=== PATIENT | male | born 1955 | race Caucasian/White ===

== ENCOUNTER 2016-09-04 11:53 | Observation (INO) | payer MEDICARE, OTHER ==
[2016-09-04] MEDS ORDERED: SODIUM CHLORIDE 0.9% 1,000 ML IV STA ×2 (12:01→12:04)
[2016-09-04] MEDS ORDERED: METOCLOPRAMIDE 5 MG/ML 2 ML VIAL IVP STA (12:01)
[2016-09-04] MEDS ORDERED: HYDROCORTISONE SUCCINATE 100 MG/2 ML VIAL IV STA (12:02)
[2016-09-04] MEDS ORDERED: RX INFO: IV CONTRAST WAS GIVEN 1 EACH MISC MISCELLANE PRN (12:08)
--- NOTE | 2016-09-04 12:12 | ED ---
General Adult HPI - General Chief complaint: Dizziness Stated complaint: nausea/vomiting Time Seen by Provider: 09/04/16 11:54 Source: patient, family, RN notes reviewed Mode of arrival: EMS Limitations: physical limitation - History of Present Illness Initial comments: Patient is a pleasant 61-year-old male presenting to the emergency Department with complaints of nausea and vomiting. Onset was just within the past half hour. Sudden onset. No recent illness. Patient has had similar symptoms approximately 3 times previously. Daily states this is related to his pituitary disease. Patient has a known pituitary tumor and has undergone surgery and Gamma knife. Patient still has the tumor however is unable to have further treatment for this. Patient was told when this happens to take his stress dose of steroids. They're unclear patient has a diagnosed history of adrenal insufficiency. Patient has not been taking his regular steroids recently because he did not like how they made him feel. Patient has been off his regular steroid dose for months. Patient does have some dizziness associated with this. Patient vomits and become sweaty and sometimes does pass out. - Related Data Home Medications Medication Instructions Recorded Confirmed Aspirin 325 mg PO DAILY 09/04/16 09/04/16 Cabergoline 0.5 mg PO WEEKLY 09/04/16 09/04/16 Cholecalciferol [Vitamin D3] 1,000 unit PO DAILY 09/04/16 09/04/16 Levothyroxine Sodium [Synthroid] 112 mcg PO DAILY 09/04/16 09/04/16 Multivitamin [Men's Multi-Vitamin] 1 tab PO DAILY 09/04/16 09/04/16 Niacin 500 mg PO DAILY 09/04/16 09/04/16 Omeprazole [PriLOSEC] 20 mg PO AC-BRKFST 09/04/16 09/04/16 Potassium Chloride 8 meq PO DAILY 09/04/16 09/04/16 Sildenafil Citrate [Sildenafil] 10 mg PO DAILY PRN 09/04/16 09/04/16 Testosterone Cypionate 200 mg IM Q14D 09/04/16 09/04/16 [Depo-Testosterone] Allergies Allergy/AdvReac Type Severity Reaction Status Date / Time codeine Allergy Unknown Verified 09/04/16 13:38 morphine AdvReac Unknown Verified 09/04/16 13:38 Review of Systems ROS Statement: Those systems with pertinent positive or pertinent negative responses have been documented in the HPI. ROS Other: All systems not noted in ROS Statement are negative. Constitutional: Denies: fever Eyes: Denies: eye pain ENT: Denies: ear pain Respiratory: Denies: cough Cardiovascular: Denies: chest pain Endocrine: Denies: fatigue Gastrointestinal: Reports: nausea, vomiting. Denies: abdominal pain Genitourinary: Denies: dysuria Musculoskeletal: Denies: back pain Skin: Denies: rash Neurological: Reports: vertigo. Denies: headache Past Medical History Additional Past Medical History / Comment(s): PITUITARY TUMOR. History of Any Multi-Drug Resistant Organisms: None Reported Additional Past Surgical History / Comment(s): BRAIN SURGERY TO REMOVE TUMOR 1999, 2001,"MESH SURGERY ON STOMACH- HERNIA" Past Psychological History: No Psychological Hx Reported Smoking Status: Never smoker Past Alcohol Use History: None Reported Past Drug Use History: None Reported General Exam Limitations: physical limitation General appearance: alert Head exam: Present: atraumatic Eye exam: Present: normal appearance, PERRL ENT exam: Present: normal oropharynx Neck exam: Present: normal inspection Respiratory exam: Present: normal lung sounds bilaterally Cardiovascular Exam: Present: regular rate, normal rhythm GI/Abdominal exam: Present: soft. Absent: tenderness Extremities exam: Present: normal inspection. Absent: pedal edema, calf tenderness Back exam: Present: normal inspection Neurological exam: Present: alert, oriented X3, CN II-XII intact. Absent: motor sensory deficit Expanded Patient oriented to: Present: person, place, time Speech: Present: fluid speech Cranial nerves: EOM's Intact: Normal Motor strength exam: RUE: 5, LUE: 5, RLE: 5, LLE: 5 Eye Response: (4) open spontaneously Motor Response: (6) obeys commands Verbal Response: (5) oriented Psychiatric exam: Present: normal affect, normal mood Skin exam: Absent: rash Course Vital Signs 09/04/16 09/04/16 09/04/16 11:55 14:27 15:13 Temperature 97 F L Pulse Rate 58 L 60 79 Respiratory 18 18 18 Rate Blood Pressure 129/77 142/78 124/59 O2 Sat by Pulse 95 95 96 Oximetry EKG Findings - EKG Comments: EKG Findings:: Sinus rhythm at 68. First-degree AV block with a ID of 220. PVC present. QRS 94. QT 416. QTC 442. Normal axis. Normal QRS. No acute ST change. Medical Decision Making - Medical Decision Making Patient reexamined and significantly improved. Patient and family updated on results and plan. Case was discussed in detail with Dr. Logan, who will admit for this. Patient. Patient will be observed secondary to likely history of adrenal insufficiency for monitoring and of blood pressure and further illness. - Lab Data Result diagrams: 09/04/16 11:20 09/04/16 11:20 Lab Results 09/04/16 09/04/16 09/04/16 Range/Units 11:20 11:20 11:20 WBC 6.4 (3.8-10.6) k/uL RBC 5.12 (4.30-5.90) m/uL Hgb 16.6 (13.0-17.5) gm/dL Hct 47.9 (39.0-53.0) % MCV 93.5 (80.0-100.0) fL MCH 32.4 (25.0-35.0) pg MCHC 34.7 (31.0-37.0) g/dL RDW 12.0 (11.5-15.5) % Plt Count 172 (150-450) k/uL Neutrophils % 61 % Lymphocytes % 27 % Monocytes % 6 % Eosinophils % 3 % Basophils % 1 % Neutrophils # 3.9 (1.3-7.7) k/uL Lymphocytes # 1.7 (1.0-4.8) k/uL Monocytes # 0.4 (0-1.0) k/uL Eosinophils # 0.2 (0-0.7) k/uL Basophils # 0.1 (0-0.2) k/uL Sodium 142 (137-145) mmol/L Potassium 4.3 (3.5-5.1) mmol/L Chloride 107 (98-107) mmol/L Carbon Dioxide 23 (22-30) mmol/L Anion Gap 12 mmol/L BUN 17 (9-20) mg/dL Creatinine 1.00 (0.66-1.25) mg/dL Est GFR (MDRD) Af Amer >60 (>60 ml/min/1.73 sqM) Est GFR (MDRD) Non-Af >60 (>60 ml/min/1.73 sqM) Glucose 140 H (74-99) mg/dL Calcium 9.0 (8.4-10.2) mg/dL Magnesium 2.0 (1.6-2.3) mg/dL Total Bilirubin 0.6 (0.2-1.3) mg/dL AST 26 (17-59) U/L ALT 37 (21-72) U/L Alkaline Phosphatase 75 (38-126) U/L Total Creatine Kinase 154 (55-170) U/L CK-MB (CK-2) 2.3 (0.0-2.4) ng/mL CK-MB (CK-2) Rel Index 1.5 Troponin I <0.012 (0.000-0.034) ng/mL Total Protein 6.8 (6.3-8.2) g/dL Albumin 4.3 (3.5-5.0) g/dL TSH 1.370 (0.465-4.680) mIU/L Free T4 1.11 (0.78-2.19) ng/dL Free T3 pg/mL 3.6 (2.8-5.3) pg/ml Prolactin <1.4 L (3.7-17.9) ng/mL Cortisol 20 ug/dL - Radiology Data Radiology results: image reviewed (Chest x-ray shows no acute process. Computed tomography scan of the brain does show fullness in the sellar region.) Disposition Clinical Impression: Nausea and vomiting, Adrenal insufficiency Disposition: ADMITTED IP TO THIS HOSP
[2016-09-04] MEDS ORDERED: FAMOTIDINE 20 MG/2 ML VIAL IV STA (12:15)
[2016-09-04 12:29] LABS: Basophils # (A) 0.1 k/uL (0-0.2); Basophils % (A) 1 %; CH 34.1; CHCM 36.5; Eosinophils # (A) 0.2 k/uL (0-0.7); Eosinophils % (A) 3 %; HCT 47.9 % (39.0-53.0); HDW 2.75; HGB 16.6 gm/dL (13.0-17.5); Luc # (Auto) 0.16; Luc % (Auto) 3; Lymphocytes # (A) 1.7 k/uL (1.0-4.8); Lymphocytes % (A) 27 %; MCH 32.4 pg (25.0-35.0); MCHC 34.7 g/dL (31.0-37.0); MCV 93.5 fL (80.0-100.0); Mean Platelet Volume 6.5; Monocytes # (A) 0.4 k/uL (0-1.0); Monocytes % (A) 6 %; Neutrophils # (A) 3.9 k/uL (1.3-7.7); Neutrophils % (A) 61 %; RBC 5.12 m/uL (4.30-5.90); WBC 6.4 k/uL (3.8-10.6)
[2016-09-04 12:38] LABS: ALT 37 U/L (21-72); AST 26 U/L (17-59); Alkaline Phosphatase 75 U/L (38-126); Anion Gap 12 mmol/L; Blood Urea Nitrogen 17 mg/dL (9-20); Carbon Dioxide 23 mmol/L (22-30); Chloride 107 mmol/L (98-107); Glucose 140 mg/dL (74-99); Non-African American GFR(MDRD) >60 (>60 ml/min/1.73 sqM); Potassium 4.3 mmol/L (3.5-5.1); Sodium 142 mmol/L (137-145); Total Bilirubin 0.6 mg/dL (0.2-1.3); Total Protein 6.8 g/dL (6.3-8.2)
[2016-09-04 12:52] LABS: Creatine Kinase 154 U/L (55-170)
[2016-09-04 12:57] LABS: Prolactin <1.4 ng/mL (3.7-17.9)
[2016-09-04 13:06] LABS: Creatine Kinase MB 2.3 ng/mL (0.0-2.4); Troponin I <0.012 ng/mL (0.000-0.034)
--- NOTE | 2016-09-04 13:43 | CT ---
EXAMINATION TYPE: CT brain wo/w con DATE OF EXAM: 09/04/2016 1:33 PM COMPARISON: NONE HISTORY: near syncope with h/o Pituitary tumor CT DLP: 2345 mGycm Automated Exposure Control for Dose Reduction was Utilized. TECHNIQUE: CT scan of the head is performed with IV contrast.,CT scan of the head is performed withou t and with IV Contrast, patient injected with 100 mL of Omnipaque 300. FINDINGS: Noncontrast images show no acute intracranial hemorrhage or midline shift. The ventricles and sulci are within normal limits in size. Cardenas-white matter differentiation is maintained. Postcon trast images show no suspicious enhancing intraparenchymal mass. There is however expansion of the se lla suggestion of calcific and soft tissue density, sellar mass or recurrent pituitary neoplasm needs to BE considered. Erosive changes into the bilateral sphenoid sinuses is felt present with mass exte nsion. Indistinct margins from adjacent carotid siphons are noted. Optic chiasm is not effaced. The g lobes are intact and the remainder of the paranasal sinuses are clear. IMPRESSION: Abnormal expansile sellar mass in which recurrent neoplasm or pituitary macroadenoma need s to BE considered. Correlation with old outside CT or MRI may be beneficial. MRI and neurosurgical f ollow-up may be beneficial.
--- NOTE | 2016-09-04 13:47 | XR ---
EXAMINATION TYPE: XR chest 2V DATE OF EXAM: 09/04/2016 1:38 PM COMPARISON: NONE HISTORY: Vomiting and nausea FINDINGS: The lungs are clear and there is no pneumothorax, pleural effusion, or focal pneumonia. There is pl eural-based thickening bilaterally and mild cardiomegaly. Hyperinflation suggests COPD. Mild hypertro phic change of the spine. IMPRESSION: 1. No acute process. 2. Correlate for COPD and chronic interstitial lung disease.
[2016-09-04] MEDS ORDERED: NALOXONE 0.4 MG/ML 1 ML VIAL IV PRN (15:29)
[2016-09-04] MEDS ORDERED: ONDANSETRON 4 MG/2 ML VIAL IVP PRN (15:29)
[2016-09-04] MEDS ORDERED: SODIUM CHLORIDE 0.9% 1,000 ML IV SCH (15:30)
[2016-09-04 15:44] LABS: Appearance,Urine Clear (Clear); Bilirubin,Urine Negative (Negative); Glucose,Urine (UA) Negative (Negative); Ketones,Urine Negative (Negative); Leukocyte Esterase,Urine Negative (Negative); Nitrite,Urine Negative (Negative); Protein,Urine Negative (Negative); UA Billing (MACRO vs. MICRO) CHEM; Urobilinogen,Urine <2.0 mg/dL (<2.0)
[2016-09-04] MEDS ORDERED: MECLIZINE 25 MG TAB PO PRN (16:42)
[2016-09-04] MEDS: HYDROCORTISONE SUCCINATE 100 MG/2 ML VIAL IV SCH (17:48)
[2016-09-05] MEDS: HYDROCORTISONE SUCCINATE 100 MG/2 ML VIAL IV SCH ×3 (00:03→12:02)
[2016-09-05 08:29] VITALS: RESP 18
[2016-09-05] MEDS ORDERED: PANTOPRAZOLE 40 MG/10 ML VIAL IV SCH (09:00)
[2016-09-05 12:31] VITALS: BP 135/71; PULSE 88; TEMP 97.5
--- NOTE | 2016-09-05 16:16 | HP ---
H&P AND DISCHARGE SUMMARY DATE OF ADMISSION: Patient is a 61-year-old pleasant gentleman who came into the emergency department with complaints of nausea, vomiting. Patient had similar episodes in the past. Whenever he is under stress, patient has these symptoms of nausea, vomiting, lightheadedness, as patient has a pituitary macroadenoma with panhypopituitarism, because of which patient is on hormone supplementation, including testosterone thyroid supplementation and cortisol supplementation. Patient came in with similar symptoms. Patient denied any fever or chills. Patient denied any dysuria. Patient denied any abdominal pain. Patient denied flu-like symptoms. Patient was given IV fluids, watched one night, and patient's symptoms have resolved at this point of time. Patient apparently was not under stress yesterday when he had these symptoms. Patient had a CT of the head which did show macroadenoma. Patient will be asked to follow up with the neurosurgeon he normally follows up with for this macroadenoma. Patient has an appointment to see the doctor. Patient underwent pituitary tumor therapy and gamma knife surgery in the past. REVIEW OF SYSTEMS: CONSTITUTIONAL: No fever, no malaise, no fatigue. HEENT: No recent visual problems or hearing problems. Denied any sore throat. CARDIOVASCULAR: No chest pain, orthopnea, PND, no palpitations, no syncope. PULMONARY: No shortness of breath, no cough, no hemoptysis. GASTROINTESTINAL: As described in HPI. NEUROLOGICAL: No headaches, no weakness, no numbness. HEMATOLOGICAL: Denies any bleeding or petechiae. GENITOURINARY: Denies any burning micturition, frequency, or urgency. MUSCULOSKELETAL/RHEUMATOLOGICAL: Denies any joint pain, swelling, or any muscle pain. ENDOCRINE: Denies any polyuria or polydipsia. The rest of the 14 point review of systems is negative. Home medications include: 1. Aspirin. 2. Cabergoline. 3. Cholecalciferol. 4. Levothyroxine. 5. Niacin. 6. Omeprazole. 7. Potassium chloride. 8. Sildenafil. 9. Testosterone. ALLERGIES: CODEINE and MORPHINE. Past medical history is significant for pituitary tumor and brain surgery for removal of pituitary tumor. Panhypopituitarism. SOCIAL HISTORY: Denied any smoking, alcohol abuse or any drug abuse. FAMILY HISTORY: Denied any family history of hypertension or diabetes mellitus or coronary artery disease in the family. PHYSICAL EXAMINATION: VITAL SIGNS: Temperature 97.0, pulse of 60, respiratory rate of 18, blood pressure 124/59. Saturating at 96% on room air. GENERAL: The patient is alert and oriented x3, not in any acute distress. Well developed, well nourished. HEENT: Pupils are round and equally reacting to light. EOMI. No scleral icterus. No conjunctival pallor. Normocephalic, atraumatic. No pharyngeal erythema. No thyromegaly. CARDIOVASCULAR: S1 and S2 present. No murmurs, rubs, or gallops. PULMONARY: Chest is clear to auscultation, no wheezing or crackles. ABDOMEN: Soft, nontender, nondistended, normoactive bowel sounds. No palpable organomegaly. MUSCULOSKELETAL: No joint swelling or deformity. EXTREMITIES: No cyanosis, clubbing, or pedal edema. NEUROLOGICAL: Gross neurological examination did not reveal any focal deficits. SKIN: No rashes. LABORATORY DATA: CBC, CMP are essentially within normal limits. ACTH is less than 5. Prolactin level is low at 1.4, as patient is on cabergoline. Creatinine is essentially within normal limits. ASSESSMENT AND PLAN: 1. Nausea, vomiting, lightheadedness secondary to panhypopituitarism. No further intervention at this point of time. Patient will follow up with his regular county treasurer and Neurosurgery as an outpatient. Patient received IV fluids ( ) watched him overnight. Patient will be discharged today. 2. Panhypopituitarism. Further evaluation and treatment and followup as per his regular county treasurer and Neurosurgery. Patient can be continued on levothyroxine, testosterone, stress doses of steroids, cabergoline. 3. Obesity. Counseling was provided regarding that. Patient will be discharged today.
[2016-09-06] MEDS ORDERED: PANTOPRAZOLE 40 MG TABLET PO SCH (09:00)
== END 2016-09-05 14:10 | disposition home or self-care (01) ==
LOC: EC 11:53 → 3OBS 15:29
PROVIDERS: ADMIT Internal Medicine; ATTEND Internal Medicine
DX: E23.0 Hypopituitarism (principal); R11.2 Nausea with vomiting, unspecified; R42 Dizziness and giddiness; E66.9 Obesity, unspecified; D35.2 Benign neoplasm of pituitary gland; Z79.82 Long term (current) use of aspirin; Z79.899 Other long term (current) drug therapy; Z88.5 Allergy status to narcotic agent
CPT/HCPCS: 99285 ×2; 96374 ×2; 96375 ×5; 96361 ×4; 96376 ×2; 36415; 93005; 84439; 84481; 80053; 82533; 82550; 82553; 83735; 84443; 84484; 85025; 81003; 84146; 82024; 71020; 70470; G0378 ×2; J2765; J1720 ×2; J2405; Q9967; C9113

== ENCOUNTER → 2016-11-23 | Outpatient (CLI) | payer OTHER ==
--- NOTE | 2016-11-29 11:52 | P.ARTDOP ---
Arterial Doppler LOWER EXTREMITY ARTERIAL DOPPLER: DATE OF SERVICE: 11/23/2016 Reason for study: Left leg ulcer. Doppler waveforms: Multiphasic bilaterally throughout. Pulse volume recording: Normal configuration. Pressure gradients: None. Ankle-brachial indices: Greater than 1 bilaterally. Toe pressures: 1:15 on the right, 126 on the left Impression: Normal study.
== END | disposition home or self-care (01) ==
LOC: RADUSWWP 14:24
PROVIDERS: ATTEND Family Medicine
DX: L97.529 Non-pressure chronic ulcer of other part of left foot with unspecified severity (principal)
CPT/HCPCS: 93923

== ENCOUNTER → 2017-06-13 | Outpatient (CLI) | payer OTHER | END | disposition home or self-care (01) | LOC: LABWHC1 07:27 | PROVIDERS: ATTEND Internal Medicine Endocrinology, Diabetes & Metabolism | DX: D35.2 Benign neoplasm of pituitary gland (principal) | CPT/HCPCS: 36415; 82024; 82533 ==

== ENCOUNTER → 2018-08-08 | Outpatient (CLI) | payer OTHER ==
--- NOTE | 2018-08-11 22:18 | MR ---
EXAMINATION TYPE: MR knee LT wo con DATE OF EXAM: 08/08/2018 COMPARISON: None HISTORY: 63-year-old male Pain in left knee TECHNIQUE: Multiplanar, multisequence imaging of the left knee is performed without IV contrast. FINDINGS: ACL and PCL remain intact. MCL is intact but is medially bowed secondary to an underlying torn and extruded medial meniscus. Tea r extends throughout the meniscal body with a large partial radial tear at the posterior root. There is severe loss of cartilage and joint space within the mid weightbearing and mid peripheral asp ect of the joint with reactive marrow edema and degenerative spurring. The LCL complex appears intact. Degenerative signal is noted within the lateral meniscus. No discrete meniscal tear is seen. There is degenerative spurring of the lateral compartment with overall maintained lateral compartment articul ar cartilage. Moderate diffuse cartilage loss along the patellar facets with degenerative spurring in the patellofe moral compartment. There is a scebv-tm-gkkexfqk knee joint effusion and a small leaking Lazaro's cyst measuring 5.0 cm lo ng. Small loose bodies are present in the anterior aspect of the tibiofemoral joint measuring 1 cm. Extensor mechanism is intact. Prominent intermediate signal along the proximal deep fibers of the pat ellar tendon compatible with tendinosis. Nonspecific anterior soft tissue swelling. Normal popliteal artery anatomy in muscle bulk. No suspicious bone marrow placement. Some patchy red marrow is present into be seen in the setting of anemia, obesity, smoking, and chronic disease. IMPRESSION: 1. Severe medial compartmental osteoarthrosis with a torn and extruded medial meniscus. Reactive ana ow signal changes prominent along the mid weightbearing and mid peripheral aspect of the medial vladislav rtment joint. 2. Additional degenerative spurring in the lateral and patellofemoral compartments with mild overall patellofemoral compartment osteoarthrosis. 3. Gqjiw-dr-uwtiwfut knee joint effusion with loose bodies in the anterior joint measuring 1 cm and a small leaking Lazaro's cyst. 4. Prominent proximal patellar tendinosis without discrete tear.
== END | disposition home or self-care (01) ==
LOC: RADMRIMAIN 12:58
DX: S83.242A Other tear of medial meniscus, current injury, left knee, initial encounter (principal); M17.12 Unilateral primary osteoarthritis, left knee; M71.22 Synovial cyst of popliteal space [Baker], left knee; M67.864 Other specified disorders of tendon, left knee

== ENCOUNTER 2020-11-03 12:39 | Emergency (ER) | payer MEDICARE, OTHER ==
[2020-11-03 14:53] LABS: Basophils # (A) 0.1 k/uL (0-0.2); Basophils % (A) 1 %; Eosinophils % (A) 0 %; HCT 39.4 % (39.0-53.0); HGB 14.2 gm/dL (13.0-17.5); Lymphocytes # (A) 0.4 k/uL (1.0-4.8); Lymphocytes % (A) 3 %; MCH 32.4 pg (25.0-35.0); MCV 90.1 fL (80.0-100.0); Mean Platelet Volume 7.1; Monocytes # (A) 0.6 k/uL (0-1.0); Monocytes % (A) 6 %; Neutrophils # (A) 9.4 k/uL (1.3-7.7); Neutrophils % (A) 88 %; Platelet Count 283 k/uL (150-450); RBC 4.38 m/uL (4.30-5.90); RDW 12.1 % (11.5-15.5); WBC 10.8 k/uL (3.8-10.6)
--- NOTE | 2020-11-03 14:53 | XR ---
EXAMINATION TYPE: XR chest 1V portable DATE OF EXAM: 11/03/2020 COMPARISON: 09/04/2016 HISTORY: Difficulty breathing TECHNIQUE: Single frontal view of the chest is obtained. FINDINGS: Patchy bilateral interstitial changes are noted. Heart is enlarged. No pleural effusion or pneumothorax. Underlying COPD suspected. IMPRESSION: Bilateral diffuse interstitial pattern correlate for interstitial pneumonia.
[2020-11-03] MEDS ORDERED: BAMLANIVIMAB (EUA) 700 MG, ETESEVIMAB (EUA) 1,400 MG in SODIUM CHLORIDE 0.9% 50 ML IVPB ONE (15:00)
[2020-11-03 15:09] LABS: ALT 27 U/L (4-49); AST 36 U/L (17-59); African American GFR (CKD) >90 (>60 ml/min/1.73 sqM); Albumin 3.4 g/dL (3.5-5.0); Alkaline Phosphatase 57 U/L (38-126); Anion Gap 9 mmol/L; Blood Urea Nitrogen 23 mg/dL (9-20); Calcium 8.6 mg/dL (8.4-10.2); Carbon Dioxide 25 mmol/L (22-30); Chloride 99 mmol/L (98-107); Glucose 164 mg/dL (74-99); Non-African American GFR(CKD) >90 (>60 ml/min/1.73 sqM); Potassium 4.5 mmol/L (3.5-5.1); Sodium 133 mmol/L (137-145); Total Bilirubin 0.7 mg/dL (0.2-1.3); Total Protein 6.1 g/dL (6.3-8.2)
--- NOTE | 2020-11-03 15:47 | ED ---
SOB HPI - General Chief Complaint: Shortness of Breath Stated Complaint: COVID +,CHACHO, Low OXygen Time Seen by Provider: 11/03/20 12:55 Source: patient Mode of arrival: ambulatory Limitations: no limitations - History of Present Illness Initial Comments: Patient is a 65-year-old male presents emergency Department with reported shortness of breath and cough. Patient was seen at [facility] on the second for similar complaint and was diagnosed with Covid. He was discharged home on prednisone. Patient has been taking medications as directed without improvement in his symptoms. He returned to [facility] 2 days ago stating that his breathing was getting worse. He reports that he was given 2 Tylenol and discharged home. He has been checking his pulse ox at home and states it has been dropping down into the 80s. Patient feels short of breath with walking. Also admits to nausea and diarrhea. Patient denies previous history of underlying pulmonary or cardiac issues. Denies any chest pain. No lower trauma swelling. No history of DVT or PE. No other alleviating, precipitating modifying factors - Related Data Home Medications Medication Instructions Recorded Confirmed Aspirin 325 mg PO DAILY 09/04/16 09/19/17 Cabergoline 0.5 mg PO WEEKLY 09/04/16 09/19/17 Cholecalciferol [Vitamin D3] 1,000 unit PO DAILY 09/04/16 09/19/17 Levothyroxine Sodium [Synthroid] 112 mcg PO DAILY 09/04/16 09/19/17 Multivitamin [Men's Multi-Vitamin] 1 tab PO DAILY 09/04/16 09/19/17 Sildenafil Citrate [Sildenafil] 10 mg PO DAILY PRN 09/04/16 09/19/17 Testosterone Cypionate 200 mg IM Q14D 09/04/16 09/19/17 [Depo-Testosterone] Allergies Allergy/AdvReac Type Severity Reaction Status Date / Time codeine Allergy Unknown Verified 11/03/20 13:02 morphine AdvReac Unknown Verified 11/03/20 13:02 Review of Systems ROS Statement: Those systems with pertinent positive or pertinent negative responses have been documented in the HPI. ROS Other: All systems not noted in ROS Statement are negative. Past Medical History Past Medical History: GERD/Reflux, Memory Impairment, Osteoarthritis (OA), Pneumonia, Prostate Disorder, Sleep Apnea/CPAP/BIPAP, Thyroid Disorder Additional Past Medical History / Comment(s): PITUITARY TUMOR removed x 2 has some short term memory since sx .cyst on liver,asthma as child, gout, chronic b ack pain,lt lower leg wound since mar 2016(lower legs discolored( stated poor circulation), in the past took meds for bp and chol-took himself off them, cataracts, had pne and shingles vaccine at [facility] closed at time of admit unable to verify dates. History of Any Multi-Drug Resistant Organisms: None Reported Past Surgical History: Hernia Repair Additional Past Surgical History / Comment(s): sx to removed pituitary tumor-it grew back and in 1999 had it removed again,also had gamma knife radiation tx, deviated septum repair, jaw sx-removed benign tumor, metal removed from rt eye, colonoscopy/polypectomt(benign), 2001,"MESH SURGERY ON STOMACH- HERNIA" Past Anesthesia/Blood Transfusion Reactions: Postoperative Nausea & Vomiting (PONV) Additional Past Anesthesia/Blood Transfusion Reaction / Comment(s): "sensative to opiod based narcotics" never received any blood. Past Psychological History: No Psychological Hx Reported Smoking Status: Former smoker Past Alcohol Use History: None Reported Past Drug Use History: None Reported - Past Family History Mother Family Medical History: Hypertension, Myocardial Infarction ([place]) Additional Family Medical History / Comment(s): 13 people on mom's side of family from [place] Father Family Medical History: Myocardial Infarction ([place]) Additional Family Medical History / Comment(s): grandfather cad, from blood clot General Exam Limitations: no limitations General appearance: alert, in no apparent distress Head exam: Present: atraumatic, normocephalic, normal inspection Eye exam: Present: normal appearance, PERRL, EOMI. Absent: scleral icterus, c onjunctival injection, periorbital swelling ENT exam: Present: normal exam, mucous membranes moist Neck exam: Present: normal inspection. Absent: tenderness, meningismus, lymphadenopathy Respiratory exam: Present: normal lung sounds bilaterally. Absent: respiratory distress, wheezes, rales, rhonchi, stridor Cardiovascular Exam: Present: regular rate, normal rhythm, normal heart sounds. Absent: systolic murmur, diastolic murmur, rubs, gallop, clicks GI/Abdominal exam: Present: soft, normal bowel sounds. Absent: distended, tenderness, guarding, rebound, rigid Extremities exam: Present: normal inspection, full ROM, normal capillary refill. Absent: tenderness, pedal edema, joint swelling, calf tenderness Back exam: Present: normal inspection Neurological exam: Present: alert, oriented X3, CN II-XII intact Psychiatric exam: Present: normal affect, normal mood Skin exam: Present: warm, dry, intact, normal color. Absent: rash Course Vital Signs 11/03/20 11/03/20 11/03/20 12:53 13:37 16:45 Temperature 99.1 F 99.9 F H Pulse Rate 82 71 69 Respiratory 18 24 18 Rate Blood Pressure 122/77 140/86 O2 Sat by Pulse 88 L 96 Oximetry 11/03/20 16:55 Temperature Pulse Rate 89 Respiratory 18 Rate Blood Pressure 136/87 O2 Sat by Pulse 94 L Oximetry Medical Decision Making - Medical Decision Making Upon arrival the patient is placed into room 15. Thorough history and physical exam was performed per patient's taken off of the supplemental oxygen and maintained saturations around 91% without ambulation. I did discuss diagnosis, differential and treatment plans. Laboratory studies are conducted. Chest x- ray is performed which demonstrates bilateral diffuse interstitial pattern. These results are discussed with patient. Patient is requesting BAM infusion and discharge. This treatment is discussed with the patient versus inpatient placement in the patient does continue to request outpatient treatment. Patient was given BAM infusion. Instructed to follow up with his primary care doctor. Quarantine until his symptoms improve. Return to the emergency department for any new or worsening symptoms. Continue to watch his pulse ox. The patient agreed to this and is discharged home in stable condition with strict return parameters - Lab Data Result diagrams: 11/03/20 14:30 11/03/20 14:30 Lab Results 11/03/20 11/03/20 11/03/20 Range/Units 14:30 14:30 15:01 WBC 10.8 H (3.8-10.6) k/uL RBC 4.38 (4.30-5.90) m/uL Hgb 14.2 (13.0-17.5) gm/dL Hct 39.4 (39.0-53.0) % MCV 90.1 (80.0-100.0) fL MCH 32.4 (25.0-35.0) pg MCHC 36.0 (31.0-37.0) g/dL RDW 12.1 (11.5-15.5) % Plt Count 283 (150-450) k/uL MPV 7.1 Neutrophils % 88 % Lymphocytes % 3 % Monocytes % 6 % Eosinophils % 0 % Basophils % 1 % Neutrophils # 9.4 H (1.3-7.7) k/uL Lymphocytes # 0.4 L (1.0-4.8) k/uL Monocytes # 0.6 (0-1.0) k/uL Eosinophils # 0.0 (0-0.7) k/uL Basophils # 0.1 (0-0.2) k/uL Sodium 133 L (137-145) mmol/L Potassium 4.5 (3.5-5.1) mmol/L Chloride 99 (98-107) mmol/L Carbon Dioxide 25 (22-30) mmol/L Anion Gap 9 mmol/L BUN 23 H (9-20) mg/dL Creatinine 0.78 (0.66-1.25) mg/dL Est GFR (CKD-EPI)AfAm >90 (>60 ml/min/1.73 sqM) Est GFR (CKD-EPI)NonAf >90 (>60 ml/min/1.73 sqM) Glucose 164 H (74-99) mg/dL Plasma Lactic Acid Too 1.9 (0.7-2.0) mmol/L Calcium 8.6 (8.4-10.2) mg/dL Total Bilirubin 0.7 (0.2-1.3) mg/dL AST 36 (17-59) U/L ALT 27 (4-49) U/L Alkaline Phosphatase 57 (38-126) U/L Total Protein 6.1 L (6.3-8.2) g/dL Albumin 3.4 L (3.5-5.0) g/dL - EKG Data EKG Comments: EKG demonstrates a sinus rhythm with a ventricular rate of 70. GA interval 180. QRS E4. QTC 440. No acute ST segment elevations or depressions Disposition Clinical Impression: COVID-19 Disposition: HOME SELF-CARE Condition: Stable Instructions (If sedation given, give patient instructions): Coronavirus Disease 2019 (COVID-19) Additional Instructions: You received BAM today for Covid. Continue to watch your pulse ox. Return to the ED for any new or worsening symptoms. Is patient prescribed a controlled substance at d/c from ED?: No Referrals: [facility],Clinic [Primary Care Provider] - 1-2 days Time of Disposition: 15:46
[2020-11-03] MEDS ORDERED: SODIUM CHLORIDE 0.9% 50 ML IVPB ONE (16:00)
[2020-11-03 16:46] VITALS: RESP 18; TEMP 99.9
[2020-11-03 16:56] VITALS: BP 136/87; PULSE 89
== END 2020-11-03 16:55 | disposition home or self-care (01) ==
LOC: EC 12:39
DX: U07.1 COVID-19 (principal); J45.909 Unspecified asthma, uncomplicated; K21.9 Gastro-esophageal reflux disease without esophagitis; M19.90 Unspecified osteoarthritis, unspecified site; G47.33 Obstructive sleep apnea (adult) (pediatric); Z87.891 Personal history of nicotine dependence; Z79.82 Long term (current) use of aspirin
CPT/HCPCS: 36415; 93005; 80053; 83605; 85025; 71045; 99285; 96374; Q0245

== ENCOUNTER 2020-11-15 20:28 | Inpatient (IN) | payer MEDICARE ==
--- NOTE | 2020-11-15 20:43 | ED ---
General Adult HPI - General Source: patient, RN notes reviewed Mode of arrival: ambulatory Limitations: no limitations <Taiwo Stroud - Last Filed: 11/16/20 03:07> <Deyvi Ybarra - Last Filed: 11/30/20 21:36> - General Stated complaint: SOB,Blood in vomit Time Seen by Provider: 11/15/20 20:41 - History of Present Illness Initial comments: This a 65-year-old male presents emergency Department chief complaint shortness breath, hemoptysis. Patient states that he was here 12 days ago and received monoclonal antibodies for cold it Patient states that today he started getting some irritation from smoke when he was cooking and states that he started coughing and which she coughed up some blood. Patient states that he is having some pleuritic left-sided chest discomfort. Denies any fevers or chills. Patient states he feels like he has left-sided lung pain. Patient denies any abdominal pain or vomiting. (Taiwo Stroud) - Related Data Home Medications Medication Instructions Recorded Confirmed Aspirin 325 mg PO DAILY@0700 09/04/16 11/16/20 Cholecalciferol [Vitamin D3 (25 100 mcg PO DAILY@0700 09/04/16 11/16/20 Mcg = 1000 Iu)] Levothyroxine Sodium [Synthroid] 112 mcg PO DAILY@0600 09/04/16 11/16/20 Testosterone Cypionate 200 mg IM Q14D 09/04/16 11/16/20 [Depo-Testosterone] Atorvastatin [Lipitor] 10 mg PO HS 11/16/20 11/16/20 Furosemide [Lasix] 40 mg PO DAILY@0600 11/16/20 11/16/20 Hydrocortisone [Cortef] 5 mg PO DAILY@1500 11/16/20 11/16/20 Hydrocortisone [Cortef] 10 mg PO DAILY@0700 11/16/20 11/16/20 Omeprazole 20 mg PO DAILY@0700 11/16/20 11/16/20 Previous Rx's Medication Instructions Recorded Acetaminophen Tab [Tylenol] 650 mg PO Q6HR PRN tab 11/19/20 Ascorbic Acid [Vitamin C] 1,000 mg PO DAILY #60 tab 11/19/20 Dexamethasone [Decadron] 6 mg PO DAILY 7 Days #7 tablet 11/19/20 Zinc Sulfate [Orazinc] 220 mg PO DAILY #30 cap 11/19/20 Allergies Allergy/AdvReac Type Severity Reaction Status Date / Time codeine Allergy Unknown Verified 11/15/20 20:43 morphine AdvReac Unknown Verified 11/15/20 20:43 Review of Systems ROS Other: All systems not noted in ROS Statement are negative. <Taiwo Stroud - Last Filed: 11/16/20 03:07> ROS Other: All systems not noted in ROS Statement are negative. <Deyvi Ybarra - Last Filed: 11/30/20 21:36> ROS Statement: Those systems with pertinent positive or pertinent negative responses have been documented in the HPI. Past Medical History Past Medical History: GERD/Reflux, Memory Impairment, Osteoarthritis (OA), Pneumonia, Prostate Disorder, Sleep Apnea/CPAP/BIPAP, Thyroid Disorder Additional Past Medical History / Comment(s): PITUITARY TUMOR removed x 2 has some short term memory since sx .cyst on liver,asthma as child, gout, chronic back pain,lt lower leg wound since mar 2016(lower legs discolored( stated poor circulation), in the past took meds for bp and chol-took himself off them, cataracts, had pne and shingles vaccine at [facility] at time of admit unable to verify dates. History of Any Multi-Drug Resistant Organisms: None Reported Past Surgical History: Hernia Repair Additional Past Surgical History / Comment(s): sx to removed pituitary tumor-it grew back and in 1999 had it removed again,also had gamma knife radiation tx, deviated septum repair, jaw sx-removed benign tumor, metal removed from rt eye, colonoscopy/polypectomt(benign), 2001,"MESH SURGERY ON STOMACH- HERNIA" Past Anesthesia/Blood Transfusion Reactions: Postoperative Nausea & Vomiting (PONV) Additional Past Anesthesia/Blood Transfusion Reaction / Comment(s): "sensative to opiod based narcotics" never received any blood. Past Psychological History: No Psychological Hx Reported Smoking Status: Former smoker Past Alcohol Use History: None Reported Past Drug Use History: None Reported - Past Family History Mother Family Medical History: Hypertension, Myocardial Infarction ([place]) Additional Family Medical History / Comment(s): 13 people on mom's side of family from mi's Father Family Medical History: Myocardial Infarction ([place]) Additional Family Medical History / Comment(s): grandfather cad, from blood clot <Taiwo Stroud M - Last Filed: 11/16/20 03:07> General Exam General appearance: alert, in no apparent distress Head exam: Present: atraumatic, normocephalic, normal inspection Eye exam: Present: normal appearance, PERRL, EOMI. Absent: scleral icterus, conjunctival injection, periorbital swelling ENT exam: Present: normal exam, normal oropharynx, mucous membranes moist Neck exam: Present: normal inspection. Absent: tenderness, meningismus, lymphadenopathy Respiratory exam: Present: rhonchi. Absent: normal lung sounds bilaterally, respiratory distress, wheezes, rales, stridor Cardiovascular Exam: Present: regular rate, normal rhythm, normal heart sounds. Absent: systolic murmur, diastolic murmur, rubs, gallop, clicks Extremities exam: Absent: pedal edema, calf tenderness <Taiwo Stroud M - Last Filed: 11/16/20 03:07> Course Vital Signs 11/15/20 11/15/20 11/15/20 20:40 22:58 23:00 Temperature 98.3 F Pulse Rate 99 94 95 Respiratory 20 29 H 22 Rate Blood Pressure 151/91 138/82 O2 Sat by Pulse 95 93 L 97 Oximetry 11/15/20 11/16/20 11/16/20 23:30 00:00 00:30 Temperature Pulse Rate 97 98 92 Respiratory 19 19 30 H Rate Blood Pressure 133/89 137/88 135/85 O2 Sat by Pulse 95 94 L 95 Oximetry 11/16/20 11/16/20 11/16/20 01:00 01:15 01:16 Temperature Pulse Rate 96 96 Respiratory 18 24 25 H Rate Blood Pressure 135/86 146/93 O2 Sat by Pulse 94 L 94 L Oximetry 11/16/20 11/16/20 11/16/20 01:30 02:00 06:42 Temperature 97.9 F Pulse Rate 93 96 87 Respiratory 27 H 27 H 22 Rate Blood Pressure 146/93 144/94 130/83 O2 Sat by Pulse 94 L 93 L 93 L Oximetry 11/16/20 11/16/20 07:34 14:51 Temperature 98.0 F 98.1 F Pulse Rate 89 97 Respiratory 16 22 Rate Blood Pressure 147/81 133/90 O2 Sat by Pulse 98 95 Oximetry EKG Findings - EKG Comments: EKG Findings:: EKG performed at 22:37 normal sinus rhythm rate of 97 ME 168 QRS 78 QT/QTC 340/431 <Taiwo Stroud - Last Filed: 11/16/20 03:07> Medical Decision Making - Lab Data Result diagrams: 11/15/20 23:02 11/15/20 23:02 <Taiwo Stroud - Last Filed: 11/16/20 03:07> - Lab Data Result diagrams: 11/15/20 23:02 11/18/20 07:15 <Deyvi Ybarra - Last Filed: 11/30/20 21:36> - Medical Decision Making CT shows evidence of small pneumothorax that is not required chest tube at this time there is a 3 cm heterogeneous cavitary area within the left upper lobe. CT shows evidence of fluid. Patient will be admitted for pulmonary evaluation, further monitoring treatment. (Taiwo Stroud) I saw this patient in conjunction with the physician commercial real estate assistant. I performed independent history and physical exam. Agree with case management. (Deyvi Ybarra) - Lab Data Lab Results 11/15/20 11/15/20 11/15/20 Range/Units 23:02 23:02 23:02 WBC 7.5 (3.8-10.6) k/uL RBC 4.39 (4.30-5.90) m/uL Hgb 14.2 (13.0-17.5) gm/dL Hct 40.6 (39.0-53.0) % MCV 92.6 (80.0-100.0) fL MCH 32.3 (25.0-35.0) pg MCHC 34.9 (31.0-37.0) g/dL RDW 12.7 (11.5-15.5) % Plt Count 135 L D (150-450) k/uL MPV 6.4 Neutrophils % 70 % Lymphocytes % 17 % Monocytes % 8 % Eosinophils % 1 % Basophils % 1 % Neutrophils # 5.3 (1.3-7.7) k/uL Lymphocytes # 1.3 (1.0-4.8) k/uL Monocytes # 0.6 (0-1.0) k/uL Eosinophils # 0.1 (0-0.7) k/uL Basophils # 0.0 (0-0.2) k/uL PT 10.3 (9.0-12.0) sec INR 1.0 (<1.2) APTT 23.1 (22.0-30.0) sec D-Dimer 0.89 H (<0.60) mg/L FEU Sodium 136 L (137-145) mmol/L Potassium 4.5 (3.5-5.1) mmol/L Chloride 104 (98-107) mmol/L Carbon Dioxide 27 (22-30) mmol/L Anion Gap 5 mmol/L BUN 22 H (9-20) mg/dL Creatinine 1.04 (0.66-1.25) mg/dL Est GFR (CKD-EPI)AfAm 87 (>60 ml/min/1.73 sqM) Est GFR (CKD-EPI)NonAf 75 (>60 ml/min/1.73 sqM) Glucose 132 H (74-99) mg/dL Plasma Lactic Acid Too (0.7-2.0) mmol/L Calcium 8.8 (8.4-10.2) mg/dL Magnesium 1.8 (1.6-2.3) mg/dL Total Bilirubin 0.6 (0.2-1.3) mg/dL AST 32 (17-59) U/L ALT 43 (4-49) U/L Alkaline Phosphatase 94 (38-126) U/L Troponin I (0.000-0.034) ng/mL Total Protein 6.1 L (6.3-8.2) g/dL Albumin 3.5 (3.5-5.0) g/dL 11/15/20 11/15/20 Range/Units 23:02 23:02 WBC (3.8-10.6) k/uL RBC (4.30-5.90) m/uL Hgb (13.0-17.5) gm/dL Hct (39.0-53.0) % MCV (80.0-100.0) fL MCH (25.0-35.0) pg MCHC (31.0-37.0) g/dL RDW (11.5-15.5) % Plt Count (150-450) k/uL MPV Neutrophils % % Lymphocytes % % Monocytes % % Eosinophils % % Basophils % % Neutrophils # (1.3-7.7) k/uL Lymphocytes # (1.0-4.8) k/uL Monocytes # (0-1.0) k/uL Eosinophils # (0-0.7) k/uL Basophils # (0-0.2) k/uL PT (9.0-12.0) sec INR (<1.2) APTT (22.0-30.0) sec D-Dimer (<0.60) mg/L FEU Sodium (137-145) mmol/L Potassium (3.5-5.1) mmol/L Chloride (98-107) mmol/L Carbon Dioxide (22-30) mmol/L Anion Gap mmol/L BUN (9-20) mg/dL Creatinine (0.66-1.25) mg/dL Est GFR (CKD-EPI)AfAm (>60 ml/min/1.73 sqM) Est GFR (CKD-EPI)NonAf (>60 ml/min/1.73 sqM) Glucose (74-99) mg/dL Plasma Lactic Acid Too 1.1 (0.7-2.0) mmol/L Calcium (8.4-10.2) mg/dL Magnesium (1.6-2.3) mg/dL Total Bilirubin (0.2-1.3) mg/dL AST (17-59) U/L ALT (4-49) U/L Alkaline Phosphatase (38-126) U/L Troponin I <0.012 (0.000-0.034) ng/mL Total Protein (6.3-8.2) g/dL Albumin (3.5-5.0) g/dL Disposition <Taiwo Stroud - Last Filed: 11/16/20 03:07> <Deyvi Ybarra - Last Filed: 11/30/20 21:36> Clinical Impression: COVID-19, Pneumothorax Disposition: ADMITTED IP TO THIS HOSP Condition: Fair
--- NOTE | 2020-11-15 22:16 | XR ---
EXAMINATION TYPE: XR chest 2V DATE OF EXAM: 11/15/2020 CLINICAL HISTORY: difficulty breathing. Covid 19 positive. Hemoptysis. TECHNIQUE: Frontal and lateral view of the chest. COMPARISON: 11/03/2020 chest radiograph FINDINGS: Redemonstrated cardiomegaly. Patchy bilateral interstitial opacities are mildly increased v ersus 11/03/2020 with more confluent peripheral bandlike opacities. No pleural effusion or pneumothorax . Right basilar likely chronic interstitial changes. Increased thoracic kyphosis and AP diameter of t he chest. IMPRESSION: Mildly increased patchy interstitial opacities of the bilateral lungs versus 11/03/2020. Fi ndings are characteristic of Covid 19 pneumonia.
[2020-11-15 23:30] LABS: Basophils % (A) 1 %; Eosinophils # (A) 0.1 k/uL (0-0.7); Eosinophils % (A) 1 %; HCT 40.6 % (39.0-53.0); HGB 14.2 gm/dL (13.0-17.5); Lymphocytes # (A) 1.3 k/uL (1.0-4.8); Lymphocytes % (A) 17 %; MCH 32.3 pg (25.0-35.0); MCHC 34.9 g/dL (31.0-37.0); MCV 92.6 fL (80.0-100.0); Mean Platelet Volume 6.4; Monocytes # (A) 0.6 k/uL (0-1.0); Monocytes % (A) 8 %; Neutrophils # (A) 5.3 k/uL (1.3-7.7); Neutrophils % (A) 70 %; RBC 4.39 m/uL (4.30-5.90); RDW 12.7 % (11.5-15.5); WBC 7.5 k/uL (3.8-10.6)
[2020-11-15 23:40] LABS: Partial Thromboplastin Time 23.1 sec (22.0-30.0); Prothrombin Time 10.3 sec (9.0-12.0)
[2020-11-15 23:41] LABS: Albumin 3.5 g/dL (3.5-5.0); Calcium 8.8 mg/dL (8.4-10.2); Magnesium 1.8 mg/dL (1.6-2.3); Potassium 4.5 mmol/L (3.5-5.1); Total Bilirubin 0.6 mg/dL (0.2-1.3); Total Protein 6.1 g/dL (6.3-8.2)
[2020-11-16 00:23] LABS: Platelet Count 135 k/uL (150-450)
[2020-11-16 01:05] LABS: D-Dimer 0.89 mg/L FEU (<0.60)
--- NOTE | 2020-11-16 02:58 | CT ---
EXAM: CT Angiography Chest With Intravenous Contrast CLINICAL HISTORY: ITS.REASON CT Reason: Hemoptysis, chest pain TECHNIQUE: Axial computed tomographic angiography images of the chest with intravenous contrast. CTDI is 49.984 mGy and DLP is 996 mGy-cm. This CT exam was performed using one or more of the following dose reduction techniques: automated exposure control, adjustment of the mA and/or kV according to patient size, and/or use of iterative reconstruction technique. MIP reconstructed images were created and reviewed. COMPARISON: Chest x-ray 11/03/2020 FINDINGS: Pulmonary arteries: Unremarkable. No pulmonary embolism. Aorta: No acute findings. No thoracic aortic aneurysm. Lungs: Patchy airspace disease scattered throughout the lungs bilaterally with somewhat peripheral predominance. No mass. Pleural space: Small to moderate left pneumothorax. 3 cm heterogeneous cavitary area within the superior left lower lobe, series 401 image 67. Adjacent pneumothorax within the fissure. No significant effusion. Heart: Coronary calcifications. No significant pericardial effusion. No evidence of RV dysfunction. Mediastinum: Moderate hiatal hernia. Bones/joints: Degenerative changes of the spine No acute fracture. No dislocation. Soft tissues: 2 cm lipoma in the right serratus anterior muscle. Lymph nodes: Unremarkable. No enlarged lymph nodes. IMPRESSION: 1. Small to moderate left pneumothorax. 2. 3 cm heterogeneous cavitary area within the superior left lower lobe. Adjacent pneumothorax within the fissure. Recommend follow-up. 3. Patchy airspace disease scattered throughout the lungs bilaterally with somewhat peripheral predominance. May reflect infectious/inflammatory process. 4. No evidence of pulmonary embolism. 5. Moderate hiatal hernia. <MYCVCSECTION> Communications: 11/16/20 03:00 Call Doctor Regarding Pneumothorax, called Dr. Flores on 11/16 03:00 (-04:00)
[2020-11-16] MEDS ORDERED: ONDANSETRON 4 MG/2 ML VIAL IVP PRN (03:09)
[2020-11-16] MEDS ORDERED: NALOXONE 0.4 MG/ML 1 ML VIAL IV PRN (03:09)
[2020-11-16] MEDS ORDERED: LEVOTHYROXINE 112 MCG TAB PO SCH (06:00)
[2020-11-16] MEDS: LEVOTHYROXINE 112 MCG TAB PO SCH (10:13)
--- NOTE | 2020-11-16 11:29 | P.HPIM ---
History of Present Illness This is a pleasant 65 years old male with past medical history of gastroesophageal reflux disease, sleep apnea on CPAP/BiPAP, hypothyroidism, chronic back pain, pituitary tumor status post surgery surgical resection. He follows up at the [facility] clinic patient states that he has been tested positive for Jakub for the last 2-3 weeks. Yesterday he was having barbecue and he was doing steaks when there was a lot of smoke and he inhaled smoke followed by vigorous coughing and some bloody sputum. Also after start coughing he feels some left-sided chest pain, sharp, about 3-4/10 in severity got worse with deep breathing Presents because of dyspnea and coughing up blood. He is covid positive he denies a smoking, alcohol or illicit drugs He uses CPAP machine for his sleep apnea but he did not use it last night as he was in the hospital. He is not on home oxygen and he doesn't follow up with sales center manager. He follows up only with the [place] [facility] His vitals are stable and he is saturating 98% on 2 L oxygen via nasal cannula His CBC, BMP, liver enzymes are unremarkable. INR is normal at 1.0, d-dimer slightly elevated at 0.89, Troponin is negative less than 0.012 EKG showing normal sinus rhythm at [address]-T changes and QTC is 431 CTA of the chest showing no pulmonary embolism, 3 cm heterogenous cavity area within the superior left lower lobe. Adjacent pneumothorax within the fissure. Recommend follow-up. Patchy airspace disease scattered throughout the lungs bilaterally with somewhat peripheral predominance may reflect infectious/inflammatory process. Small to moderate left pneumothorax Pulmonary team were consulted from emergency room Review of Systems CONSTITUTIONAL: No fever, no malaise, no fatigue. HEENT: No recent visual problems or hearing problems. Denied any sore throat. CARDIOVASCULAR: No orthopnea, PND, no palpitations, no syncope. PULMONARY: No chest wall tenderness, no hemoptysis. GASTROINTESTINAL: No diarrhea, no nausea, no vomiting, no abdominal pain. Normoactive bowel sounds. NEUROLOGICAL: No headaches, no weakness, no numbness. HEMATOLOGICAL: Denies any bleeding or petechiae. GENITOURINARY: Denies any burning micturition, frequency, or urgency. MUSCULOSKELETAL/RHEUMATOLOGICAL: Denies any joint pain, swelling, or any muscle pain. ENDOCRINE: Denies any polyuria or polydipsia. Past Medical History Past Medical History: GERD/Reflux, Memory Impairment, Osteoarthritis (OA), P neumonia, Prostate Disorder, Sleep Apnea/CPAP/BIPAP, Thyroid Disorder Additional Past Medical History / Comment(s): PITUITARY TUMOR removed x 2 has some short term memory since sx .cyst on liver,asthma as child, gout, chronic back pain,lt lower leg wound since mar 2016(lower legs discolored( stated poor circulation), in the past took meds for bp and chol-took himself off them, cataracts, had pne and shingles vaccine at [facility] at time of admit unable to verify dates. History of Any Multi-Drug Resistant Organisms: None Reported Past Surgical History: Hernia Repair Additional Past Surgical History / Comment(s): sx to removed pituitary tumor-it grew back and in 1999 had it removed again,also had gamma knife radiation tx, deviated septum repair, jaw sx-removed benign tumor, metal removed from rt eye, colonoscopy/polypectomt(benign), 2001,"MESH SURGERY ON STOMACH- HERNIA" Past Anesthesia/Blood Transfusion Reactions: Postoperative Nausea & Vomiting (P ONV) Additional Past Anesthesia/Blood Transfusion Reaction / Comment(s): "sensative to opiod based narcotics" never received any blood. Past Psychological History: No Psychological Hx Reported Smoking Status: Former smoker Past Alcohol Use History: None Reported Past Drug Use History: None Reported - Past Family History Mother Family Medical History: Hypertension, Myocardial Infarction ([place]) Additional Family Medical History / Comment(s): 13 people on mom's side of family from mi's Father Family Medical History: Myocardial Infarction ([place]) Additional Family Medical History / Comment(s): grandfather cad, from blood clot Medications and Allergies Home Medications Medication Instructions Recorded Confirmed Type Aspirin 325 mg PO DAILY@0700 09/04/16 11/16/20 History Cholecalciferol [Vitamin D3] 100 mcg PO DAILY@0700 09/04/16 11/16/20 History Levothyroxine Sodium [Synthroid] 112 mcg PO DAILY@0600 09/04/16 11/16/20 History Testosterone Cypionate 200 mg IM Q14D 09/04/16 11/16/20 History [Depo-Testosterone] Atorvastatin [Lipitor] 10 mg PO HS 11/16/20 11/16/20 History Furosemide [Lasix] 40 mg PO DAILY@0600 11/16/20 11/16/20 History Hydrocortisone [Cortef] 5 mg PO DAILY@1500 11/16/20 11/16/20 History Hydrocortisone [Cortef] 10 mg PO DAILY@0700 11/16/20 11/16/20 History Omeprazole 20 mg PO DAILY@0700 11/16/20 11/16/20 History Sildenafil Citrate [Viagra] 50 mg PO DAILY PRN 11/16/20 11/16/20 History Allergies Allergy/AdvReac Type Severity Reaction Status Date / Time codeine Allergy Unknown Verified 11/15/20 20:43 morphine AdvReac Unknown Verified 11/15/20 20:43 Physical Exam Vitals: Vital Signs Temp Pulse Resp BP Pulse Ox 11/16/20 07:34 98.0 F 89 16 147/81 98 11/16/20 06:42 97.9 F 87 22 130/83 93 L 11/16/20 02:00 96 27 H 144/94 93 L 11/16/20 01:30 93 27 H 146/93 94 L 11/16/20 01:16 96 25 H 146/93 94 L 11/16/20 01:15 24 11/16/20 01:00 96 18 135/86 94 L 11/16/20 00:30 92 30 H 135/85 95 11/16/20 00:00 98 19 137/88 94 L 11/15/20 23:30 97 19 133/89 95 11/15/20 23:00 95 22 138/82 97 11/15/20 22:58 94 29 H 93 L 11/15/20 20:40 98.3 F 99 20 151/91 95 Intake and Output 11/15/20 11/16/20 11/16/20 22:59 06:59 14:59 Other: Weight 141.521 kg GENERAL: The patient is alert and oriented x3, not in any acute distress. Well developed, well nourished. HEENT: Pupils are round and equally reacting to light. EOMI. No scleral icterus. No conjunctival pallor. Normocephalic, atraumatic. No pharyngeal erythema. No thyromegaly. CARDIOVASCULAR: S1 and S2 present. No murmurs, rubs, or gallops. PULMONARY: Chest is clear to auscultation, no wheezing or crackles. ABDOMEN: Soft, nontender, nondistended, normoactive bowel sounds. No palpable organomegaly. MUSCULOSKELETAL: No joint swelling or deformity. EXTREMITIES: No cyanosis, clubbing, or pedal edema. NEUROLOGICAL: Gross neurological examination did not reveal any focal deficits. SKIN: No rashes. No petechiae Results CBC & Chem 7: 11/15/20 23:02 11/15/20 23:02 Labs: Abnormal Lab Results - Last 24 Hours (Table) 11/15/20 11/15/20 11/15/20 Range/Units 23:02 23:02 23:02 Plt Count 135 L D (150-450) k/uL D-Dimer 0.89 H (<0.60) mg/L FEU Sodium 136 L (137-145) mmol/L BUN 22 H (9-20) mg/dL Glucose 132 H (74-99) mg/dL Total Protein 6.1 L (6.3-8.2) g/dL Assessment and Plan Assessment: Left small to moderate pneumothorax Bilateral interstitial infiltrates suspicious for covid pneumonia Hypothyroidism Osteoarthritis History of GERD History of sleep apnea History of Gout Chronic back pain Plan: This is a pleasant 65 years old male who presents with bilateral Covid pneumonia and left pneumothorax continue with supportive management and follow up cl osely. Pulmonary consult Labs and medication were reviewed.. Continue same treatment. Continue with symptomatic treatment. Resume home medication. Monitor lytes and vitals. DVT and GI prophylaxis. Further recommendations depends on the clinical course of the patient DVT prophylaxis: Subcutaneous heparin GI Prophylaxis: Pepcid PT/OT: Pending Prognosis is guarded
--- NOTE | 2020-11-16 13:32 | P.CNPUL ---
History of Present Illness Consult date: 11/16/20 Requesting physician: Gilma Dominguez Reason for consult: dyspnea, cough, hypoxemia, pneumonia, abnormal CXR/CT Chief complaint: Shortness of breath and chest pain. History of present illness: Pulmonary consult dated 11/16/2020. 65-year-old male, who presents to the emergency department on November 15, complaining of shortness of breath and coughing up blood. The patient was in the emergency room a couple weeks ago, and received BAM. He actually tested positive for coronavirus back in early October. He was initially feeling okay, has been having symptoms for about 3 weeks. Over the last day or 2, things got worse to his he came into the emergency department. He apparently was cooking some stakes and inhaled some smoke, started developing worsening shortness of breath and cough. That's when he apparently coughed up some blood. He's also complaining of left-sided chest discomfort. The pain is sharp. He denies any fever or chills. He denies any nausea, vomiting, diarrhea, abdominal pain. He denies any genitourinary complaints. 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 The patient also complains of gout, asthma as a child, peripheral vascular occlusive disease, and cataracts. White count 7.5, hemoglobin hematocrit normal. Platelet count 135,000. D-dimer 0.89. Sodium 136, calcium 4.5, chlorides 104, CO2 27, anion gap normal. BUN/creatinine were 22 and 1.04. Chest x-ray shows some patchy bilateral infiltrates, and computed tomography scan showed a small to moderate left-sided pneumothorax, a cavitary area within the superior left lower lobe, patchy airspace disease throughout both lungs bilaterally, and without evidence of pulmonary embolism. Review of Systems REVIEW OF SYSTEMS: CONSTITUTIONAL: [Negative.] NEUROLOGIC: [ Negative.] HEENT: [ Negative.] CARDIAC: Left pleuritic chest pain. PULMONARY: Shortness of breath, coughing, hemoptysis. GI: [Negative.] : [Negative.] RHEUMATOLOGIC: [ Negative.] IMMUNOLOGIC: [ Negative.] ENDOCRINE: [Negative. ] DERMATOLOGIC: [Negative.] Past Medical History Past Medical History: GERD/Reflux, Memory Impairment, Osteoarthritis (OA), Pneumonia, Prostate Disorder, Sleep Apnea/CPAP/BIPAP, Thyroid Disorder Additional Past Medical History / Comment(s): PITUITARY TUMOR removed x 2 has some short term memory since sx .cyst on liver,asthma as child, gout, chronic back pain,lt lower leg wound since mar 2016(lower legs discolored( stated poor circulation), in the past took meds for bp and chol-took himself off them, cataracts, had pne and shingles vaccine at [facility] closed at time of admit unable to verify dates. History of Any Multi-Drug Resistant Organisms: None Reported Past Surgical History: Hernia Repair Additional Past Surgical History / Comment(s): sx to removed pituitary tumor-it grew back and in 1999 had it removed again,also had gamma knife radiation tx, deviated septum repair, jaw sx-removed benign tumor, metal removed from rt eye, colonoscopy/polypectomt(benign), 2001,"MESH SURGERY ON STOMACH- HERNIA" Past Anesthesia/Blood Transfusion Reactions: Postoperative Nausea & Vomiting (PONV) Additional Past Anesthesia/Blood Transfusion Reaction / Comment(s): "sensative to opiod based narcotics" never received any blood. Past Psychological History: No Psychological Hx Reported Smoking Status: Former smoker Past Alcohol Use History: None Reported Past Drug Use History: None Reported - Past Family History Mother Family Medical History: Hypertension, Myocardial Infarction ([place]) Additional Family Medical History / Comment(s): 13 people on mom's side of family from [place] Father Family Medical History: Myocardial Infarction ([place]) Additional Family Medical History / Comment(s): grandfather cad, from blood clot Medications and Allergies Home Medications Medication Instructions Recorded Confirmed Type Aspirin 325 mg PO DAILY@0700 09/04/16 11/16/20 History Cholecalciferol [Vitamin D3] 100 mcg PO DAILY@0709/04/16 11/16/20 History Levothyroxine Sodium [Synthroid] 112 mcg PO DAILY@0609/04/16 11/16/20 History Testosterone Cypionate 200 mg IM Q14D 09/04/16 11/16/20 History [Depo-Testosterone] Atorvastatin [Lipitor] 10 mg PO HS 11/16/20 11/16/20 History Furosemide [Lasix] 40 mg PO DAILY@0600 11/16/20 11/16/20 History Hydrocortisone [Cortef] 5 mg PO DAILY@1500 11/16/20 11/16/20 History Hydrocortisone [Cortef] 10 mg PO DAILY@0700 11/16/20 11/16/20 History Omeprazole 20 mg PO DAILY@0700 11/16/20 11/16/20 History Sildenafil Citrate [Viagra] 50 mg PO DAILY PRN 11/16/20 11/16/20 History Allergies Allergy/AdvReac Type Severity Reaction Status Date / Time codeine Allergy Unknown Verified 11/15/20 20:43 morphine AdvReac Unknown Verified 11/15/20 20:43 Physical Exam Osteopathic Statement: *. No significant issues noted on an osteopathic structural exam other than those noted in the History and Physical/Consult. Vitals: Vital Signs Temp Pulse Resp BP Pulse Ox 11/16/20 07:34 98.0 F 89 16 147/81 98 11/16/20 06:42 97.9 F 87 22 130/83 93 L 11/16/20 02:00 96 27 H 144/94 93 L 11/16/20 01:30 93 27 H 146/93 94 L 11/16/20 01:16 96 25 H 146/93 94 L 11/16/20 01:15 24 11/16/20 01:00 96 18 135/86 94 L 11/16/20 00:30 92 30 H 135/85 95 11/16/20 00:00 98 19 137/88 94 L 11/15/20 23:30 97 19 133/89 95 11/15/20 23:00 95 22 138/82 97 11/15/20 22:58 94 29 H 93 L 11/15/20 20:40 98.3 F 99 20 151/91 95 Intake and Output 11/15/20 11/16/20 11/16/20 22:59 06:59 14:59 Other: Weight 141.521 kg No acute distress, oriented 3. Currently on 2 L nasal cannula. Saturations 98%. HEENT examination is grossly unremarkable. Neck supple. Full range of motion. No adenopathy thyromegaly or neck vein distention. Cardiovascular examination reveals regular rhythm rate. S1-S2 normal. No S3 or S4. No discernible murmur noted. Heart rate 89 bpm. Lungs reveal mostly normal breath sounds. Scattered rhonchi are noted. No wheezes or crackles. Breath sounds equal bilaterally. The patient coughs on deep inspiration. Abdomen soft bowel sounds are heard. No masses or tenderness. Extremities are intact. No cyanosis clubbing or edema. Skin is without rash or lesion. Neurologic examination is brief but nonfocal. Results - Laboratory Findings CBC and BMP: 11/15/20 23:02 11/15/20 23:02 PT/INR, D-dimer PT 10.3 sec (9.0-12.0) 11/15/20 23:02 INR 1.0 (<1.2) 11/15/20 23:02 D-Dimer 0.89 mg/L FEU (<0.60) H 11/15/20 23:02 Abnormal lab findings: Abnormal Labs 11/15/20 11/15/20 11/15/20 23:02 23:02 23:02 Plt Count 135 L D D-Dimer 0.89 H Sodium 136 L BUN 22 H Glucose 132 H Total Protein 6.1 L - Diagnostic Findings Chest x-ray: image reviewed CT scan - chest: image reviewed Assessment and Plan Assessment: Acute coronavirus infection, with mild/moderate hypoxemic respiratory failure secondary to COVID 19 pneumonitis. Acute left-sided pneumothorax and hemoptysis, secondary to paroxysmal episode of harsh coughing. History of gastroesophageal reflux disease. History of pneumonia. History of sleep apnea syndrome. Hypothyroidism. History of panhypopituitarism. Childhood asthma. History of gout. Peripheral vascular occlusive disease. History of cataracts. Multiple other medical problems and comorbidities. Plan: Plan dated 11/16/2020. The patient's pneumothorax is relatively small, and could be followed with serial chest x-rays. The patient should be given vitamin C, vitamin D3, and zinc. In addition, the patient could be given Decadron, 6 mg a day. The patient is outside the window for REM. The patient did receive BAM almost 2 weeks ago. We will continue to follow. Prognosis is guarded. No additional recommendations are made. The patient should also be given Lovenox, 40 mg subcutaneously daily. Time with Patient: Greater than 30
[2020-11-16] MEDS ORDERED: HYDROcodone/APAP 5-325MG 1 EACH TAB PO PRN (14:00)
[2020-11-16] MEDS: ACETAMINOPHEN TAB 325 MG TAB PO PRN (19:45)
[2020-11-16] MEDS: ATORVASTATIN 10 MG TAB PO SCH (19:45)
[2020-11-17] MEDS: ACETAMINOPHEN TAB 325 MG TAB PO PRN ×2 (02:39→11:08)
[2020-11-17] MEDS: LEVOTHYROXINE 112 MCG TAB PO SCH (06:16)
[2020-11-17] MEDS: CHOLECALCIFEROL 25 MCG (1000 IU) TABLET PO SCH (08:35)
[2020-11-17] MEDS: ENOXAPARIN 40 MG/0.4 ML SYRINGE SQ SCH (08:35)
[2020-11-17] MEDS: dexAMETHasone 2 MG TAB PO SCH (08:36)
[2020-11-17] MEDS: ZINC SULFATE 220 MG CAP PO SCH (08:36)
[2020-11-17] MEDS: ASCORBIC ACID 500 MG TAB PO SCH (08:36)
[2020-11-17] MEDS: PANTOPRAZOLE 40 MG TABLET PO SCH (08:36)
--- NOTE | 2020-11-17 09:33 | XR ---
EXAMINATION TYPE: XR chest 1V DATE OF EXAM: 11/17/2020 COMPARISON: Chest x-ray 11/15/[address] 11/17/2019 HISTORY: Covid pneumonia TECHNIQUE: Single frontal view of the chest is obtained. FINDINGS: Bilateral airspace disease shows a similar appearance accounting for differences in techni que. Small left apical pneumothorax persists. Pleural thickening suspected bilaterally. No evident pl eural effusion. Cardiac mediastinal silhouette is stable. IMPRESSION: Correlate for pneumonia. Small left pneumothorax.
--- NOTE | 2020-11-17 11:54 | P.PN ---
Subjective Progress Note Date: 11/17/20 Principal diagnosis: Covid 19 pneumonia Pulmonary consult dated 11/16/2020. 65-year-old male, who presents to the emergency department on November 15, complaining of shortness of breath and coughing up blood. The patient was in the emergency room a couple weeks ago, and received BAM. He actually tested positive for coronavirus back in early October. He was initially feeling okay, has been having symptoms for about 3 weeks. Over the last day or 2, things got worse to his he came into the emergency department. He apparently was cooking some stakes and inhaled some smoke, started developing worsening shortness of breath and cough. That's when he apparently coughed up some blood. He's also complaining of left-sided chest discomfort. The pain is sharp. He denies any fever or chills. He denies any nausea, vomiting, diarrhea, abdominal pain. He denies any genitourinary complaints. 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 The patient also complains of gout, asthma as a child, peripheral vascular occlusive disease, and cataracts. White count 7.5, hemoglobin hematocrit normal. Platelet count 135,000. D-dimer 0.89. Sodium 136, calcium 4.5, chlorides 104, CO2 27, anion gap normal. BUN/creatinine were 22 and 1.04. Chest x-ray shows some patchy bilateral infiltrates, and computed tomography scan showed a small to moderate left-sided pneumothorax, a cavitary area within the superior left lower lobe, patchy airspace disease throughout both lungs bilaterally, and without evidence of pulmonary embolism. Progress note dated 11/17/2020. 65-year-old male who I saw yesterday in consultation. The patient was seen in the emergency department. He came with complaints of shortness of breath, and coughing up blood. He was in the emergency room a couple weeks ago and received BAM. He tested positive for coronavirus back in early October. Currently, the patient's feeling a bit better. He's on 2 L nasal cannula. His chest x-ray did reveal a small left-sided pneumothorax. Chest x-ray revealed bilateral airspace disease, and a small left-sided pneumothorax. Objective - Vital Signs Vital signs: Vital Signs Temp 98.3 F 11/17/20 08:00 Pulse 103 H 11/17/20 08:00 Resp 20 11/17/20 08:00 BP 137/80 11/17/20 08:00 Pulse Ox 94 L 11/17/20 08:00 Intake & Output 11/16/20 11/17/20 11/17/20 18:59 06:59 18:59 Intake Total 240 240 Balance 240 240 Weight 141.521 kg Intake: Oral 240 240 Other: Voiding Method Toilet # Voids 2 - Exam No acute distress, oriented 3. Currently on 2 L nasal cannula. Saturations 94%. HEENT examination is grossly unremarkable. Neck supple. Full range of motion. No adenopathy thyromegaly or neck vein distention. Cardiovascular examination reveals regular rhythm rate. S1-S2 normal. No S3 or S4. No discernible murmur noted. Heart rate 103 bpm. Lungs reveal mostly normal breath sounds. Scattered rhonchi are noted. No wheezes or crackles. Breath sounds equal bilaterally. The patient coughs on deep inspiration. Abdomen soft bowel sounds are heard. No masses or tenderness. Extremities are intact. No cyanosis clubbing or edema. Skin is without rash or lesion. Neurologic examination is brief but nonfocal. - Labs CBC & Chem 7: 11/15/20 23:02 11/15/20 23:02 Assessment and Plan Assessment: Acute coronavirus infection, with mild/moderate hypoxemic respiratory failure secondary to COVID 19 pneumonitis. Acute left-sided pneumothorax and hemoptysis, secondary to paroxysmal episode of harsh coughing. History of gastroesophageal reflux disease. History of pneumonia. History of sleep apnea syndrome. Hypothyroidism. History of panhypopituitarism. Childhood asthma. History of gout. Peripheral vascular occlusive disease. History of cataracts. Multiple other medical problems and comorbidities. Plan: Plan dated 11/16/2020. The patient's pneumothorax is relatively small, and could be followed with serial chest x-rays. The patient should be given vitamin C, vitamin D3, and zinc. In addition, the patient could be given Decadron, 6 mg a day. The patient is outside the window for REM. The patient did receive BAM almost 2 weeks ago. We will continue to follow. Prognosis is guarded. No additional recommendations are made. The patient should also be given Lovenox, 40 mg subcutaneously daily. Progress note dated 11/17/2020. The patient's pneumothorax is relatively small. The patient is outside the window for REM. The patient did receive BAM almost 2 weeks ago. The patient's on vitamins including vitamin C, vitamin D3, and zinc. The patient is also on Lovenox 40 mg subcu daily. We will continue to follow. Daily chest x-ray should be done. We'll observe the pneumothorax. No additional recommendations are made. Prognosis is guarded. Time with Patient: Less than 30
--- NOTE | 2020-11-17 12:57 | P.PN ---
Subjective This is a pleasant 65 years old male with past medical history of gastroesophageal reflux disease, sleep apnea on CPAP/BiPAP, hypothyroidism, chronic back pain, pituitary tumor status post surgery surgical resection. He follows up at the [facility] patient states that he has been tested positive for Jakub for the last 2-3 weeks. Yesterday he was having barbecue and he was doing steaks when there was a lot of smoke and he inhaled smoke followed by vigorous coughing and some bloody sputum. Also after start coughing he feels some left-sided chest pain, sharp, about 3-4/10 in severity got worse with deep breathing Presents because of dyspnea and coughing up blood. He is covid positive he denies a smoking, alcohol or illicit drugs He uses CPAP machine for his sleep apnea but he did not use it last night as he was in the hospital. He is not on home oxygen and he doesn't follow up with balance clerk. He follows up only with the [place] [facility] His vitals are stable and he is saturating 98% on 2 L oxygen via nasal cannula His CBC, BMP, liver enzymes are unremarkable. INR is normal at 1.0, d-dimer slightly elevated at 0.89, Troponin is negative less than 0.012 EKG showing normal sinus rhythm at [address]-T changes and QTC is 431 CTA of the chest showing no pulmonary embolism, 3 cm heterogenous cavity area within the superior left lower lobe. Adjacent pneumothorax within the fissure. Recommend follow-up. Patchy airspace disease scattered throughout the lungs bilaterally with somewhat peripheral predominance may reflect infectious/inflammatory process. Small to moderate left pneumothorax Pulmonary team were consulted from emergency room 11/17/2020 Patient still coming from some dyspnea and also chest pain about 4/10, he did not sleep from his chest pain last night it was 8/10 and improved with Tylenol. Is still leads a total of oxygen to keep his saturation and low 90s: Chest x-ray today showing worsening infiltration on both sides He remains on multiple vitamins, C,D and zinc. Also is on dexamethasone Pneumothorax is stable on the small. Review of Systems CONSTITUTIONAL: No fever, no malaise, no fatigue. HEENT: No recent visual problems or hearing problems. Denied any sore throat. CARDIOVASCULAR: No orthopnea, PND, no palpitations, no syncope. PULMONARY: No chest wall tenderness, no hemoptysis. GASTROINTESTINAL: No diarrhea, no nausea, no vomiting, no Active Medications Generic Name Dose Route Start Last Admin Trade Name Freq PRN Reason Stop Dose Admin Acetaminophen 650 mg 11/16/20 03:09 11/17/20 11:08 Acetaminophen Tab 325 Mg Tab PO 650 mg Q6HR PRN Administration Mild Pain or Fever > 100.5 Hydrocodone Bitart/Acetaminophen 1 each 11/16/20 14:00 Hydrocodone/Apap 5-325mg 1 Each Tab PO Q6HR PRN Pain Ascorbic Acid 1,000 mg 11/17/20 09:00 11/17/20 08:36 Ascorbic Acid 500 Mg Tab PO 1,000 mg DAILY ROMAIN Administration Atorvastatin Calcium 10 mg 11/16/20 21:00 11/16/20 19:45 Atorvastatin 10 Mg Tab PO 10 mg HS ROMAIN Administration Cholecalciferol 100 mcg 11/17/20 07:00 11/17/20 08:35 Cholecalciferol 25 Mcg (1000 Iu) Tablet PO 100 mcg DAILY@0700 ROMAIN Administration Dexamethasone 6 mg 11/17/20 09:00 11/17/20 08:36 Dexamethasone 2 Mg Tab PO 6 mg DAILY ROMAIN Administration Enoxaparin Sodium 40 mg 11/17/20 09:00 11/17/20 08:35 Enoxaparin 40 Mg/0.4 Ml Syringe SQ 40 mg DAILY ROMAIN Administration Levothyroxine Sodium 112 mcg 11/16/20 06:30 11/17/20 06:16 Levothyroxine 112 Mcg Tab PO 112 mcg DAILY@0630 ROMAIN Administration Naloxone HCl 0.2 mg 11/16/20 03:09 Naloxone 0.4 Mg/Ml 1 Ml Vial IV Q2M PRN Opioid Reversal Ondansetron HCl 4 mg 11/16/20 03:09 Ondansetron 4 Mg/2 Ml Vial IVP Q8HR PRN Nausea And Vomiting Pantoprazole Sodium 40 mg 11/17/20 07:00 11/17/20 08:36 Pantoprazole 40 Mg Tablet PO 40 mg DAILY@0700 ROMAIN Administration Zinc Sulfate 220 mg 11/17/20 09:00 11/17/20 08:36 Zinc Sulfate 220 Mg Cap PO 220 mg DAILY ROMAIN Administration Objective - Vital Signs Vital signs: Vital Signs Temp 99.3 F 11/17/20 12:24 Pulse 103 H 11/17/20 12:24 Resp 20 11/17/20 12:24 BP 143/82 11/17/20 12:24 Pulse Ox 90 L 11/17/20 12:24 Intake & Output 11/16/20 11/17/20 11/17/20 18:59 06:59 18:59 Intake Total 240 240 Balance 240 240 Weight 141.521 kg Intake: Oral 240 240 Other: Voiding Method Toilet # Voids 2 - Exam GENERAL: The patient is alert and oriented x3, not in any acute distress. Well developed, well nourished. HEENT: Pupils are round and equally reacting to light. EOMI. No scleral icterus. No conjunctival pallor. Normocephalic, atraumatic. No pharyngeal erythema. No thyromegaly. CARDIOVASCULAR: S1 and S2 present. No murmurs, rubs, or gallops. PULMONARY: Chest is clear to auscultation, no wheezing or crackles. ABDOMEN: Soft, nontender, nondistended, normoactive bowel sounds. No palpable organomegaly. MUSCULOSKELETAL: No joint swelling or deformity. EXTREMITIES: No cyanosis, clubbing, or pedal edema. NEUROLOGICAL: Gross neurological examination did not reveal any focal deficits. SKIN: No rashes. no petechiae. - Labs CBC & Chem 7: 11/15/20 23:02 11/15/20 23:02 Assessment and Plan Assessment: Left small to moderate pneumothorax Bilateral interstitial infiltrates secondary to covid pneumonia Acute hypoxic respiratory failure Increase inflammatory markers Hypothyroidism Osteoarthritis History of GERD History of sleep apnea History of Gout Chronic back pain Plan: This is a pleasant 65 years old male who presents with bilateral Covid pneumonia and left pneumothorax continue with supportive management and follow up closely. Pulmonary consult Labs and medication were reviewed.. Continue same treatment. Continue with symptomatic treatment. Resume home medication. Monitor lytes and vitals. DVT and GI prophylaxis. Further recommendations depends on the clinical course of the patient DVT prophylaxis: Subcutaneous heparin GI Prophylaxis: Pepcid PT/OT: Pending Prognosis is guarded
[2020-11-17] MEDS: ATORVASTATIN 10 MG TAB PO SCH (20:33)
[2020-11-18] MEDS: LEVOTHYROXINE 112 MCG TAB PO SCH (06:24)
--- NOTE | 2020-11-18 08:12 | XR ---
EXAMINATION TYPE: XR chest 1V DATE OF EXAM: 11/18/2020 COMPARISON: Chest x-ray 11/17/2020 HISTORY: Covid pneumonia, pneumothorax, hemoptysis and chest pain TECHNIQUE: Single frontal view of the chest is obtained. FINDINGS: Minimal left apical pneumothorax is again noted. Bilateral airspace disease shows a simila r appearance. No evident effusion. Cardiac mediastinal silhouette is stable. IMPRESSION: Findings are similar, correlate for pneumonia, minimal left sided pneumothorax persists
[2020-11-18] MEDS: ENOXAPARIN 40 MG/0.4 ML SYRINGE SQ SCH (08:17)
[2020-11-18] MEDS: CHOLECALCIFEROL 25 MCG (1000 IU) TABLET PO SCH (08:17)
[2020-11-18] MEDS: PANTOPRAZOLE 40 MG TABLET PO SCH (08:18)
[2020-11-18] MEDS: ASCORBIC ACID 500 MG TAB PO SCH (08:18)
[2020-11-18] MEDS: dexAMETHasone 2 MG TAB PO SCH (08:18)
[2020-11-18] MEDS: ZINC SULFATE 220 MG CAP PO SCH (08:18)
[2020-11-18 08:46] LABS: African American GFR (CKD) >90 (>60 ml/min/1.73 sqM); Anion Gap 6 mmol/L; Blood Urea Nitrogen 17 mg/dL (9-20); C Reactive Protein 4.4 mg/dL (<1.0); Calcium 9.1 mg/dL (8.4-10.2); Carbon Dioxide 28 mmol/L (22-30); Chloride 100 mmol/L (98-107); Glucose 157 mg/dL (74-99); LDH 677 U/L (313-618); Magnesium 2.1 mg/dL (1.6-2.3); Non-African American GFR(CKD) >90 (>60 ml/min/1.73 sqM); Potassium 4.7 mmol/L (3.5-5.1); Sodium 134 mmol/L (137-145)
[2020-11-18 13:00] VITALS: RESP 16
--- NOTE | 2020-11-18 13:00 | P.PN ---
Subjective Progress Note Date: 11/18/20 Principal diagnosis: Covid 19 pneumonia Pulmonary consult dated 11/16/2020. 65-year-old male, who presents to the emergency department on November 15, complaining of shortness of breath and coughing up blood. The patient was in the emergency room a couple weeks ago, and received BAM. He actually tested positive for coronavirus back in early October. He was initially feeling okay, has been having symptoms for about 3 weeks. Over the last day or 2, things got worse to his he came into the emergency department. He apparently was cooking some stakes and inhaled some smoke, started developing worsening shortness of breath and cough. That's when he apparently coughed up some blood. He's also complaining of left-sided chest discomfort. The pain is sharp. He denies any fever or chills. He denies any nausea, vomiting, diarrhea, abdominal pain. He denies any genitourinary complaints. 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 The patient also complains of gout, asthma as a child, peripheral vascular occlusive disease, and cataracts. White count 7.5, hemoglobin hematocrit normal. Platelet count 135,000. D-dimer 0.89. Sodium 136, calcium 4.5, chlorides 104, CO2 27, anion gap normal. BUN/creatinine were 22 and 1.04. Chest x-ray shows some patchy bilateral infiltrates, and computed tomography scan showed a small to moderate left-sided pneumothorax, a cavitary area within the superior left lower lobe, patchy airspace disease throughout both lungs bilaterally, and without evidence of pulmonary embolism. Progress note dated 11/17/2020. 65-year-old male who I saw yesterday in consultation. The patient was seen in the emergency department. He came with complaints of shortness of breath, and coughing up blood. He was in the emergency room a couple weeks ago and received BAM. He tested positive for coronavirus back in early October. Currently, the patient's feeling a bit better. He's on 2 L nasal cannula. His chest x-ray did reveal a small left-sided pneumothorax. Chest x-ray revealed bilateral airspace disease, and a small left-sided pneumothorax. Progress note dated 11/18/2020. 65-year-old male, seen in consultation couple days ago. The patient was admitted with a diagnosis of coronavirus. The patient tested positive back in early October. The patient did receive BAM a couple weeks back. Also, the patient sustained a small left sided pneumothorax, because he was coughing aggressively. Currently, the patient's doing well. He is on room air. He's not receiving any IV fluids. His chest pain is much improved. He denies any fever or chills. He denies chest pain or chest discomfort. There is no nausea, vomiting, or diarrhea. D-dimer is 0.96. Sodium 134, potassium 4.7, chlorides 100, CO2 28, anion gap 6, BUN 17, and creatinine 0.8. LDH is 677 and C-reactive protein is 4.4. Chest x-ray is essentially unchanged, and the patient still has a persistent small left-sided pneumothorax. It also reveals bilateral airspace disease. Objective - Vital Signs Vital signs: Vital Signs Temp 97.7 F 11/18/20 08:00 Pulse 82 11/18/20 04:52 Resp 18 11/18/20 04:52 BP 133/82 11/18/20 08:00 Pulse Ox 94 L 11/18/20 08:00 Intake & Output 11/17/20 11/18/20 11/18/20 18:59 06:59 18:59 Intake Total 480 Balance 480 Intake: Oral 480 Other: Voiding Method Toilet # Voids 4 2 - Exam No acute distress, oriented 3. Currently on room air.. Saturations 94%. HEENT examination is grossly unremarkable. Neck supple. Full range of motion. No adenopathy thyromegaly or neck vein distention. Cardiovascular examination reveals regular rhythm rate. S1-S2 normal. No S3 or S4. No discernible murmur noted. Heart rate 82 bpm. Lungs reveal mostly normal breath sounds. Scattered rhonchi are noted. No wheezes or crackles. Breath sounds equal bilaterally. The patient coughs on deep inspiration. Abdomen soft bowel sounds are heard. No masses or tenderness. Extremities are intact. No cyanosis clubbing or edema. Skin is without rash or lesion. Neurologic examination is brief but nonfocal. - Labs CBC & Chem 7: 11/15/20 23:02 11/18/20 07:15 Labs: Abnormal Lab Results - Last 24 Hours (Table) 11/18/20 11/18/20 Range/Units 07:15 07:15 D-Dimer 0.96 H (<0.60) mg/L FEU Sodium 134 L (137-145) mmol/L Glucose 157 H (74-99) mg/dL Lactate Dehydrogenase 677 H (313-618) U/L C-Reactive Protein 4.4 H (<1.0) mg/dL Assessment and Plan Assessment: Acute coronavirus infection, with mild/moderate hypoxemic respiratory failure secondary to COVID 19 pneumonitis. Acute small left-sided pneumothorax and hemoptysis, secondary to paroxysmal episode of harsh coughing. History of gastroesophageal reflux disease. History of pneumonia. History of sleep apnea syndrome. Hypothyroidism. History of panhypopituitarism. Childhood asthma. History of gout. Peripheral vascular occlusive disease. History of cataracts. Multiple other medical problems and comorbidities. Plan: Plan dated 11/16/2020. The patient's pneumothorax is relatively small, and could be followed with serial chest x-rays. The patient should be given vitamin C, vitamin D3, and zinc. In addition, the patient could be given Decadron, 6 mg a day. The patient is outside the window for REM. The patient did receive BAM almost 2 weeks ago. We will continue to follow. Prognosis is guarded. No additional recommendations are made. The patient should also be given Lovenox, 40 mg subcutaneously daily. Progress note dated 11/17/2020. The patient's pneumothorax is relatively small. The patient is outside the window for REM. The patient did receive BAM almost 2 weeks ago. The patient's on vitamins including vitamin C, vitamin D3, and zinc. The patient is also on Lovenox 40 mg subcu daily. We will continue to follow. Daily chest x-ray should be done. We'll observe the pneumothorax. No additional recommendations are made. Prognosis is guarded. Progress note dated 11/18/2020. The patient's chest x-ray today is essentially unchanged. Labs are reviewed. The patient is outside the window for REM. He did receive BAM about 2 weeks ago. The patient remains on admit see, vitamin D3, and zinc. The patient is also on Lovenox. We will continue to follow. The patient also continues on Decadron. He likely could be discharged home tomorrow. He should have follow up with us in the office for follow-up chest x-rays. Time with Patient: Less than 30
[2020-11-18] MEDS: ATORVASTATIN 10 MG TAB PO SCH (19:31)
--- NOTE | 2020-11-18 19:51 | P.PN ---
Subjective This is a pleasant 65 years old male with past medical history of gastroesophageal reflux disease, sleep apnea on CPAP/BiPAP, hypothyroidism, chronic back pain, pituitary tumor status post surgery surgical resection. He follows up at the [facility] patient states that he has been tested positive for Jakub for the last 2-3 weeks. Yesterday he was having barbecue and he was doing steaks when there was a lot of smoke and he inhaled smoke followed by vigorous coughing and some bloody sputum. Also after start coughing he feels some left-sided chest pain, sharp, about 3-4/10 in severity got worse with deep breathing Presents because of dyspnea and coughing up blood. He is covid positive he denies a smoking, alcohol or illicit drugs He uses CPAP machine for his sleep apnea but he did not use it last night as he was in the hospital. He is not on home oxygen and he doesn't follow up with radiation oncologist. He follows up only with the [facility] clinic His vitals are stable and he is saturating 98% on 2 L oxygen via nasal cannula His CBC, BMP, liver enzymes are unremarkable. INR is normal at 1.0, d-dimer slightly elevated at 0.89, Troponin is negative less than 0.012 EKG showing normal sinus rhythm at [address]-T changes and QTC is 431 CTA of the chest showing no pulmonary embolism, 3 cm heterogenous cavity area within the superior left lower lobe. Adjacent pneumothorax within the fissure. Recommend follow-up. Patchy airspace disease scattered throughout the lungs bilaterally with somewhat peripheral predominance may reflect infectious/inflammatory process. Small to moderate left pneumothorax Pulmonary team were consulted from emergency room 11/17/2020 Patient still coming from some dyspnea and also chest pain about 4/10, he did not sleep from his chest pain last night it was 8/10 and improved with Tylenol. Is still leads a total of oxygen to keep his saturation and low 90s: Chest x-ray today showing worsening infiltration on both sides He remains on multiple vitamins, C,D and zinc. Also is on dexamethasone Pneumothorax is stable on the small. 11/18/2020 Patient was comfortable today, no respiratory distress at [place], no respiratory symptoms. Patient claims that he had a bout of coughing last night followed by resolution of his chest pain or dyspnea and he thinks today is back to close to his normal state. No other new complaints. Chest x-ray: Findings are similar, correlated for pneumonia, minimal left-sided pneumothorax persist labs basically are the same, including d-dimer level of 0.9 compared to 0.89 yesterday. Remains on dexamethasone and multiple vitamin for his Covid pneumonia. 1 more day of monitoring per pulmonary team. Repeat chest x-ray tomorrow morning We'll keep monitoring Objective - Vital Signs Vital signs: Vital Signs Temp 98 F 11/18/20 16:00 Pulse 72 11/18/20 16:00 Resp 16 11/18/20 16:00 BP 132/74 11/18/20 16:00 Pulse Ox 93 L 11/18/20 12:00 Intake & Output 11/18/20 11/18/20 11/19/20 06:59 18:59 06:59 Intake Total 480 Balance 480 Intake: Oral 480 Other: Voiding Method Toilet # Voids 2 4 - Exam GENERAL: The patient is alert and oriented x3, not in any acute distress. Well developed, well nourished. HEENT: Pupils are round and equally reacting to light. EOMI. No scleral icterus. No conjunctival pallor. Normocephalic, atraumatic. No pharyngeal erythema. No thyromegaly. CARDIOVASCULAR: S1 and S2 present. No murmurs, rubs, or gallops. PULMONARY: Chest is clear to auscultation, no wheezing or crackles. ABDOMEN: Soft, nontender, nondistended, normoactive bowel sounds. No palpable or ganomegaly. MUSCULOSKELETAL: No joint swelling or deformity. EXTREMITIES: No cyanosis, clubbing, or pedal edema. NEUROLOGICAL: Gross neurological examination did not reveal any focal deficits. SKIN: No rashes. no petechiae. - Labs CBC & Chem 7: 11/15/20 23:02 11/18/20 07:15 Labs: Abnormal Lab Results - Last 24 Hours (Table) 11/18/20 11/18/20 Range/Units 07:15 07:15 D-Dimer 0.96 H (<0.60) mg/L FEU Sodium 134 L (137-145) mmol/L Glucose 157 H (74-99) mg/dL Lactate Dehydrogenase 677 H (313-618) U/L C-Reactive Protein 4.4 H (<1.0) mg/dL Assessment and Plan Assessment: Left small to moderate pneumothorax Bilateral interstitial infiltrates secondary to covid pneumonia Acute hypoxic respiratory failure Increase inflammatory markers Hypothyroidism Osteoarthritis History of GERD History of sleep apnea History of Gout Chronic back pain Plan: This is a pleasant 65 years old male who presents with bilateral Covid pneumonia and left pneumothorax continue with supportive management and follow up closely. Pulmonary consult Labs and medication were reviewed.. Continue same treatment. Continue with symptomatic treatment. Resume home medication. Monitor lytes and vitals. DVT and GI prophylaxis. Further recommendations depends on the clinical course of the patient DVT prophylaxis: Subcutaneous heparin GI Prophylaxis: Pepcid PT/OT: Pending Prognosis is guarded
[2020-11-19] MEDS: LEVOTHYROXINE 112 MCG TAB PO SCH (05:56)
[2020-11-19] MEDS: ASCORBIC ACID 500 MG TAB PO SCH (08:19)
[2020-11-19] MEDS: dexAMETHasone 2 MG TAB PO SCH (08:20)
[2020-11-19] MEDS: ENOXAPARIN 40 MG/0.4 ML SYRINGE SQ SCH (08:20)
[2020-11-19] MEDS: PANTOPRAZOLE 40 MG TABLET PO SCH (08:20)
[2020-11-19] MEDS: CHOLECALCIFEROL 25 MCG (1000 IU) TABLET PO SCH (08:20)
[2020-11-19] MEDS: ZINC SULFATE 220 MG CAP PO SCH (08:20)
--- NOTE | 2020-11-19 09:24 | XR ---
EXAMINATION TYPE: XR chest 1V DATE OF EXAM: 11/19/2020 COMPARISON: Chest x-ray 11/18/2020 HISTORY: Abnormal chest x-ray, pneumothorax TECHNIQUE: Single frontal view of the chest is obtained. FINDINGS: Bilateral airspace disease is again seen. No evident pleural effusion. Patient is rotated. Apical pneumothorax is no longer seen on the left. Cardiac mediastinal silhouette is stable. IMPRESSION: Correlate for pneumonia.
--- NOTE | 2020-11-19 11:33 | P.PN ---
Subjective Progress Note Date: 11/19/20 Principal diagnosis: Covid 19 pneumonia Pulmonary consult dated 11/16/2020. 65-year-old male, who presents to the emergency department on November 15, complaining of shortness of breath and coughing up blood. The patient was in the emergency room a couple weeks ago, and received BAM. He actually tested positive for coronavirus back in early October. He was initially feeling okay, has been having symptoms for about 3 weeks. Over the last day or 2, things got worse to his he came into the emergency department. He apparently was cooking some stakes and inhaled some smoke, started developing worsening shortness of breath and cough. That's when he apparently coughed up some blood. He's also complaining of left-sided chest discomfort. The pain is sharp. He denies any fever or chills. He denies any nausea, vomiting, diarrhea, abdominal pain. He denies any genitourinary complaints. 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 The patient also complains of gout, asthma as a child, peripheral vascular occlusive disease, and cataracts. White count 7.5, hemoglobin hematocrit normal. Platelet count 135,000. D-dimer 0.89. Sodium 136, calcium 4.5, chlorides 104, CO2 27, anion gap normal. BUN/creatinine were 22 and 1.04. Chest x-ray shows some patchy bilateral infiltrates, and computed tomography scan showed a small to moderate left-sided pneumothorax, a cavitary area within the superior left lower lobe, patchy airspace disease throughout both lungs bilaterally, and without evidence of pulmonary embolism. Progress note dated 11/17/2020. 65-year-old male who I saw yesterday in consultation. The patient was seen in the emergency department. He came with complaints of shortness of breath, and coughing up blood. He was in the emergency room a couple weeks ago and received BAM. He tested positive for coronavirus back in early October. Currently, the patient's feeling a bit better. He's on 2 L nasal cannula. His chest x-ray did reveal a small left-sided pneumothorax. Chest x-ray revealed bilateral airspace disease, and a small left-sided pneumothorax. Progress note dated 11/18/2020. 65-year-old male, seen in consultation couple days ago. The patient was admitted with a diagnosis of coronavirus. The patient tested positive back in early October. The patient did receive BAM a couple weeks back. Also, the patient sustained a small left sided pneumothorax, because he was coughing aggressively. Currently, the patient's doing well. He is on room air. He's not receiving any IV fluids. His chest pain is much improved. He denies any fever or chills. He denies chest pain or chest discomfort. There is no nausea, vomiting, or diarrhea. D-dimer is 0.96. Sodium 134, potassium 4.7, chlorides 100, CO2 28, anion gap 6, BUN 17, and creatinine 0.8. LDH is 677 and C-reactive protein is 4.4. Chest x-ray is essentially unchanged, and the patient still has a persistent small left-sided pneumothorax. It also reveals bilateral airspace disease. Progress note dated 11/19/2020. 65-year-old male, seen today on November 19. The patient's in the observation unit, room 151. Currently, the patient is not receiving any supplemental oxygen, or IV fluids. In addition, the chest x-ray fails to reveal a pneumothorax. The patient feels much improved. Still shortness of breath with exertion. Chest x-ray does show bilateral infiltrates. No new labs today. Chest x-ray is reviewed. Objective - Vital Signs Vital signs: Vital Signs Temp 97.5 F L 11/19/20 08:00 Pulse 73 11/19/20 08:00 Resp 16 11/19/20 08:00 BP 123/72 11/19/20 08:00 Pulse Ox 92 L 11/19/20 08:00 Intake & Output 11/18/20 11/19/20 11/19/20 18:59 06:59 18:59 Intake Total 840 Balance 840 Intake: Oral 840 Other: Voiding Method Toilet Toilet Toilet # Voids 4 2 - Exam No acute distress, oriented 3. Currently on room air.. Saturations 92%. HEENT examination is grossly unremarkable. Neck supple. Full range of motion. No adenopathy thyromegaly or neck vein distention. Cardiovascular examination reveals regular rhythm rate. S1-S2 normal. No S3 or S4. No discernible murmur noted. Heart rate 73 bpm. Lungs reveal mostly normal breath sounds. Scattered rhonchi are noted. No wheezes or crackles. Breath sounds equal bilaterally. The patient coughs on deep inspiration. Abdomen soft bowel sounds are heard. No masses or tenderness. Extremities are intact. No cyanosis clubbing or edema. Skin is without rash or lesion. Neurologic examination is brief but nonfocal. - Labs CBC & Chem 7: 11/15/20 23:02 11/18/20 07:15 Assessment and Plan Assessment: Acute coronavirus infection, with mild/moderate hypoxemic respiratory failure secondary to COVID 19 pneumonitis. Acute small left-sided pneumothorax and hemoptysis, secondary to paroxysmal episode of harsh coughing. History of gastroesophageal reflux disease. History of pneumonia. History of sleep apnea syndrome. Hypothyroidism. History of panhypopituitarism. Childhood asthma. History of gout. Peripheral vascular occlusive disease. History of cataracts. Multiple other medical problems and comorbidities. Plan: Plan dated 11/16/2020. The patient's pneumothorax is relatively small, and could be followed with ser ial chest x-rays. The patient should be given vitamin C, vitamin D3, and zinc. In addition, the patient could be given Decadron, 6 mg a day. The patient is outside the window for REM. The patient did receive BAM almost 2 weeks ago. We will continue to follow. Prognosis is guarded. No additional recommendations are made. The patient should also be given Lovenox, 40 mg subcutaneously daily. Progress note dated 11/17/2020. The patient's pneumothorax is relatively small. The patient is outside the window for REM. The patient did receive BAM almost 2 weeks ago. The patient's on vitamins including vitamin C, vitamin D3, and zinc. The patient is also on Lovenox 40 mg subcu daily. We will continue to follow. Daily chest x-ray should be done. We'll observe the pneumothorax. No additional recommendations are made. Prognosis is guarded. Progress note dated 11/18/2020. The patient's chest x-ray today is essentially unchanged. Labs are reviewed. The patient is outside the window for REM. He did receive BAM about 2 weeks ago. The patient remains on admit see, vitamin D3, and zinc. The patient is also on Lovenox. We will continue to follow. The patient also continues on Decadron. He likely could be discharged home tomorrow. He should have follow up with us in the office for follow-up chest x-rays. Progress note dated 11/19/2020. The patient chest x-ray today does not reveal any pneumothorax. The patient is feeling much improved. The patient will need follow-up with us in the office once he is discharged. I'm not sure if the hospitalist services discharging him today. The patient clearly has COVID 19 pneumonia. The patient's chest x-ray does show bilateral infiltrates. He does get short of breath on exertion. Time with Patient: Less than 30
[2020-11-19 12:31] VITALS: BP 141/80; PULSE 60; TEMP 96.3
== END 2020-11-19 15:45 | disposition home or self-care (01) | DRG 177 ==
LOC: EC 20:28 → 4SSUR 11-16 05:31 → 1SOBS 11-16 14:09
PROVIDERS: ADMIT Hospitalist; ATTEND Hospitalist
DX: U07.1 COVID-19 (principal); J12.82 Pneumonia due to coronavirus disease 2019; J96.01 Acute respiratory failure with hypoxia; J93.9 Pneumothorax, unspecified; R04.2 Hemoptysis; M19.90 Unspecified osteoarthritis, unspecified site; E03.9 Hypothyroidism, unspecified; G89.29 Other chronic pain; G47.30 Sleep apnea, unspecified; N42.9 Disorder of prostate, unspecified; R41.3 Other amnesia; M10.9 Gout, unspecified; I73.9 Peripheral vascular disease, unspecified; E89.3 Postprocedural hypopituitarism; H26.9 Unspecified cataract; M54.9 Dorsalgia, unspecified; Z99.89 Dependence on other enabling machines and devices; Z79.82 Long term (current) use of aspirin; Z79.890 Hormone replacement therapy; Z79.899 Other long term (current) drug therapy; Z82.49 Family history of ischemic heart disease and other diseases of the circulatory system; Z87.01 Personal history of pneumonia (recurrent); Z87.09 Personal history of other diseases of the respiratory system; Z87.891 Personal history of nicotine dependence; Z83.2 Family history of diseases of the blood and blood-forming organs and certain disorders involving the immune mechanism; Z88.5 Allergy status to narcotic agent
CPT/HCPCS: 36415; 71045; 71046; 71275; 80048; 80053; 83605; 83615; 83735; 84484; 85025; 85379; 85610; 85730; 86140; 93005; 99285

== ENCOUNTER 2020-12-24 09:53 | Emergency (ER) | payer MEDICARE, OTHER ==
--- NOTE | 2020-12-24 10:45 | ED ---
General Adult HPI <Miguelangel Pierre - Last Filed: 12/24/20 13:10> - General Source: patient Mode of arrival: ambulatory Limitations: no limitations <Raul Zuniga - Last Filed: 12/24/20 13:37> - General Chief complaint: Shortness of Breath Stated complaint: Diff Breathing Time Seen by Provider: 12/24/20 10:05 - History of Present Illness Initial comments: 65-year-old male with a past medical history of GERD, pneumonia, thyroid disorder presents to the emergency room for shortness of breath. Patient reports that he has had short suppressants he was diagnosed with cold that the beginning of October. States that at time he was found have a "hole" in his lung. Patient states the past 2 days the shortness of breath has been a little worse. States he feels gurgling in his left lung area. Patient has an appointment with pulmonology within the next week for these symptoms.Patient has no other co mplaints at this time including abdominal pain, nausea or vomiting, headache, or visual changes. (Raul Zuniga) - Related Data Home Medications Medication Instructions Recorded Confirmed Aspirin 325 mg PO DAILY@0700 09/04/16 12/24/20 Levothyroxine Sodium [Synthroid] 112 mcg PO DAILY@0600 09/04/16 12/24/20 Testosterone Cypionate 200 mg IM Q14D 09/04/16 12/24/20 [Depo-Testosterone] Atorvastatin [Lipitor] 10 mg PO HS 11/16/20 12/24/20 Furosemide [Lasix] 40 mg PO DAILY@0600 11/16/20 12/24/20 Hydrocortisone [Cortef] 20 mg PO BID@0700,1500 11/16/20 12/24/20 Omeprazole 20 mg PO DAILY@0700 11/16/20 12/24/20 Cholecalciferol [Vitamin D3 (25 25 mcg PO DAILY 12/24/20 12/24/20 Mcg = 1000 Iu)] Multivitamins, Thera [Multivitamin 1 tab PO DAILY 12/24/20 12/24/20 (formulary)] Potassium Chloride 8 meq PO DAILY 12/24/20 12/24/20 Sildenafil Citrate [Viagra] 50 mg PO DAILY PRN 12/24/20 12/24/20 Previous Rx's Medication Instructions Recorded Acetaminophen Tab [Tylenol] 650 mg PO Q6HR PRN tab 11/19/20 Ascorbic Acid [Vitamin C] 1,000 mg PO DAILY #60 tab 11/19/20 Zinc Sulfate [Orazinc] 220 mg PO DAILY #30 cap 11/19/20 Allergies Allergy/AdvReac Type Severity Reaction Status Date / Time codeine Allergy Unknown Verified 12/24/20 12:12 morphine Allergy Unknown Verified 12/24/20 12:12 Review of Systems ROS Other: All systems not noted in ROS Statement are negative. <Miguelangel Pierre - Last Filed: 12/24/20 13:10> ROS Other: All systems not noted in ROS Statement are negative. <Ralu Zuniga - Last Filed: 12/24/20 13:37> ROS Statement: Those systems with pertinent positive or pertinent negative responses have been documented in the HPI. 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 History of Any Multi-Drug Resistant Organisms: None Reported Past Surgical History: Hernia Repair Additional Past Surgical History / Comment(s): sx to removed pituitary tumor-it grew back and in 1999 had it removed again,also had gamma knife radiation tx, deviated septum repair, jaw sx-removed benign tumor, metal removed from rt eye, colonoscopy/polypectomt(benign), 2001,"MESH SURGERY ON STOMACH- HERNIA" Past Anesthesia/Blood Transfusion Reactions: Postoperative Nausea & Vomiting (PONV) Additional Past Anesthesia/Blood Transfusion Reaction / Comment(s): "sensative to opiod based narcotics" never received any blood. Past Psychological History: No Psychological Hx Reported Smoking Status: Never smoker Past Alcohol Use History: None Reported Past Drug Use History: None Reported - Past Family History Mother Family Medical History: Hypertension, Myocardial Infarction (ID) Additional Family Medical History / Comment(s): 13 people on mom's side of family from [place] Father Family Medical History: Myocardial Infarction (ID) Additional Family Medical History / Comment(s): grandfather cad, from blood clot <NadiaRaul gould Rashaun - Last Filed: 12/24/20 13:37> General Exam Limitations: no limitations General appearance: alert, in no apparent distress Head exam: Present: atraumatic, normocephalic, normal inspection Eye exam: Present: normal appearance, PERRL, EOMI. Absent: scleral icterus, conjunctival injection, periorbital swelling ENT exam: Present: normal exam, mucous membranes moist Neck exam: Present: normal inspection. Absent: tenderness, meningismus, lymphadenopathy Respiratory exam: Present: rales (Rales noted left lung). Absent: respiratory distress, wheezes, rhonchi, stridor Cardiovascular Exam: Present: regular rate, normal rhythm, normal heart sounds. Absent: systolic murmur, diastolic murmur, rubs, gallop, clicks GI/Abdominal exam: Present: soft, normal bowel sounds. Absent: distended, tenderness, guarding, rebound, rigid Neurological exam: Present: alert <Raul Zuniga - Last Filed: 12/24/20 13:37> Course <Miguelangel Pierre - Last Filed: 12/24/20 13:10> Vital Signs 12/24/20 12/24/20 12/24/20 09:57 10:18 11:00 Temperature 98.3 F Pulse Rate 64 Respiratory 18 18 18 Rate Blood Pressure 163/94 141/90 O2 Sat by Pulse 99 97 Oximetry 12/24/20 11:30 Temperature Pulse Rate 83 Respiratory 20 Rate Blood Pressure 119/72 O2 Sat by Pulse 97 Oximetry - Reevaluation(s) Reevaluation #1: 12/24/20 13:11 PA supervision: I proceeded [id number] evaluation the patient. He did present with complaints of shortness of breath. He had a recent cold but 19 pneumonia thorax. He believes he may have had something with the weather change today. He is a former smoker he quit 30 years ago. This time imaging shows no acute findings. He is a candidate for outpatient treatment he'll be given an incentive spirometer and albuterol inhaler. He is to keep his follow-up with pulmonology next week. At my exam lung sounds are good except for some crepitus in the bases which is seemingly improve with deep breathing. (Miguelangel Pierre) EKG Findings - EKG Comments: EKG Findings:: Normal sinus rhythm, ventricular rate 67, ID interval 186, QTC 445 <Raul Zuniga - Last Filed: 12/24/20 13:37> Medical Decision Making - Lab Data Result diagrams: 12/24/20 10:38 12/24/20 10:38 <Miguelangel Pierre - Last Filed: 12/24/20 13:10> - Lab Data Result diagrams: 12/24/20 10:38 12/24/20 10:38 <Raul Zuniga - Last Filed: 12/24/20 13:37> - Medical Decision Making Vitals are stable. Patient is well-appearing. No respiratory distress. He did have some crackles in the base of the left lung but otherwise nor story findings or distress. CBC CMP unremarkable. Troponin negative. EKG nonischemic. I did review previous chest CT from October which did show a pneumothorax and a cavitary lesion associated with coronavirus. Therefore I repeated a CAT scan today which showed no evidence of PE. The infiltrates were much improved. Patient should follow-up with nodular density. At this time patient has secured good outpatient follow-up and will be seeing the coating technician on . Given symptoms been stable for over a month we will discharge him home. He should return here for any worsening symptoms. (Raul Zuniga) - Lab Data Lab Results 12/24/20 12/24/20 12/24/20 Range/Units 10:38 10:38 10:38 WBC 6.1 (3.8-10.6) k/uL RBC 4.09 L (4.30-5.90) m/uL Hgb 13.5 (13.0-17.5) gm/dL Hct 37.5 L (39.0-53.0) % MCV 91.7 (80.0-100.0) fL MCH 33.0 (25.0-35.0) pg MCHC 36.0 (31.0-37.0) g/dL RDW 13.1 (11.5-15.5) % Plt Count 189 (150-450) k/uL MPV 6.6 Neutrophils % 66 % Lymphocytes % 22 % Monocytes % 7 % Eosinophils % 3 % Basophils % 1 % Neutrophils # 4.0 (1.3-7.7) k/uL Lymphocytes # 1.3 (1.0-4.8) k/uL Monocytes # 0.4 (0-1.0) k/uL Eosinophils # 0.2 (0-0.7) k/uL Basophils # 0.0 (0-0.2) k/uL PT 10.4 (9.0-12.0) sec INR 1.0 (<1.2) APTT 22.8 (22.0-30.0) sec Sodium 139 (137-145) mmol/L Potassium 4.1 (3.5-5.1) mmol/L Chloride 107 (98-107) mmol/L Carbon Dioxide 28 (22-30) mmol/L Anion Gap 4 mmol/L BUN 12 (9-20) mg/dL Creatinine 0.88 (0.66-1.25) mg/dL Est GFR (CKD-EPI)AfAm >90 (>60 ml/min/1.73 sqM) Est GFR (CKD-EPI)NonAf >90 (>60 ml/min/1.73 sqM) Glucose 103 H (74-99) mg/dL Plasma Lactic Acid Too (0.7-2.0) mmol/L Calcium 9.2 (8.4-10.2) mg/dL Total Bilirubin 0.5 (0.2-1.3) mg/dL AST 24 (17-59) U/L ALT 18 (4-49) U/L Alkaline Phosphatase 66 (38-126) U/L Troponin I (0.000-0.034) ng/mL NT-Pro-B Natriuret Pep pg/mL Total Protein 6.3 (6.3-8.2) g/dL Albumin 3.9 (3.5-5.0) g/dL 12/24/20 12/24/20 12/24/20 Range/Units 10:38 10:38 10:38 WBC (3.8-10.6) k/uL RBC (4.30-5.90) m/uL Hgb (13.0-17.5) gm/dL Hct (39.0-53.0) % MCV (80.0-100.0) fL MCH (25.0-35.0) pg MCHC (31.0-37.0) g/dL RDW (11.5-15.5) % Plt Count (150-450) k/uL MPV Neutrophils % % Lymphocytes % % Monocytes % % Eosinophils % % Basophils % % Neutrophils # (1.3-7.7) k/uL Lymphocytes # (1.0-4.8) k/uL Monocytes # (0-1.0) k/uL Eosinophils # (0-0.7) k/uL Basophils # (0-0.2) k/uL PT (9.0-12.0) sec INR (<1.2) APTT (22.0-30.0) sec Sodium (137-145) mmol/L Potassium (3.5-5.1) mmol/L Chloride (98-107) mmol/L Carbon Dioxide (22-30) mmol/L Anion Gap mmol/L BUN (9-20) mg/dL Creatinine (0.66-1.25) mg/dL Est GFR (CKD-EPI)AfAm (>60 ml/min/1.73 sqM) Est GFR (CKD-EPI)NonAf (>60 ml/min/1.73 sqM) Glucose (74-99) mg/dL Plasma Lactic Acid Too 1.2 (0.7-2.0) mmol/L Calcium (8.4-10.2) mg/dL Total Bilirubin (0.2-1.3) mg/dL AST (17-59) U/L ALT (4-49) U/L Alkaline Phosphatase (38-126) U/L Troponin I <0.012 (0.000-0.034) ng/mL NT-Pro-B Natriuret Pep 111 pg/mL Total Protein (6.3-8.2) g/dL Albumin (3.5-5.0) g/dL Disposition <Miguelangel Pierre - Last Filed: 12/24/20 13:10> Is patient prescribed a controlled substance at d/c from ED?: No Time of Disposition: 13:22 <Raul Zuniga - Last Filed: 12/24/20 13:37> Clinical Impression: Shortness of breath, Pulmonary nodule Disposition: HOME SELF-CARE Condition: Good Instructions (If sedation given, give patient instructions): Shortness of Breath (ED) Additional Instructions: Use incentive spirometer. Follow-up with your doctor in one to 2 days. Follow- up at your scheduled appointment with pulmonology. Please return to the emergency room for any worsening symptoms. Referrals: [facility],Clinic [Primary Care Provider] - 1-2 days
[2020-12-24 10:54] LABS: Basophils % (A) 1 %; Eosinophils # (A) 0.2 k/uL (0-0.7); Eosinophils % (A) 3 %; HCT 37.5 % (39.0-53.0); HGB 13.5 gm/dL (13.0-17.5); Lymphocytes # (A) 1.3 k/uL (1.0-4.8); Lymphocytes % (A) 22 %; MCV 91.7 fL (80.0-100.0); Mean Platelet Volume 6.6; Monocytes # (A) 0.4 k/uL (0-1.0); Monocytes % (A) 7 %; Neutrophils % (A) 66 %; Platelet Count 189 k/uL (150-450); RBC 4.09 m/uL (4.30-5.90); RDW 13.1 % (11.5-15.5); WBC 6.1 k/uL (3.8-10.6)
[2020-12-24 11:14] LABS: ALT 18 U/L (4-49); AST 24 U/L (17-59); African American GFR (CKD) >90 (>60 ml/min/1.73 sqM); Albumin 3.9 g/dL (3.5-5.0); Alkaline Phosphatase 66 U/L (38-126); Anion Gap 4 mmol/L; Blood Urea Nitrogen 12 mg/dL (9-20); Calcium 9.2 mg/dL (8.4-10.2); Carbon Dioxide 28 mmol/L (22-30); Chloride 107 mmol/L (98-107); Glucose 103 mg/dL (74-99); Non-African American GFR(CKD) >90 (>60 ml/min/1.73 sqM); Partial Thromboplastin Time 22.8 sec (22.0-30.0); Potassium 4.1 mmol/L (3.5-5.1); Prothrombin Time 10.4 sec (9.0-12.0); Sodium 139 mmol/L (137-145); Total Bilirubin 0.5 mg/dL (0.2-1.3); Total Protein 6.3 g/dL (6.3-8.2)
--- NOTE | 2020-12-24 12:41 | CT ---
EXAMINATION TYPE: CT chest angio for PE DATE OF EXAM: 12/24/2020 COMPARISON: 11/16/2020 HISTORY: Difficulty Breathing CT DLP: 824.5 mGycm CONTRAST: CT chest with contrast and 3D reconstruction with MIP imaging is performed with IV Contrast, patient injected with 100 mL of Isovue 370. Contrast-enhanced CT of the chest was performed through the course of the pulmonary arteries with roverto g and mediastinal window settings submitted. 3D reconstruction with MIP imaging was also performed. PULMONARY ARTERIES: The pulmonary arteries and their major tributaries are patent. I do not see sandor dence for sizable filling defect to suggest pulmonary embolic process. LUNGS: Much improved infiltrates throughout both lung soriano although there is residual groundglass i nfiltrates seen bilaterally. Pulmonary nodule lateral left midlung zone measures 1.6 cm. This in part was present previously appears smaller and may reflect residual area of infiltrate or trapped fluid. Continued follow-up is advised. MEDIASTINUM: Thoracic aorta is of normal caliber,however, evaluation is limited given timing of the contrast bolus. If there is concern for thoracic aortic pathology consider FRANCISCO. Correlate clinicall y . The heart is not enlarged. No evidence for mediastinal mass. No mediastinal lymph nodes greater than 1cm. HILAR STRUCTURES: No evidence for mass. No hilar lymph nodes greater than 1 cm. UPPER ABDOMEN: No significant abnormality is seen. IMPRESSION: 1. No evidence for Pulmonary embolism at this time. 2. Much improved infiltrates as discussed. Nodular density. Follow-up in 3 months is advised.
[2020-12-24 13:53] VITALS: BP 140/93; PULSE 63; RESP 17; TEMP 98.2
== END 2020-12-24 13:45 | disposition home or self-care (01) ==
LOC: EC 09:53
DX: R91.1 Solitary pulmonary nodule (principal); M19.90 Unspecified osteoarthritis, unspecified site; G47.33 Obstructive sleep apnea (adult) (pediatric); E07.9 Disorder of thyroid, unspecified; K21.9 Gastro-esophageal reflux disease without esophagitis; J45.909 Unspecified asthma, uncomplicated; Z86.018 Personal history of other benign neoplasm; Z99.81 Dependence on supplemental oxygen
CPT/HCPCS: 36415; 83880; 80053; 83605; 84484; 85025; 85610; 85730; 71275; 99285; Q9967

== ENCOUNTER → 2021-02-16 | Outpatient (CLI) | payer OTHER | END | disposition home or self-care (01) | LOC: LABPAT 16:10 | PROVIDERS: ATTEND Orthopaedic Surgery | DX: Z01.812 Encounter for preprocedural laboratory examination (principal) | CPT/HCPCS: 87070 ==

== ENCOUNTER 2021-02-21 08:24 | Day surgery (SDC) | payer OTHER ==
[2021-02-17 17:54] VITALS: BMI 44.1
--- NOTE | 2021-02-20 12:01 | HP ---
HISTORY AND PHYSICAL REASON FOR ADMISSION: Surgery scheduled 02/21/2021 HISTORY OF PRESENT ILLNESS: Manuel Whittington is a 65-year-old patient seen with symptomatic left knee osteoarthritis. We discussed options for treatment. He elected to proceed with left total knee arthroplasty. Consent was obtained. Preoperative medical clearance was provided by the [facility]. PAST MEDICAL HISTORY: Hypertension, hyperlipidemia, hypothyroidism. PAST SURGICAL HISTORY: Pituitary tumor removal. DAILY MEDICATIONS: Synthroid, atorvastatin, omeprazole. ALLERGIES: CODEINE. SOCIAL HISTORY: Denies current tobacco use. PHYSICAL EXAMINATION: Evaluation of the left knee: Range of motion is -3/4 to 110. Tenderness is noted along the medial joint line. Crepitus medial patellofemoral compartments with range of motion. Pain with patellofemoral compression. Ligaments stable. Hip rotation without pain. Distal neurovascular exam is intact. RADIOGRAPHS: Left knee radiographs reveal severe medial compartment osteoarthritis and moderate patellofemoral compartment osteoarthritis. IMPRESSION: 1. Left knee osteoarthritis. 2. Hypertension. 3. Hyperlipidemia. 4. Hypothyroidism. PLAN: Left total knee arthroplasty. Surgery 02/21/2021. MMODL / IJN: [id number] /
[~2021-02-21 08:24] MED LIST: ACETAMINOPHEN TAB 500 MG TAB PO PRN; DEXAMETHASONE SOD PHOSPHATE 4 MG/ML 1 ML VIAL IV ONE; LIDOCAINE 1% (10MG/ML) FOR IV START INTRADERMA PRN; MELOXICAM 7.5 MG TAB PO PRN; MIDAZOLAM 2 MG/2 ML VIAL IV PRN; ONDANSETRON 4 MG/2 ML VIAL IVP ONE; ONDANSETRON 4 MG/2 ML VIAL IVP PRN; ROPIVACAINE/EPI/CLONIDINE/KET 50 ML SYRINGE MISCELLANE PRN; TRANEXAMIC ACID 1,000 MG in SODIUM CHLORIDE 0.9% 100 ML IVPB PRN; ceFAZolin 3 GM in SODIUM CHLORIDE 0.9% 100 ML IVPB PRN
[2021-02-21 09:10] LABS: Glucose,Whole Blood 118 mg/dL (75-99)
[2021-02-21] MEDS ORDERED: fentaNYL (PF) 50 MCG/ML 2 ML AMP IVP ONE (09:25)
[2021-02-21] MEDS ORDERED: MIDAZOLAM 2 MG/2 ML VIAL IVP ONE (09:25)
[2021-02-21] MEDS: LACTATED RINGERS 1,000 ML IV SCH (09:53)
[2021-02-21] MEDS ORDERED: ONDANSETRON 4 MG/2 ML VIAL ONE (10:15)
[2021-02-21] MEDS ORDERED: PROPOFOL 10 MG/ML 20 ML VIAL IV ONE (10:15)
[2021-02-21] MEDS ORDERED: ROPIVACAINE 5 MG/ML 30 ML VIAL ONE (10:15)
[2021-02-21] MEDS ORDERED: NEOSTIGMINE 1 MG/ML 10 ML VIAL ONE (10:15)
[2021-02-21] MEDS ORDERED: HYDROmorphone (PF) 1 MG/ML ONE (10:15)
[2021-02-21] MEDS ORDERED: SODIUM CHLORIDE 0.9% 100 ML BAG ONE ×2 (10:15)
[2021-02-21] MEDS ORDERED: ROCURONIUM 10 MG/ML (5 ML VIAL) IV ONE (10:15)
[2021-02-21] MEDS ORDERED: MIDAZOLAM 2 MG/2 ML VIAL ONE (10:15)
[2021-02-21] MEDS ORDERED: LIDOCAINE 1% INJ 10MG/ML (20 ML MDV) ONE (10:15)
[2021-02-21] MEDS ORDERED: SUCCINYLCHOLINE CHLORIDE VIAL 200 MG/10 ML VIAL IV ONE (10:15)
[2021-02-21] MEDS ORDERED: TRANEXAMIC ACID 1,000 MG/10 ML VIAL ONE ×2 (10:15)
[2021-02-21] MEDS ORDERED: DEXAMETHASONE SOD PHOSPHATE 4 MG/ML 1 ML VIAL ONE ×2 (10:15)
[2021-02-21] MEDS ORDERED: GLYCOPYRROLATE 0.2 MG/ML 2 ML VIAL ONE (10:15)
[2021-02-21] MEDS ORDERED: fentaNYL (PF) 50 MCG/ML 2 ML AMP ONE (10:15)
[2021-02-21] MEDS ORDERED: ceFAZolin 1,000 MG in SODIUM CHLORIDE 0.9% 1,000 ML IRRIGATION ONE (11:01)
[2021-02-21] MEDS ORDERED: LACTATED RINGERS 1,000 ML IV ONE (12:05)
[2021-02-21] MEDS ORDERED: NALOXONE 0.4 MG/ML 1 ML VIAL IV PRN (12:07)
[2021-02-21] MEDS ORDERED: HYDROcodone/APAP 7.5-325MG 1 EACH TAB PO PRN (12:07)
[2021-02-21] MEDS ORDERED: HYDROcodone/APAP 5-325MG 1 EACH TAB PO PRN (12:07)
--- NOTE | 2021-02-21 12:37 | P.OP ---
Date of Procedure: 02/21/21 Preoperative Diagnosis: Left knee osteoarthritis Postoperative Diagnosis: Left knee osteoarthritis Procedure(s) Performed: Left total knee arthroplasty Implants: 1. Depuy attune size 10 left cruciate retaining cemented femur 2. Depuy attune size 10 fixed-bearing cemented tibial baseplate 3. Depuy attune size 10 fixed-bearing cruciate retaining 7 mm polyethylene tibial insert 4. Depuy attune 41 mm all polyethylene cemented patella Anesthesia: GETA, regional (Adductor canal catheter, Ipack block) Surgeon: Luis Alberto Colindres Clinical Support Associate #1: Margarito Ding Estimated Blood Loss (ml): 70 Pathology: other (Bone) Condition: stable Disposition: PACU Indications for Procedure: 65-year-old patient seen with symptomatic left knee osteoarthritis. After treatment options were discussed, he elected to proceed with total knee ar throplasty. Operative Findings: See description of procedure Description of Procedure: Patient was taken to the operative suite after having an adductor canal catheter placed by the department of anesthesia along with Ipack block for postoperative pain management Patient underwent a general anesthetic after attempted spinal anesthetic by the department of anesthesia. Patient was given preoperative IV intake antibiotics and TXA. A well-padded tourniquet was placed about the left lower extremity. The lower extremity was then prepped and draped in the normal sterile orthopedic fashion. The extremity was elevated, a tourniquet was insufflated to 300. A standard anterior incision was made sharply through skin. Dissection was taken down through the subcutaneous soft tissues down to the extensor mechanism. A medial arthrotomy was performed, patella was everted and knee was flexed. There was advanced osteoarthritis noted. I introduced my distal intramedullary femoral drill. I then introduced the distal femoral cutting jig. Edison NOYOLA secured the cutting jig with 2 pins. I held retractors in position while Edison NOYOLA performed the distal femoral resection through the guide area we now removed her distal femoral cutting guide. We now placed our 4-in-1 femoral cutting block and positioned and it was secured with 2 pins by Edison NOYOLA while I held the block in position. The distal femoral finishing was now completed. A proximal tibial cutting guide was positioned. I held the guide in the appropriate position with both hands well Edison NOYOLA inserted stabilizing pins into the guide. Proximal tibial cut was made. We now placed a trial femoral component into position, along with an appropriate size tibial tray and insert. We now took the knee through range of motion and had full extension good flexion and good overall soft tissue balance noted. The patella was everted and stabilized with 2 towel clips held by Edison NOYOLA while I performed a flush with patellar quad tendon utilizing a fresh sawblade. We templated the patella, appropriate drill holes were made. An appropriate trial patella was positioned, knee was taken through full range of motion with the patella tracking very nicely. The trial patella was removed. Drill holes were made through the femoral component. All trial components were removed after marking off the appropriate rotation of the tibia. Retractors were now positioned along the proximal tibia. An appropriate keel punch was made with the appropriate size tibial guide by myself on Edison NOYOLA assisted by holding retractors. At this point appropriate size implants were chosen and opened. The joint was irrigated copiously with pulse lavage mechanical irrigation. The posterior capsule was infiltrated with local analgesic. The wound was irrigated with pulse lavage mechanical irrigation. We mixed antibiotic methylmethacrylate. We placed the knee into flexion. We placed multiple retractors assisted by Edison NOYOLA to expose the proximal tibia. Once the methyl methacrylate was ready, the tibial component was cemented into place removing any excess methylmethacrylate form by both myself and Edison NOYOLA. The femoral component was cemented into place removing the removing any excess methylmethacrylate performed by both myself and Edison NOYOLA. We then inserted the appropriate size polyethylene tibial insert. We made sure that it was locked into position. We took the knee into full extension, and then back in a flexion making sure we had removed any excess methylmethacrylate. The patellar component was then cemented down and secured with clamp. Excess methylmethacrylate removed. We kept the knee in full extension, patellar clamp in position until methylmethacrylate had hardened. Once it had hardened the patellar clamp was removed. The knee was taken through full range of motion. The patella tracked nicely. There was good soft tissue balancing. The tourniquet was now released. Additional hemostasis was achieved via electrocautery. A second gram of TXA was given. The wound again was irrigated with pulse lavage mechanical irrigation. The superficial soft tissues were infiltrated local analgesic. The extensor mechanism was repaired with Ethibond. We checked the repair with range of motion and it was stable. The subcutaneous soft tissues were repaired with Vicryl in layers. The skin was approximated with pernio/Dermabond. Sterile dressings were applied followed by loose web roll and Popeye bandage. The patient was transferred to a bed, and taken to recovery in stable and satisfactory condition. Edison NOYOLA assisted with this complex procedure.
[2021-02-21] MEDS ORDERED: MEPERIDINE 50 MG/ML SYRINGE IVP ONE (12:56)
[2021-02-21] MEDS ORDERED: HYDROmorphone 0.5 MG/0.5 ML SYRINGE IVP ONE ×2 (13:17→13:38)
[2021-02-21] MEDS ORDERED: METOCLOPRAMIDE 5 MG/ML 2 ML VIAL ONE (13:20)
[2021-02-21] MEDS ORDERED: ROPIVACAINE 0.2%-NS ON-Q PUMP 2 MG/ML EACH MISCELLANE ONE (13:21)
[2021-02-21] MEDS ORDERED: METOCLOPRAMIDE 5 MG/ML 2 ML VIAL IVP ONE (13:21)
--- NOTE | 2021-02-21 13:23 | XR ---
EXAMINATION TYPE: XR knee limited LT DATE OF EXAM: 02/21/2021 COMPARISON: NONE TECHNIQUE: Two views submitted HISTORY: Post op FINDINGS: There is a prosthetic knee in near anatomic alignment. There is soft tissue edema and emphysema. IMPRESSION: 1. Postoperative change. Appears in near-anatomic alignment
--- NOTE | 2021-02-21 15:21 | P.ANPRN ---
Procedure Note - Anesthesia - Nerve Block Performed Left Adductor Canal Infusion Time Out Performed: Yes Date of Procedure: 02/21/21 Procedure Start Time: :13 Procedure Stop Time: :30 Location of Patient: PreOp Indication: Acute Post-Operative Pain, Dx/Pain Location, Requested by Surgeon Specifically requested for management of pain by : Luis Alberto Colindres Sedation Type: Sedate with meaningful contact maintained Preparation: Sterile Prep, Sterile Dressing Position: Supine Catheter Depth at Skin (cm): 7 Catheter: Indwelling Needle Types: Pajunk Needle Gauge: 21 Ultrasound used to visualize needle placement: Yes Ultrasound used to observe medication spread: Yes Injectate: 0.5% Ropivacaine (see comment for volume) Blood Aspirated: No Pain Paresthesia on Injection Noted: No Resistance on Injection: Normal Image Stored and Saved: Yes Events: Uneventful and Well Tolerated (20cc 0.5% ropicacaine with 4mg dexamethasone)
--- NOTE | 2021-02-21 15:23 | P.ANPRN ---
Procedure Note - Anesthesia - Nerve Block Performed Left iPack Single Time Out Performed: Yes Date of Procedure: 02/21/21 Procedure Start Time: : Procedure Stop Time: :36 Location of Patient: PreOp Indication: Acute Post-Operative Pain, Dx/Pain Location, Requested by Surgeon Specifically requested for management of pain by : Luis Alberto Colindres Sedation Type: Sedate with meaningful contact maintained Preparation: Sterile Prep, Sterile Dressing Position: Supine Catheter: None Needle Types: Ultralifey Needle Gauge: 21 Ultrasound used to visualize needle placement: Yes Ultrasound used to observe medication spread: Yes Injectate: 0.5% Ropivacaine (see comment for volume) Blood Aspirated: No Pain Paresthesia on Injection Noted: No Resistance on Injection: Normal Image Stored and Saved: Yes Events: Uneventful and Well Tolerated (15cc 0.5% ropivacaine with 4mg dexamethasone)
[2021-02-21] MEDS: ceFAZolin 3 GM in SODIUM CHLORIDE 0.9% 100 ML IVPB SCH ×2 (16:11→23:15)
--- NOTE | 2021-02-21 16:12 | P.CONS ---
History of Present Illness - Reason for Consult Consult date: 02/21/21 pituitary tumor Requesting physician: Luis Alberto Colindres - Chief Complaint left knee pain - History of Present Illness Patient is a 65-year-old male with a history of GERD, osteoarthritis, hypothyroidism dyslipidemia, and pituitary tumor who presented for left total knee arthroplasty. Patient underwent procedure without any immediate postoperative complications. Patient seen and examined at bedside. Pain is currently controlled but is slightly increasing and his left knee. He states he is noted he needed a total knee replacement since May 2019 but the latest secondary to Covid. He did have a COVID-19 infection in October. He denies any chest pain, shortness breath, nausea, vomiting. He did take his Cortef this morning. He has been montero hypo- pit since requiring a second surgery for pituitary tumor. Pertinent positives and negatives as discussed in HPI, a complete review of systems was performed and all other systems are negative. General: non toxic, no distress, appears at stated age Derm: warm, dry Head: atraumatic, normocephalic, symmetric Eyes: EOMI, no lid lag, anicteric sclera, pupils equal round reactive to light ENT: Nose and ears atraumatic, no thrush Neck: trachea midline, supple Mouth: no lip lesion, mucus membranes moist Cardiovascular: S1S2 reg, no murmur, positive posterior tibial pulse bilateral, no edema, capillary refill less than 2 seconds Lungs: clear to ascultation bilateral, no ronchi, no rales, no wheeze, no accessory muscle use Abdominal: soft, nontender to palpation, no guarding, no appreciable organomegaly, normal bowel sounds Ext: no gross muscle atrophy, no contractures Neuro: CN II-XI grossly intact, light touch intact all 4 extremities, Psych: Alert, oriented, appropriate affect Patient is a 65-year-old male status post left total knee arthroplasty. Postoperative management per orthopedic surgery. Adrenal Insufficeincy as a result of [id number] - IV Solu-Cortef 1 tonight -Resume Cortef and a.m. -Monitor closely for signs of hypotension Hypothyroidism -Resume Synthroid GERD -PPI Morbid obesity with BMI 45.5 -Outpatient structured weight loss CAREN -CPAP Thank you for allowing us to participate in the care of this pleasant patient. Do not hesitate to contact us with questions. Someone can be reached from the [facility] hospitalist group all hours of the day at [phone] or via [employer]. Past Medical History Past Medical History: GERD/Reflux, Hearing Disorder / Deafness, Memory Impairment, Osteoarthritis (OA), Pneumonia, Prostate Disorder, Sleep Apnea/CPAP/BIPAP, Thyroid Disorder, Vascular Disorder Additional Past Medical History / Comment(s): PITUITARY TUMOR removed x 2 has some short term memory since sx, cyst on liver,asthma as child, gout, chronic back pain, hx. lt lower leg wound, (lower legs discolored, states poor circulation), take diuretic for blood pressure per pt., cataracts, uses CPAP, covid pneumonia/pneumothorax in October History of Any Multi-Drug Resistant Organisms: None Reported Past Surgical History: Hernia Repair Additional Past Surgical History / Comment(s): sx to removed benign pituitary tumor-it grew back and in 1999 had it removed again,also had gamma knife radiation tx, deviated septum repair, jaw sx-removed benign tumor, metal removed from rt eye, colonoscopy, 2001-hernia repair w/mesh Past Anesthesia/Blood Transfusion Reactions: Motion Sickness, Postoperative Nausea & Vomiting (PONV) Additional Past Anesthesia/Blood Transfusion Reaction / Comm: "sensative to opiod based narcotics", never received any blood. Past Psychological History: No Psychological Hx Reported Smoking Status: Former smoker Past Alcohol Use History: None Reported Additional Past Alcohol Use History / Comment(s): started smoking as a teenager, quit 1990, smoked 1 ppd. Past Drug Use History: None Reported - Past Family History Mother Family Medical History: Hypertension, Myocardial Infarction (MS) Additional Family Medical History / Comment(s): 13 people on mom's side of family from mi's Father Family Medical History: Myocardial Infarction (MS) Additional Family Medical History / Comment(s): grandfather cad, from blood clot Medications and Allergies Home Medications Medication Instructions Recorded Confirmed Type Aspirin 325 mg PO DAILY@0709/04/16 02/18/21 History Levothyroxine Sodium [Synthroid] 112 mcg PO DAILY@0609/04/16 02/18/21 History Testosterone Cypionate 200 mg IM Q14D 09/04/16 02/18/21 History [Depo-Testosterone] Atorvastatin [Lipitor] 20 mg PO HS 11/16/20 02/18/21 History Furosemide [Lasix] 40 mg PO DAILY@0600 11/16/20 02/18/21 History Hydrocortisone [Cortef] 20 mg PO BID@0700,1500 11/16/20 02/18/21 History Omeprazole 20 mg PO DAILY@0700 11/16/20 02/18/21 History Ascorbic Acid [Vitamin C] 1,000 mg PO DAILY #60 tab 11/19/20 02/18/21 Rx Cholecalciferol [Vitamin D3 (25 2,000 unit PO DAILY 12/24/20 02/18/21 History Mcg = 1000 Iu)] Sildenafil Citrate [Viagra] 50 mg PO DAILY PRN 12/24/20 02/18/21 History Cyanocobalamin (Vitamin B-12) 1,000 mcg PO DAILY 02/18/21 02/18/21 History [Vitamin B-12] Niacin [Niaspan] 500 mg PO DAILY 02/18/21 02/18/21 History Zinc 50 mg PO DAILY 02/18/21 02/18/21 History Allergies Allergy/AdvReac Type Severity Reaction Status Date / Time codeine Allergy dizzy Verified 02/17/21 17:24 morphine Allergy dizzy, Verified 02/17/21 17:24 throat swelling Physical Exam Osteopathic Statement: *. No significant issues noted on an osteopathic structural exam other than those noted in the History and Physical/Consult. Vitals: Vital Signs Temp Pulse Resp BP Pulse Ox 02/21/21 13:45 66 16 128/62 94 L 02/21/21 13:30 63 14 143/76 97 02/21/21 13:15 58 L 16 145/63 98 02/21/21 13:00 60 14 145/73 94 L 02/21/21 12:51 97.0 F L 68 16 132/71 95 02/21/21 09:50 74 16 134/74 98 02/21/21 08:45 98.2 F 78 16 170/85 97 Intake and Output 02/21/21 02/21/21 02/21/21 06:59 14:59 22:59 Intake Total 1701 Output Total 70 Balance 1631 Intake: IV 1701 Output: Estimated Blood Loss 70 Other: Weight 151.8 kg Results Labs: Abnormal Lab Results - Last 24 Hours (Table) 02/21/21 Range/Units 09:07 POC Glucose (mg/dL) 118 H (75-99) mg/dL
[2021-02-21] MEDS: ACETAMINOPHEN TAB 325 MG TAB PO PRN ×2 (16:29→23:18)
[2021-02-21] MEDS ORDERED: HYDROCORTISONE SUCCINATE 100 MG/2 ML VIAL IV ONE (17:00)
[2021-02-21] MEDS: ENOXAPARIN 30 MG/0.3 ML SYRINGE SQ SCH (20:51)
[2021-02-21] MEDS ORDERED: SENNOSIDES-DOCUSATE SODIUM 1 EACH TAB PO SCH (21:00)
[2021-02-21] MEDS ORDERED: ATORVASTATIN 20 MG TAB PO SCH (21:00)
[2021-02-22] MEDS: LACTATED RINGERS 1,000 ML IV SCH (00:08)
[2021-02-22] MEDS ORDERED: LEVOTHYROXINE 112 MCG TAB PO SCH (06:00)
[2021-02-22] MEDS ORDERED: HYDROCORTISONE 10 MG TAB PO SCH (07:00)
[2021-02-22] MEDS ORDERED: PANTOPRAZOLE 40 MG TABLET PO SCH (07:00)
[2021-02-22 07:41] VITALS: BP 136/90; PULSE 96; RESP 18; TEMP 98.8
--- NOTE | 2021-02-22 08:35 | P.PN ---
Progress Note - Text Progress Note Date: 02/22/21 Patient POD #1 s/p left total knee arthroplasty. Patient received adductor canal catheter for post operative pain control. Patients pain is well controlled with catheter infusion and oral pain medicine. Continue infusion until finished. No complications from procedure.
[2021-02-22] MEDS ORDERED: CHOLECALCIFEROL 25 MCG (1000 IU) TABLET PO SCH (09:00)
[2021-02-22] MEDS ORDERED: CYANOCOBALAMIN 500 MCG TAB PO SCH (09:00)
[2021-02-22] MEDS ORDERED: ASCORBIC ACID 500 MG TAB PO SCH (09:00)
[2021-02-22] MEDS ORDERED: ZINC SULFATE 220 MG CAP PO SCH (09:00)
[2021-02-22] MEDS: ENOXAPARIN 30 MG/0.3 ML SYRINGE SQ SCH (09:02)
[2021-02-22] MEDS: ACETAMINOPHEN TAB 325 MG TAB PO PRN ×2 (09:04→13:35)
--- NOTE | 2021-02-22 09:29 | P.PN ---
Subjective Progress Note Date: 02/22/21 Principal diagnosis: knee pain Patient is a 65-year-old male with a history of GERD, osteoarthritis, hypothyroidism dyslipidemia, and pituitary tumor who presented for left total knee arthroplasty. Patient underwent procedure without any immediate postoperative complications. Blood pressure did well overnight. Patient seen and examined at bedside. Pain is well controlled. No CAMP[place]DE/N/V/Dizziness. Feeling well. Has not walked yet. General:non toxic, no distress, appears at stated age Derm: warm, dry Head: atraumatic, normocephalic, symmetric Eyes: EOMI, no lid lag, anicteric sclera Mouth: no lip lesion, mucus membranes moist Cardiovascular: S1S2 reg, no murmur, positive posterior tibial pulse bilateral, Lungs: CTA bilateral, no rhonchi, no rales , no accessory muscle use Abdominal: soft, nontender to palpation, no guarding, no appreciable organomegaly Ext: no gross muscle atrophy, trace edema, no contractures Neuro: CN II-XI grossly intact, no focal neuro deficits Psych: Alert, oriented, appropriate affect Adrenal Insufficeincy as a result of [id number] - IV Solu-Cortef 1 tonight - Resume Cortef and a.m. - Monitor closely for signs of hypotension Hypothyroidism as a result of [id number] -Resume Synthroid GERD -PPI Morbid obesity with BMI 45.5 -Outpatient structured weight loss CAREN -CPAP Medically stable for discharge if HgB >9. Instructions for cortef added to discharge. Objective - Vital Signs Vital signs: Vital Signs Temp 98.8 F 02/22/21 07:40 Pulse 96 02/22/21 07:40 Resp 18 02/22/21 07:40 BP 136/90 02/22/21 07:40 Pulse Ox 94 L 02/22/21 07:40 Intake & Output 02/21/21 02/22/21 02/22/21 18:59 06:59 18:59 Intake Total 1701 Output Total 370 Balance 1331 Weight 151.8 kg Intake: IV 1701 Output: Urine 300 Estimated Blood Loss 70 Other: Voiding Method Urinal # Voids 2
--- NOTE | 2021-02-22 12:25 | P.DS ---
Providers Date of admission: 02/21/2021 Expected date of discharge: 02/22/21 Attending physician: Luis Alberot Colindres Consults: 02/21/21 12:11 Consult Physician Routine Consulting Provider: Tara Forte Consult Reason/Comments: Medical Management; s/p left total knee arthroplasty Do you want consulting provider notified?: Yes Primary care physician: [facility] Hospital Course: Date of admission: 02/21/2021 Date of discharge: 02/22/2021 Admission diagnosis: Left knee osteoarthritis Discharge diagnosis: Same Attending physician: Dr. Colindres Surgical procedures: Left total knee arthroplasty Brief history: Patient is a 65-year-old male with a history of progressive primary left knee osteoarthritis. At this point patient has failed conservative treatment measures and has opted to proceed with a elective left total knee arthroplasty. Hospital course: Details of patient's surgery can be found in operative report. Patient tolerated the procedure well and was subsequently transported to orthopedic floor. Patient's orthopeidc and medical care was provided daily. Patient had daily laboratory tests performed for evaluation of overall blood counts . Patient had daily physical therapy to include strengthening range of motion as well as education with walker ambulation. Patient was treated with Lovenox for their postoperative DVT prophylaxis during their inpatient stay. Patient was noted to have a relatively uneventful postoperative course. Patient reported satisfactory pain control with oral pain medications by postoperative day 1. Patient showed satisfactory progress with physical therapy. Patient moved steadily through the program and had no difficulty meeting the goals by postoperative day 1. Given patient's otherwise satisfactory course and having met physical therapy goals, plan is to discharge patient home on postoperative day 1. Discharge condition/disposition: Patient will be discharged home in stable condition. Discharge medications: Instructions are given on resumption of patient's normal daily medications per primary care recommendation. Patient will resume regular aspirin and take Tylenol for pain medication Discharge instructions: 1. Wound care and infection precautions, keep incision dry and covered while showering, no lotions, creams, moisturizers. No soaking, tubs, pools, hottubs. Do not scrub over the incision. 2. Weight-bear as tolerated with walker / cane until follow-up. 3. Ice and elevate when necessary. Do not exceed 20 minutes per hour with ice pack. 4. Utilize compression sleeve until seen at first follow up appointment. 5. Visiting nursing care. 6. Home physical therapy including home CPM. 7. Pain meds and anticoagulants per prescription. 8. Pain medication has potential to cause constipation. Increase oral fluid and fiber intake. Contact primary care provider if you have not had a bowel movement within 48 hours after discharge 9. No anti-inflammatory medication until discussed at first post operative visit, this including Motrin, Aleve, Mobic, Diclofenac. 10. Follow up in office at 2 weeks postop with Edison Ding PA-C / Joaquín Whitehead PA-C 11. Follow up with your primary care doctor 7-10 days after discharge. 12. Contact [facility] with any questions, . Assessment: Left knee osteoarthritis Procedures: Left total knee arthroplasty Patient Condition at Discharge: Good Plan - Discharge Summary Discharge Rx Participant: Yes New Discharge Prescriptions: Continue Testosterone Cypionate [Depo-Testosterone] 200 mg IM Q14D Levothyroxine Sodium [Synthroid] 112 mcg PO DAILY@0600 Atorvastatin [Lipitor] 20 mg PO HS Hydrocortisone [Cortef] 20 mg PO BID@0700,1500 Cholecalciferol [Vitamin D3 (25 Mcg = 1000 Iu)] 2,000 unit PO DAILY Niacin [Niaspan] 500 mg PO DAILY Cyanocobalamin (Vitamin B-12) [Vitamin B-12] 1,000 mcg PO DAILY Furosemide [Lasix] 40 mg PO DAILY@0600 Omeprazole 20 mg PO DAILY@0700 Ascorbic Acid [Vitamin C] 1,000 mg PO DAILY #60 tab Sildenafil Citrate [Viagra] 50 mg PO DAILY PRN PRN Reason: sexual intercourse Zinc 50 mg PO DAILY No Action Aspirin 325 mg PO DAILY@0700 Discharge Medication List Aspirin 325 mg PO DAILY@0700 09/04/16 [History] Levothyroxine Sodium [Synthroid] 112 mcg PO DAILY@0600 09/04/16 [History] Testosterone Cypionate [Depo-Testosterone] 200 mg IM Q14D 09/04/16 [History] Atorvastatin [Lipitor] 20 mg PO HS 11/16/20 [History] Furosemide [Lasix] 40 mg PO DAILY@0600 11/16/20 [History] Hydrocortisone [Cortef] 20 mg PO BID@0700,1500 11/16/20 [History] Omeprazole 20 mg PO DAILY@0700 11/16/20 [History] Ascorbic Acid [Vitamin C] 1,000 mg PO DAILY #60 tab 11/19/20 [Rx] Cholecalciferol [Vitamin D3 (25 Mcg = 1000 Iu)] 2,000 unit PO DAILY 12/24/20 [History] Sildenafil Citrate [Viagra] 50 mg PO DAILY PRN 12/24/20 [History] Cyanocobalamin (Vitamin B-12) [Vitamin B-12] 1,000 mcg PO DAILY 02/18/21 [History] Niacin [Niaspan] 500 mg PO DAILY 02/18/21 [History] Zinc 50 mg PO DAILY 02/18/21 [History] Follow up Appointment(s)/Referral(s): Margarito Ding, PAC [PHYSICIAN PUG MACHINE OPERATOR] - 2 Weeks Activity/Diet/Wound Care/Special Instructions: Special Instructions: Take your cortef 20 mg twice daily for the next 3 days, if you feel more adrenal insuffiecenty you can add a lunch time dose of 10 mg. After 3 days you should be able to resume your prior dosing of cortef 20 mg in the morning and 10 mg in the afternoon 1. The [facility] is setting up your home care. Health Education Assistant Dinora spoke with Karyn from the [facility] and she is processing it. *If you do not hear from a home care agency by 02/24/21, please call the [facility] - [phone]. 2. The [facility] is arranging a Flexinator (equivalent to the Continuous Passive Motion machine). Please contact them on 02/24/21 if you do not hear from the [employer] company. Orthopedic Discharge Instructions: 1. Wound care and infection precautions, keep incision dry and covered while showering, no lotions, creams, moisturizers. No soaking, pools, hot tubs. Do not scrub over incision. 2. Weight-bear as tolerated with walker / cane until follow-up. 3. Ice and elevate when necessary. Do not exceed 20 minutes per hour with ice pack. 4. Utilize compression sleeve until seen at first follow up appointment. 5. Pain meds and anticoagulants per prescription. 6. Pain medication has potential to cause constipation. Increase oral fluid and fiber intake. Contact primary care provider if you have not had a bowel movement within 48 hours after discharge. 7. No anti-inflammatory medication until discussed at first post operative visit, this including Motrin, Aleve, Mobic, Diclofenac. 8. Follow up in office at 2 weeks postop with Edison Ding PA-C / Joaquín Whitehead PA-C 9. Follow up with your primary care doctor 7-10 days after discharge. 10. Contact [facility] with any questions, . Please keep silver foam dressing on for first 7-10 days. While showering, use saran wrap over dressing. Dressing may be removed after 7-10 days. Discharge Disposition: HOME WITH HOME HEALTH SERVICES
[2021-02-22 12:58] LABS: Basophils # (A) 0.04 X 10*3/uL (0.00-0.10); Basophils % (A) 0.3 %; Eosinophils # (A) 0 X 10*3/uL (0.04-0.35); Eosinophils % (A) 0 %; HCT 38.2 % (39.6-50.0); HGB 13.1 g/dL (13.0-17.0); Lymphocytes # (A) 0.68 X 10*3/uL (0.90-5.00); Lymphocytes % (A) 4.8 %; MCH 32.4 pg (27.0-32.0); MCHC 34.3 g/dL (32.0-37.0); MCV 94.6 fL (80.0-97.0); Mean Platelet Volume 10.2 fL (9.5-12.2); Monocytes # (A) 1.06 X 10*3/uL (0.20-1.00); Monocytes % (A) 7.4 %; Neutrophils # (A) 12.43 X 10*3/uL (1.80-7.70); Neutrophils % (A) 86.9 %; Platelet Count 186 X 10*3/uL (140-440); RBC 4.04 X 10*6/uL (4.40-5.60); RDW 11.7 % (11.5-14.5)
--- NOTE | 2021-02-22 13:06 | P.PN ---
Subjective Progress Note Date: 02/22/21 Principal diagnosis: Left knee osteoarthritis Patient seen at bedside this morning. Patient was sitting up in chair next to bed. Patient says he is in minimal amount of pain. He says he did get up with physical therapy this morning and walk around room in the hallway and went up-and-down a couple steps. Patient says he is ready to go home. Patient says he has been using incentive spirometer. Patient denies having bowel movement yet, however, he says he has been passing gas. Patient denies chest pain, fever, shortness breath, nausea, vomiting, change in vision, saddle anesthesia, loss of bowel/bladder control. Objective - Vital Signs Vital signs: Vital Signs Temp 98.8 F 02/22/21 07:40 Pulse 96 02/22/21 08:15 Resp 18 02/22/21 08:15 BP 136/90 02/22/21 07:40 Pulse Ox 94 L 02/22/21 07:40 Intake & Output 02/21/21 02/22/21 02/22/21 18:59 06:59 18:59 Intake Total 1701 Output Total 370 Balance 1331 Weight 151.8 kg Intake: IV 1701 Output: Urine 300 Estimated Blood Loss 70 Other: Voiding Method Urinal Urinal # Voids 2 - Exam Left knee: Incision is clean, dry, and intact. The silver foam tape is in good condition. There is minimal soft tissue swelling and ecchymosis surrounding the medial and lateral aspects of the incision. Calf is soft, no tenderness with palpation. Plantar flexion, dorsiflexion, EHL, FHL are intact. Sensory exam to light touch throughout the extremity is intact, dorsal pedis pulses 2+. - Labs CBC & Chem 7: 02/22/21 05:26 Assessment and Plan Assessment: Left knee osteoarthritis Plan: 1. Left knee osteoarthritis - left total knee arthroplasty performed yesterday, 02/21/2021. Patient stable this morning and plan for discharge home today 2. Pain management - stable at this time; patient to take Tylenol at home for pain 3. Appreciate medical management 4. GI prophylaxis/DVT prophylaxis - Lovenox and senna in-hospital; patient to resume aspirin at home 5. PT/OT - weightbearing as tolerated with walker for assistance. 6. Encourage incentive spirometer use 7. Discharge planning - plan to discharge home today, 02/22/2021. Time with Patient: Less than 30
== END 2021-02-22 14:15 | disposition home health service (06) ==
LOC: OR 08:24 → 4SSUR 13:46 → OR 02-22 14:15
PROVIDERS: ATTEND Orthopaedic Surgery
DX: M17.12 Unilateral primary osteoarthritis, left knee (principal); E78.5 Hyperlipidemia, unspecified; I10 Essential (primary) hypertension; E03.9 Hypothyroidism, unspecified; G47.30 Sleep apnea, unspecified; K21.9 Gastro-esophageal reflux disease without esophagitis; Z98.890 Other specified postprocedural states; Z85.89 Personal history of malignant neoplasm of other organs and systems; Z90.89 Acquired absence of other organs; Z79.890 Hormone replacement therapy; Z79.899 Other long term (current) drug therapy; Z88.5 Allergy status to narcotic agent; Z88.8 Allergy status to other drugs, medicaments and biological substances
CPT/HCPCS: 97161; 64999; 64448; 76942; 85025; 88300; 73560; 27447; C1776; C1713 ×2; J2250; J0330; J1100; J2710; J2765; J1720; J2175; J0690 ×2; J2405; J2001; J3010; J1650 ×2; J1170 ×2; J2795 ×2; J2704

== ENCOUNTER → 2021-03-29 | Outpatient (CLI) | payer OTHER ==
[2021-03-29 11:10] LABS: HCT 39.8 % (39.6-50.0); HGB 13.4 g/dL (13.0-17.0); MCH 32.3 pg (27.0-32.0); MCHC 33.7 g/dL (32.0-37.0); MCV 95.9 fL (80.0-97.0); Mean Platelet Volume 9.8 fL (9.5-12.2); Platelet Count 189 X 10*3/uL (140-440); RBC 4.15 X 10*6/uL (4.40-5.60); WBC 6.03 X 10*3/uL (4.50-10.00)
[2021-03-29 13:52] LABS: Prolactin 11.6 ng/mL (2.1-17.7)
[2021-03-29 13:57] LABS: Prostate Specific Antigen 0.6 ng/mL (0.0-4.5)
== END | disposition home or self-care (01) ==
LOC: LABWHC1 08:10
PROVIDERS: ATTEND Internal Medicine Endocrinology, Diabetes & Metabolism
DX: D35.2 Benign neoplasm of pituitary gland (principal); E29.1 Testicular hypofunction; E27.49 Other adrenocortical insufficiency
CPT/HCPCS: 36415; 82024; 82533; 84146; 84153; 84403; 84443; 85027

== ENCOUNTER → 2021-04-05 | Outpatient (CLI) | payer MEDICARE, OTHER ==
--- NOTE | 2021-04-07 11:45 | CT ---
EXAMINATION TYPE: CT chest w con DATE OF EXAM: 04/05/2021 COMPARISON: 12/24/2020 CTA chest HISTORY: f/u covid pneumonia CT DLP: 680.7 mGycm, Automated exposure control for dose reduction was used. CONTRAST: Performed injected with 100 mL of Isovue 300. TECHNIQUE: Axial images were obtained at 5 mm thick sections. Reconstructed images are reviewed on [employer] computer in the coronal plane. FINDINGS: Portion of the thyroid visualized is normal. No suspicious lung nodules or focal infiltrates are present. Some minimal thickening along the major fissure on the left is present thickness of 0.6 cm. Series 4 image 31. This is significantly diminis hed from comparison. Previous diffuse groundglass opacities have resolved. No enlarged mediastinal or hilar adenopathy is evident. The ascending aorta diameter at the level o f the main pulmonary artery is 4.2 cm. The main pulmonary artery diameter at the bifurcation is 3.8 cm. Minimal coronary artery calcifications present. A small hiatal hernia is present. Limited CT sections are obtained through the upper abdomen. Abdomen is essentially unremarkable. IMPRESSIONS: 1. Minimal thickening within the major fissure on the left. Follow-up exam in 6 months can be perform ed. 2. Small hiatal hernia. 3. Ascending thoracic aortic aneurysm 4.2 cm. 4. No pneumothorax evident
== END | disposition home or self-care (01) ==
LOC: RADCTMAIN 17:56
PROVIDERS: ATTEND Internal Medicine Critical Care Medicine
DX: Z09 Encounter for follow-up examination after completed treatment for conditions other than malignant neoplasm (principal); K44.9 Diaphragmatic hernia without obstruction or gangrene; I71.2 Thoracic aortic aneurysm, without rupture; Z86.16 Personal history of COVID-19
CPT/HCPCS: 82565; 84520; 71260; 36415; Q9967

== ENCOUNTER → 2022-03-06 | Outpatient (CLI) | payer OTHER ==
--- NOTE | 2022-03-06 09:37 | CT ---
EXAMINATION TYPE: CT angio chest CT DLP: 1603.00 mGycm, Automated exposure control for dose reduction was used. DATE OF EXAM: 03/06/2022 9:05 AM COMPARISON: CT chest 04/05/2021. CLINICAL INDICATION:Male, 66 years old with history of I71.2; Thoracic ascending aorta TECHNIQUE/CONTRAST: CTA scan of the thorax is performed without and with IV Contrast, patient injected with 100 mL of Iso dwaine 370. MIP and 3-D images are created and reviewed. Coronal and sagittal reformats reviewed. FINDINGS: Lungs/Pleura: No evidence of focal consolidation, pleural effusion or pneumothorax. Decreased thicken ing along the left major fissure (series 4, image 33). No suspicious pulmonary nodules. Airway: Large airways are patent. Heart: Heart is within normal limits for size. No pericardial effusion. Small coronary artery calcifi cations. Vasculature: The unenhanced images do not demonstrate any evidence to suggest intramural hematoma. Af ter the administration of contrast, the aortic arch and thoracic aorta demonstrate a normal course. S table ascending thoracic aortic aneurysm measuring up to 4 cm. The descending thoracic aorta measures up to 3 cm. The pulmonary outflow tract appears within normal limits for size. There is no evidence of aortic dissection or acute aortic injury. Great arch vessels patent and normal in course and calib er. The visualized celiac axis and SMA are patent. Mediastinum: No gross evidence of adenopathy. Musculoskeletal: No acute osseous abnormalities. Multilevel Schmorl's nodes. Soft Tissues: Unremarkable. Lower neck: No significant findings. Upper Abdomen: Small hiatal hernia. IMPRESSION: 1. Stable ascending thoracic aortic aneurysm measuring up to 4 cm. 2. Decreased thickening along the left major fissure. 3. Small hiatal hernia.
== END | disposition home or self-care (01) ==
LOC: RADCTMAIN 07:14
DX: I71.2 Thoracic aortic aneurysm, without rupture (principal); K44.9 Diaphragmatic hernia without obstruction or gangrene
CPT/HCPCS: 82565; 84520; 71275; 36415; Q9967

== ENCOUNTER 2022-03-26 21:14 | Emergency (ER) | payer OTHER ==
[2022-03-26 21:19] VITALS: TEMP 98
--- NOTE | 2022-03-26 21:48 | ED ---
Chest Pain HPI - General Chief Complaint: Chest Pain Stated Complaint: Chest Pain, CHACHO Time Seen by Provider: 03/26/22 21:29 Source: patient Mode of arrival: wheelchair - History of Present Illness Initial Comments: This patient is a 66-year-old man with known history of thoracic aortic aneurysm, who presents with episode of chest pain that came on this evening. The patient states that he was sitting at a table using computer when he started to note substernal chest pain that was sharp, and rapidly became severe. He states that it radiated to the right side of his neck. I took his blood pressure at home and states that it was markedly high. He had been informed by his doctor to always be seen if this were the case and he comes here to be evaluated. He notes that he is feeling a bit better now, he had taken Axid dose of medication. There was also some accompanying dyspnea. No diaphoresis, palpitations, nausea or vomiting, lightheadedness or syncope. MD Complaint: chest pain -: hour(s) Onset: during rest Pain Location: substernal Pain Radiation: neck Severity: severe Quality: sharp Consistency: now resolved Improves With: nothing Worsens With: nothing Anginal Symptoms: dyspnea Treatments Prior to Arrival: other - Related Data Home Medications Medication Instructions Recorded Confirmed Testosterone Cypionate 200 mg IM Q14D 09/04/16 03/27/22 [Depo-Testosterone] Furosemide [Lasix] 40 mg PO DAILY 11/16/20 03/27/22 Hydrocortisone [Cortef] 20 mg PO DAILY 11/16/20 03/27/22 Omeprazole 20 mg PO DAILY 11/16/20 03/27/22 Cholecalciferol [Vitamin D3 (25 50 mcg PO DAILY 12/24/20 03/27/22 Mcg = 1000 Iu)] Sildenafil Citrate [Viagra] 50 mg PO DAILY PRN 12/24/20 03/27/22 Hydrocortisone [Cortef] 10 mg PO DAILY@1400 03/27/22 03/27/22 Hydrocortisone [Cortef] 10 mg PO DAILY@1400 PRN 03/27/22 03/27/22 Levothyroxine Sodium [Synthroid] 150 mcg PO DAILY 03/27/22 03/27/22 Losartan [Cozaar] 50 mg PO DAILY 03/27/22 03/27/22 Simvastatin [Zocor] 10 mg PO HS 03/27/22 03/27/22 Allergies Allergy/AdvReac Type Severity Reaction Status Date / Time morphine Allergy dizzy, Verified 03/27/22 12:01 throat swelling atorvastatin [From Lipitor] AdvReac muscle pain Verified 03/27/22 12:01 codeine AdvReac Dizzy/Heada Verified 03/27/22 12:01 joanna lisinopril AdvReac Cough Verified 03/27/22 12:01 Review of Systems ROS Statement: Those systems with pertinent positive or pertinent negative responses have been documented in the HPI. ROS Other: All systems not noted in ROS Statement are negative. Constitutional: Denies: fever, chills Respiratory: Reports: as per HPI, dyspnea. Denies: cough Cardiovascular: Reports: chest pain. Denies: palpitations, orthopnea, edema, syncope Gastrointestinal: Denies: abdominal pain, nausea, vomiting Genitourinary: Denies: dysuria, hematuria Musculoskeletal: Denies: back pain Skin: Denies: rash Neurological: Denies: headache, weakness, numbness EKG Findings - EKG Results: EKG: interpreted by ARANZAD, sinus rhythm (Rate 69 bpm), normal axis, normal QRS, normal ST/T - Blocks, Freeman, Hypertrophy, ST Abn: AV and intraventricular conduction: 1 AV block Past Medical History Past Medical History: GERD/Reflux, Memory Impairment, Osteoarthritis (OA), Pneumonia, Prostate Disorder, Sleep Apnea/CPAP/BIPAP, Thyroid Disorder, Vascular Disorder Additional Past Medical History / Comment(s): PITUITARY TUMOR removed x 2 has some short term memory since sx .cyst on liver,asthma as child, gout, chronic back pain,lt lower leg wound since mar 2016(lower legs discolored( stated poor circulation), in the past took meds for bp and chol-took himself off them, cataracts, had pne and shingles vaccine at [facility] closed at time of admit unable to verify dates. History of Any Multi-Drug Resistant Organisms: None Reported Past Surgical History: Hernia Repair Additional Past Surgical History / Comment(s): sx to removed pituitary tumor-it grew back and in 1999 had it removed again,also had gamma knife radiation tx, deviated septum repair, jaw sx-removed benign tumor, metal removed from rt eye, colonoscopy/polypectomt(benign), 2001,"MESH SURGERY ON STOMACH- HERNIA" Past Anesthesia/Blood Transfusion Reactions: Postoperative Nausea & Vomiting (PONV) Additional Past Anesthesia/Blood Transfusion Reaction / Comment(s): "sensative to opiod based narcotics" never received any blood. Past Psychological History: No Psychological Hx Reported Smoking Status: Never smoker - Past Family History Mother Family Medical History: Hypertension, Myocardial Infarction (ID) Additional Family Medical History / Comment(s): 13 people on mom's side of family from mi's Father Family Medical History: Myocardial Infarction (ID) Additional Family Medical History / Comment(s): grandfather cad, from blood clot General Exam General appearance: alert, in no apparent distress Head exam: Present: atraumatic, normocephalic Eye exam: Present: normal appearance. Absent: scleral icterus, conjunctival injection Neck exam: Present: normal inspection, full ROM, other (No bruit). Absent: tenderness Respiratory exam: Present: normal lung sounds bilaterally. Absent: respiratory distress, wheezes, rales, rhonchi, stridor Cardiovascular Exam: Present: regular rate, normal rhythm, normal heart sounds. Absent: systolic murmur, diastolic murmur, rubs, gallop GI/Abdominal exam: Present: soft. Absent: distended, tenderness, guarding, rebound, rigid, pulsatile mass Extremities exam: Present: normal inspection, normal capillary refill, pedal edema. Absent: calf tenderness Back exam: Present: normal inspection. Absent: CVA tenderness (R), CVA tenderness (L) Neurological exam: Present: alert Skin exam: Present: warm, dry, intact, normal color. Absent: rash Course Vital Signs 03/26/22 03/27/22 21:16 01:16 Temperature 98.0 F Pulse Rate 83 81 Respiratory 18 15 Rate Blood Pressure 148/86 143/67 O2 Sat by Pulse 98 97 Oximetry Chest Pain MDM - [facility] Patient is 66-year-old man with episode of chest pain. Workup here is negative and the patient's symptoms have resolved. Given the nature of his pain I did recommend that he stay overnight for telemetry monitoring, serial cardiac enzymes and cardiology consultation, but the patient states that he will follow up as outpatient instead. Discussed return parameters and appropriate further care and follow-up. Disposition Clinical Impression: Chest pain Disposition: HOME SELF-CARE Condition: Good Instructions (If sedation given, give patient instructions): Chest Pain (ED) Is patient prescribed a controlled substance at d/c from ED?: No Referrals: [facility],Clinic [Primary Care Provider] - 1-2 days
[2022-03-26 22:45] LABS: Basophils # (A) 0.1 k/uL (0-0.2); Basophils % (A) 1 %; Eosinophils # (A) 0.2 k/uL (0-0.7); Eosinophils % (A) 3 %; HCT 46.1 % (39.0-53.0); HGB 16.2 gm/dL (13.0-17.5); Lymphocytes # (A) 1.7 k/uL (1.0-4.8); Lymphocytes % (A) 22 %; MCH 33.1 pg (25.0-35.0); MCV 94.3 fL (80.0-100.0); Mean Platelet Volume 7.4; Monocytes # (A) 0.5 k/uL (0-1.0); Monocytes % (A) 7 %; Neutrophils # (A) 5.1 k/uL (1.3-7.7); Neutrophils % (A) 66 %; Platelet Count 191 k/uL (150-450); RBC 4.89 m/uL (4.30-5.90); RDW 12.4 % (11.5-15.5); WBC 7.8 k/uL (3.8-10.6)
[2022-03-26 22:56] LABS: Albumin 4.6 g/dL (3.5-5.0); Calcium 9.1 mg/dL (8.4-10.2); Magnesium 1.8 mg/dL (1.6-2.3); Potassium 4.3 mmol/L (3.5-5.1); Total Bilirubin 0.5 mg/dL (0.2-1.3); Total Protein 6.9 g/dL (6.3-8.2)
[2022-03-26 23:18] LABS: Partial Thromboplastin Time 25.2 sec (22.0-30.0); Prothrombin Time 10.9 sec (9.0-12.0)
--- NOTE | 2022-03-27 00:08 | CT ---
EXAMINATION TYPE: CT angio thor/abd pel aorta DATE OF EXAM: 03/26/2022 COMPARISON: Chest CT scan 822 HISTORY: CRUSHING SUBSTERNAL CHEST PAIN THAT RADIATES INTO RIGHT SIDE OF JAW CT DLP: 2358.8 mGycm Automated exposure control for dose reduction was used. CONTRAST: Performed with IV Contrast, patient injected with 100 mL of Isovue 370. There are images obtained from the thoracic inlet to the floor the pelvis with IV contrast. There are Three-D postprocessed images. There is no mediastinal adenopathy. Thoracic aorta is intact. There is a 4 cm aneurysm of the ascendi ng aorta.. There are no hilar masses. There is no evidence of filling defect in the pulmonary arterie s. The lungs are clear of consolidation. No pulmonary mass. No pleural effusion or pneumothorax. Heart size is normal. No pericardial effusion. Liver spleen and stomach pancreas and gallbladder appe ar intact. The bile ducts are not dilated. There is no adrenal mass. Kidneys show satisfactory contrast opacification. There is no hydronephrosi s. Ureters are not dilated. No retroperitoneal adenopathy. Bladder distends smoothly. No inguinal her joseph. No free fluid in the pelvis. No pelvic mass. The kidneys have normal size and contour. No hydronephrosis. No retroperitoneal adenopathy. Bladder distends smoothly. No inguinal hernia. Prostate measures 5.5 cm. No free fluid in the pelvis. The abdominal aorta has normal size and contour. No aneurysm. There is arterial flow in the celiac ar marlena and superior mesenteric artery. There is arterial flow in both renal arteries and the iliac and femoral arteries. No evidence of arterial aneurysm or dissection. No evidence of hemodynamic stenosis . 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 No evidence of arterial dissection in the chest abdomen and pelvis. No evidence of pulmonary embolism.
[2022-03-27 01:17] VITALS: BP 143/67; PULSE 81; RESP 15
== END 2022-03-27 01:11 | disposition home or self-care (01) ==
LOC: EC 21:14
DX: R07.89 Other chest pain (principal); K21.9 Gastro-esophageal reflux disease without esophagitis; M19.90 Unspecified osteoarthritis, unspecified site; E07.9 Disorder of thyroid, unspecified; M10.9 Gout, unspecified; Z88.5 Allergy status to narcotic agent; Z88.8 Allergy status to other drugs, medicaments and biological substances; Z79.890 Hormone replacement therapy
CPT/HCPCS: 36415; 93005; 85379; 80053; 83735; 84484; 85025; 85610; 85730; 71275; 74174; 99285; Q9967

== ENCOUNTER → 2022-08-02 | Outpatient (CLI) | payer OTHER ==
[2022-08-02 19:39] LABS: Prolactin 18.2 ng/mL (2.100-17.700); T4, Free (Free Thyroxine) 1.27 ng/dL (0.800-1.800)
== END | disposition home or self-care (01) ==
LOC: LABWHC1 13:17
PROVIDERS: ATTEND Internal Medicine Endocrinology, Diabetes & Metabolism
DX: D35.2 Benign neoplasm of pituitary gland (principal)
CPT/HCPCS: 36415; 82533; 83036; 84146; 84305; 84439; 84443; 84481

== ENCOUNTER → 2023-01-23 | Outpatient (CLI) | payer OTHER ==
[2023-01-23 14:03] LABS: African American GFR (CKD) 79 (>60 ml/min/1.73 sqM); Blood Urea Nitrogen 21 mg/dL (9-20); Non-African American GFR(CKD) 69 (>60 ml/min/1.73 sqM)
--- NOTE | 2023-01-23 20:52 | CT ---
EXAMINATION TYPE: CT angio chest DATE OF EXAM: 01/23/2023 COMPARISON: Prior CTA chest March 26, 2022 HISTORY: Thoracic Aortic Aneurysm CT DLP: 1560.4 mGycm. Automated Exposure Control for Dose Reduction was Utilized. CONTRAST: CTA scan of the thorax is performed without and with IV Contrast, patient injected with 100 ml mL of Isovue 370, aneurysm protocol. 3D reconstructed images are created on an independent workstation and reviewed. FINDINGS: LUNGS: The lungs remain grossly clear, there is no concerning parenchymal mass or nodule identified. There is no pleural effusion or pneumothorax seen. The tracheobronchial tree is patent. MEDIASTINUM: Noncontrast images show no hyperdense material to suggest intramural hematoma. Postcontr ast images redemonstrate prominent main and right pulmonary arteries suggesting underlying pulmonary artery hypertension.Ascending aorta measures 3.9 cm in diameter at level of main pulmonary artery axi al image 66. Aorta measures 3.7 cm in diameter level of the aortic root on image 84. Normal three-ves sona origin from the aortic arch. No aneurysm extension into the descending aorta . There are no great er than 1 cm hilar or mediastinal lymph nodes. No cardiomegaly or pericardial effusion is seen. OTHER: Slight scoliotic curvature and multilevel spurring in the thoracic spine is redemonstrated. IMPRESSION: Stable 3.9 cm ascending aortic aneurysm.
== END | disposition home or self-care (01) ==
LOC: RADCTMAIN 12:59
PROVIDERS: ATTEND Internal Medicine Interventional Cardiology
DX: I71.21 Aneurysm of the ascending aorta, without rupture (principal)
CPT/HCPCS: 82565; 84520; 71275; 36415; Q9967

== ENCOUNTER → 2023-03-16 | Outpatient (CLI) | payer OTHER ==
--- NOTE | 2023-03-16 12:06 | MR ---
EXAMINATION TYPE: MR lumbar spine wo con DATE OF EXAM: 03/16/2023 8:23 AM COMPARISON: 03/12/2023 CLINICAL INDICATION: Male, 67 years old with history of M43.07 SPONDYLOLYSIS, LUMBOSACRAL REGION; Low back pain into left buttocks TECHNIQUE: Multi planar, multi sequence imaging was performed utilizing: T1-weighted, T2-weighted, a nd turbo inversion recovery imaging of the lumbar spine. IV Contrast: None. FINDINGS: Alignment: The lumbar vertebral bodies have preserved heights. Mild scoliosis changes apex L3 on the left. Grade 1 anterolisthesis of L5 on S1. Cord: The conus medullaris and the distal spinal cord appear unremarkable with regards to their signa l intensity and morphology. Bones/Discs: Multilevel degeneration changes with disc space narrowing facet joint arthropathy Schmor l nodes and disc desiccation. Findings worse at L1-L4. T12-L1: No evidence of significant spinal canal stenosis or neural foraminal stenosis. L1-L2: Disc bulge and facet joint arthropathy without significant spinal canal stenosis and moderate bilateral neural foraminal stenosis. L2-L3: Disc bulge and facet joint arthropathy result in mild spinal canal and mild to moderate bilate ral neural foraminal stenosis. L3-L4: Disc bulge and facet joint arthropathy result in mild spinal canal and moderate bilateral neur al foraminal stenosis. L4-L5: Disc bulge and facet joint arthropathy without significant spinal canal stenosis and mild bila teral neural foraminal stenosis. L5-S1: Disc uncovering from grade 1 anterolisthesis and facet joint arthropathy with mild spinal brea l stenosis and moderate left and mild right. Neural foraminal stenosis. No significant spinal canal or neural foraminal stenosis in the remainder of the visualized levels. Other findings: Hi. IMPRESSION: 1. No definitive evidence of disc herniation or significant spinal canal stenosis. 2. Moderate disc degeneration with associated osteoarthritic changes worse at the lower lumbar spine with grade 1 anterolisthesis of L5 on S1.
== END | disposition home or self-care (01) ==
LOC: RADMRIMAIN 07:15
PROVIDERS: ATTEND Orthopaedic Surgery
DX: M43.07 Spondylolysis, lumbosacral region (principal); M51.37 Other intervertebral disc degeneration, lumbosacral region
CPT/HCPCS: 72148

== ENCOUNTER → 2023-07-31 | Outpatient (CLI) | payer OTHER ==
[2023-07-31 09:50] VITALS: BP 138/87; PULSE 70; RESP 16; TEMP 99
--- NOTE | 2023-07-31 14:01 | P.PAINPG ---
PQRS Measure Charge Sheet Comment: HISTORY OF PRESENT ILLNESS: A 68 yr old male w at side as a referral from Dr Coats presents today w severe and chronic LBP x 50 yrs secondary to DDD, spondylosis and facet arthropathy without myelopathy for evaluation. Pt states pain level is provoked at 6/10 in intensity, constant, localized in the lower lumbar spine, predominantly axial, achy in character w occasional shooting pain towards the BL hips. Pain is provoked by walking/ standing for periods of 20 min or more. Pain is alleviated by PT x 6 wks in May 2023, medications (Tyl, Flexeril, Celebrex), repositioning and rest. Oswestry axial pain score at 31. PMH: OA, GERD, BPH, CAREN, Hypothyroid Disorder, PVD, Gout PSH: Pituitary Tumor Removal x2, Hernia Repair, Deviated Septum Repair, Benign Tumor Resection from Jaw, R Eye Foreign Object Extraction, Colonoscopy/ Polypectomy (2001) SH: Negative x3. Hx of injury x 50 yrs FH: Mo- HTN, MT. Fa- MT. PGF- CVA. All: See list Meds: See list REVIEW OF ORGAN SYSTEMS: CONSTITUTIONAL: No fevers or chills. No recent weight loss. NEUROLOGICAL: + numbness and tingling along the distal extremities. No seizure disorders or headaches. MUSCULOSKELETAL: + pain PSYCHIATRIC: Denies current depression or suicidal thoughts. Physical Examinations : Constitutional : Cooperative , not in acute distress . Neurologic : Cranial nerve II to XII intact. No focal neurological deficits. Psychiatric : alert & oriented x 3. Matching mood & appropriate affect. Judgment & insight intact. Musculoskeletal : Cervical Spine Motor strength in the deltoid and biceps: Normal right side. Normal Left side Motor strength biceps and the wrist extensors: Normal right side . Normal left side Motor strength in the triceps muscle: Normal right side. Normal left side Deep tendon reflexes: Normal at the biceps. Normal at Brachioradialis. Normal at triceps Vertebral body tenderness to deep palpation over Cervical facet loading test: positive bilaterally Spurling test: positive bilaterally Neck distraction test: positive bilaterally Julissa sign: positive bilaterally Lumbar spine Motor strength lower extremities ,thigh and legs 5/5 Right side , 5/5 Left side Deep tendon reflexes : Normal Knee Jerk. Normal Ankle Jerk Vertebral body tenderness over L5 Garcia Test positive Lumbar facet Loading Test: positive Right / positive Left Range of motion of the lumbar spine Flexion 30 degrees, extension 10 degrees Straight Leg Raise test: Left/ Right positive at < 35 degrees Osmin test: positive right / positive left. Severe tenderness over the Sacroiliac joint on the Right / Left sides Gaenslen test: positive bilaterally Seated flexion test: positive bilaterally. Sacral spine : Severe tenderness over the Sacroiliac joint: right side / left side Range of motion: Flexion of the lumbar spine <60 degrees Range of motion: Extension of the lumbar spine <20 degrees Gaenslen's Test positive Osmin test: positive right side / left side Thigh Thrust Test Sacral Thrust Test Imaging: MRI noncontrast of the lumbar spine from 03/16/23 reviewed Assessment/ Plan : Lumbar DDD Recommendation of LESI L5-S1 #1. May need a series of injections for optimal pain relief. Risks, benefits of procedure discussed and patient verbalized understanding. Admits to anti- coagulant use or medical history of diabetes. Protocol for discontinuation/ continuation of medications annabelle procedure discussed. All questions answered. I have spent greater than 30 minutes on patient care today. Dr Agosto was available by phone for the evaluation of this patient. The time was used to review the medical records including relevant urine studies and Prescription history (MAPs), review of the available imaging, evaluation and examination of the patient, coordination of care with the medical staff and if applicable referring physicians, as well as creation of the medical record - Pain Location Bilateral Lower Back Non-Pharmacological Interventions: Chiropractic Treatment, Inactivity, Physical Therapy Pharmacological Interventions: PRN Medication, Topical Medication PQRS Narrative: Smoking Status Former smoker Home Medications: Ambulatory Orders Testosterone Cypionate [Depo-Testosterone] 200 mg IM Q14D 09/04/16 Furosemide [Lasix] 40 mg PO DAILY 11/16/20 Hydrocortisone [Cortef] 20 mg PO DAILY 11/16/20 Omeprazole 20 mg PO DAILY 11/16/20 Cholecalciferol [Vitamin D3 (25 Mcg = 1000 Iu)] 50 mcg PO DAILY 12/24/20 Sildenafil Citrate [Viagra] 50 mg PO DAILY PRN 12/24/20 Hydrocortisone [Cortef] 10 mg PO DAILY@1400 03/27/22 Hydrocortisone [Cortef] 10 mg PO DAILY@1400 PRN 03/27/22 Levothyroxine Sodium [Synthroid] 150 mcg PO DAILY 03/27/22 Losartan [Cozaar] 50 mg PO DAILY 03/27/22 Simvastatin [Zocor] 10 mg PO HS 03/27/22 Controlled Substance Measures - Controlled Substance Measures Is patient prescribed a controlled substance at discharge?: No
== END ==
LOC: PNWHC3 07:39
PROVIDERS: ATTEND Specialist
DX: M43.16 Spondylolisthesis, lumbar region (principal); M51.36 Other intervertebral disc degeneration, lumbar region; M19.90 Unspecified osteoarthritis, unspecified site; K21.9 Gastro-esophageal reflux disease without esophagitis; N40.0 Benign prostatic hyperplasia without lower urinary tract symptoms; E07.9 Disorder of thyroid, unspecified; I73.9 Peripheral vascular disease, unspecified; G47.33 Obstructive sleep apnea (adult) (pediatric); E78.5 Hyperlipidemia, unspecified; R73.03 Prediabetes; Z87.39 Personal history of other diseases of the musculoskeletal system and connective tissue; Z87.891 Personal history of nicotine dependence; Z79.890 Hormone replacement therapy; Z79.899 Other long term (current) drug therapy; Z88.5 Allergy status to narcotic agent; Z88.8 Allergy status to other drugs, medicaments and biological substances; Z86.79 Personal history of other diseases of the circulatory system
CPT/HCPCS: 99211

== ENCOUNTER 2023-08-07 11:13 | Day surgery (SDC) | payer OTHER ==
[2023-08-03 12:22] VITALS: BMI 44.0
[~2023-08-07 11:13] MED LIST changes: -ACETAMINOPHEN TAB 500 MG TAB PO PRN; -DEXAMETHASONE SOD PHOSPHATE 4 MG/ML 1 ML VIAL IV ONE; +LACTATED RINGERS 1,000 ML IV SCH; -LIDOCAINE 1% (10MG/ML) FOR IV START INTRADERMA PRN; -MELOXICAM 7.5 MG TAB PO PRN; -MIDAZOLAM 2 MG/2 ML VIAL IV PRN; -ONDANSETRON 4 MG/2 ML VIAL IVP ONE; -ONDANSETRON 4 MG/2 ML VIAL IVP PRN; -ROPIVACAINE/EPI/CLONIDINE/KET 50 ML SYRINGE MISCELLANE PRN; -TRANEXAMIC ACID 1,000 MG in SODIUM CHLORIDE 0.9% 100 ML IVPB PRN; -ceFAZolin 3 GM in SODIUM CHLORIDE 0.9% 100 ML IVPB PRN
[2023-08-07 11:37] LABS: Glucose,Whole Blood 133 mg/dL (70-110)
[2023-08-07 11:50] VITALS: RESP 16; TEMP 97.5
[2023-08-07] MEDS ORDERED: IOPAMIDOL M200 10 ML VIAL ONE (12:00)
[2023-08-07] MEDS ORDERED: methylPREDNISolone ACETATE 80 MG/ML 1 ML VIAL ONE (12:00)
--- NOTE | 2023-08-07 12:08 | P.PCN ---
Date of Procedure: 08/07/23 Procedure(s) Performed: PREOPERATIVE DIAGNOSIS: 1- Lumbar Degenerative Disc Diseases 2-Lumbar spondylosis with Facet arthropathy without myelopathy. POSTOPERATIVE DIAGNOSIS: 1-lumbar degenerative disc disease. 2-lumbar spondylosis with facet arthropathy without myelopathy. PROCEDURE 1. Lumbar epidural steroid injection under fluoroscopic guidance at the L5-S1 level. (Fluoroscopy imaging was available in radiology department) 2. Lumbar epidurogram. ANESTHESIA: Lidocaine 1% 3 and then only. EBL: Minimal PROCEDURE INDICATION: The patient with low back pain and radiculitis symptoms unresponsive to conservative treatment. Fluoroscopy was used to optimize visualization of the needle placement and to maximize safety. PROCEDURE DESCRIPTION / TECHNIQUE: The patient was seen and identified in the preoperative area. Risks, benefits, complications including but not limited to infections ,bleeding ,allergic reaction to the medications ,nerve damage and not complete pain releife , and alternatives were discussed with the patient. The patient agreed to proceed with the procedure and signed the consent, and vital signs were stable. Patient was taken to the OR and time out was completed. The patient was placed in the prone position on procedure table and a pillow was placed under the abdomen to reduce lumbar lordosis. The lumbosacral area was prepped and draped in the usual sterile fashion.ere closely monitored during the procedure. Vital signs was monitered during the entire procedure. Using anterior-posterior fluoroscopy, the L5-S1 interlaminar space was identified and the skin over this site was marked and then infiltrated with 1% lidocaine subcutaneously. Subsequently, a 18-gauge 6 inches long Tuohy epidural needle was inserted and advanced toward the epidural space using the ``Loss of resistance technique and guided by AP and lateral fluoroscopy. The correct needle position in the epidural space was verified with the injection of 2 mL of the water soluble contrast dye Isovue 200 contrast and observing an excellent epidurogram with the epidural spread of the dye, after negative aspiration for blood and CSF and in the absence of paresthesias. Again after negative aspiration, a 6 ml mixture containing 80 mg of Depo-medrol ( Preservetive Free ), and 2 ml of preservative free Normal Saline, and 2 ml of preservative free lidocaine 1% solution was injected and a washout of epidurogram was seen. Needle was withdrawn intact, skin was cleansed, and bandages were applied. COMPLICATIONS: None DISPOSITION / PLANS: The patient was placed in a supine position and transferred to the recovery area in a stable condition for observation. There was no evidence of lower extremity motor or sensory deficit after the procedure. Patient was discharged from the recovery room after meeting discharge criteria. Home discharge instructions were given to the patient by the staff. The patient was reexamined prior to discharge. The patient will schedule a follow up in the clinic in 2-4 weeks.
[2023-08-07 12:40] VITALS: BP 154/74; PULSE 75
--- NOTE | 2023-08-07 15:39 | FL ---
EXAMINATION TYPE: FL guided pain mgmt statistic DATE OF EXAM: 08/07/2023 FLUOROSCOPY Fluoroscopy time of 1 minute 8 seconds was used during lumbar epidural steroid injection. 1 image/s document/s the procedure. 0.0074 mGycm2 DAP.
== END 2023-08-07 12:37 | disposition home or self-care (01) ==
LOC: ORPAIN 11:13
PROVIDERS: ATTEND Specialist
DX: M47.816 Spondylosis without myelopathy or radiculopathy, lumbar region (principal); M51.36 Other intervertebral disc degeneration, lumbar region; Z79.899 Other long term (current) drug therapy
CPT/HCPCS: 62323; J1040; Q9966

== ENCOUNTER → 2023-09-26 | Outpatient (CLI) | payer OTHER ==
[2023-09-26 08:47] VITALS: BP 144/84; PULSE 77; RESP 16; TEMP 97.5
--- NOTE | 2023-09-26 14:26 | P.PAINPG ---
PQRS Measure Charge Sheet Comment: HISTORY OF PRESENT ILLNESS: A 68 yr old male presents today w severe and chronic LBP x 50 yrs secondary to DDD, spondylosis and facet arthropathy without myelopathy for evaluation s/p GAMA L5-S1 #1. Pt states he experienced 85% pain rleief x 6 wks s/p procedure. Pt states pain level is provoked at 6/10 in intensity, constant, localized in the lower lumbar spine, predominantly axial, stabbing in character w occasional shooting pain towards the R hip and LE. Pain is provoked by walking/ standing for periods of 20 min or more. Pain is alleviated by PT x 6 wks in May 2023, medications (Tyl, Flexeril, Celebrex), repositioning and rest. Oswestry axial pain score at 30. Interventional procedures include GAMA L5-S1 x1 Medications include Flexeril, Celebrex, Tyl REVIEW OF ORGAN SYSTEMS: CONSTITUTIONAL: No fevers or chills. No recent weight loss. NEUROLOGICAL: + numbness and tingling along the distal extremities. No seizure disorders or headaches. MUSCULOSKELETAL: + pain PSYCHIATRIC: Denies current depression or suicidal thoughts. Physical Examinations : Constitutional : Cooperative , not in acute distress . Neurologic : Cranial nerve II to XII intact. No focal neurological deficits. Psychiatric : alert & oriented x 3. Matching mood & appropriate affect. Judgment & insight intact. Musculoskeletal : Cervical Spine Motor strength in the deltoid and biceps: Normal right side. Normal Left side Motor strength biceps and the wrist extensors: Normal right side . Normal left side Motor strength in the triceps muscle: Normal right side. Normal left side Deep tendon reflexes: Normal at the biceps. Normal at Brachioradialis. Normal at triceps Vertebral body tenderness to deep palpation over Cervical facet loading test: positive bilaterally Spurling test: positive bilaterally Neck distraction test: positive bilate rally Julissa sign: positive bilaterally Lumbar spine Motor strength lower extremities ,thigh and legs 5/5 Right side , 5/5 Left side Deep tendon reflexes : Normal Knee Jerk. Normal Ankle Jerk Vertebral body tenderness over L5 Garcia Test positive Lumbar facet Loading Test: positive R ight / positive Left Range of motion of the lumbar spine Flexion 30 degrees, extension 10 degrees Straight Leg Raise test: Left/ Right positive at < 35 degrees Osmin test: positive right / positive left. Severe tenderness over the Sacroiliac joint on the Right / Left sides Gaenslen test: positive bilaterally Seated flexion test: positive bilaterally. Sacral spine : Severe tenderness over the Sacroiliac joint: right side / left side Range of motion: Flexion of the lumbar spine <60 degrees Range of motion: Extension of the lumbar spine <20 degrees Gaenslen's Test positive Osmin test: positive right side / left side Thigh Thrust Test Sacral Thrust Test Imaging: MRI noncontrast of the lumbar spine from 03/16/23 reviewed Assessment/ Plan : Lumbar DDD Recommendation of GAMA L5-S1 #2. May need a series of injections for optimal pain relief. Risks, benefits of procedure discussed and patient verbalized understanding. Admits to anti- coagulant use or medical history of diabetes. Protocol for discontinuation/ continuation of medications annabelle procedure discussed. All questions answered. I have spent greater than 30 minutes on patient care today. Dr Agosto was available by phone for the evaluation of this patient. The time was used to review the medical records including relevant urine studies and Prescription history (MAPs), review of the available imaging, evaluation and examination of the patient, coordination of care with the medical staff and if applicable referring physicians, as well as creation of the medical record PQRS Narrative: Smoking Status Former smoker Hx Alcohol Use (MH) No Home Medications: Ambulatory Orders Testosterone Cypionate [Depo-Testosterone] 200 mg IM Q14D 09/04/16 Furosemide [Lasix] 40 mg PO DAILY 11/16/20 Hydrocortisone [Cortef] 20 mg PO DAILY 11/16/20 Omeprazole 20 mg PO DAILY 11/16/20 Cholecalciferol [Vitamin D3 (25 Mcg = 1000 Iu)] 50 mcg PO DAILY 12/24/20 Sildenafil Citrate [Viagra] 50 mg PO DAILY PRN 12/24/20 Levothyroxine Sodium [Synthroid] 150 mcg PO DAILY 03/27/22 Losartan [Cozaar] 50 mg PO DAILY 03/27/22 Atorvastatin [Lipitor] 20 mg PO HS 08/03/23 Celecoxib [Celebrex] 200 mg PO DAILY 08/03/23 Meclizine [Antivert] 25 mg PO DAILY 08/03/23 Omeprazole [PriLOSEC] 20 mg PO AC-BRKFST 08/03/23 Zinc Gluconate [Zinc] 50 mg PO DAILY 08/03/23 metFORMIN HCL 500 mg PO BID 08/03/23 Cyclobenzaprine [Flexeril] 10 mg PO HS 08/07/23 Controlled Substance Measures - Controlled Substance Measures Is patient prescribed a controlled substance at discharge?: No
== END ==
LOC: PNWHC3 07:44
PROVIDERS: ATTEND Specialist
DX: M51.36 Other intervertebral disc degeneration, lumbar region (principal); Z87.891 Personal history of nicotine dependence; Z88.5 Allergy status to narcotic agent; Z88.8 Allergy status to other drugs, medicaments and biological substances
CPT/HCPCS: 99211

== ENCOUNTER 2023-10-09 06:20 | Day surgery (SDC) | payer OTHER ==
[2023-10-04 15:46] VITALS: BMI 44.7
[2023-10-09] MEDS ORDERED: LACTATED RINGERS 1,000 ML IV SCH (06:21)
[2023-10-09 06:47] LABS: Glucose,Whole Blood 134 mg/dL (70-110)
[2023-10-09 06:57] VITALS: TEMP 97.4
[2023-10-09] MEDS ORDERED: ROPIVACAINE 5MG/ML 20ML VIAL ONE (07:03)
[2023-10-09] MEDS ORDERED: IOPAMIDOL M300 15ML VIAL ONE (07:03)
[2023-10-09] MEDS ORDERED: methylPREDNISolone ACETATE 80 MG/ML 1 ML VIAL ONE (07:03)
--- NOTE | 2023-10-09 07:19 | P.PCN ---
Description of Procedure: PREOPERATIVE DIAGNOSIS: 1- Lumbar Degenerative Disc Diseases 2-Lumbar spondylosis with Facet arthropathy without myelopathy. 3-lumbar spinal stenosis POSTOPERATIVE DIAGNOSIS: 1-lumbar degenerative disc disease. 2-lumbar spondylosis with facet arthropathy without myelopathy. 3-lumbar spinal stenosis. PROCEDURE Injection of radial contrast material into L5-S1 interspace, interpretation of epidurogram, injection of steroid at L5-S1 epidural space under fluoroscopic guidance. ANESTHESIA: Lidocaine 1% subcutaneously. In OR continuous pulse ox, EKG, blood pressure and volleyball complication was maintained with the patient. EBL: Minimal PROCEDURE INDICATION: Before the procedure were discussed with the patient detailed procedure, alternatives, complications including infection, bleeding, nerve damage, paralysis all of which could be permanent. Patient understands and all questions were answered. PROCEDURE DESCRIPTION : After getting consent, patient in OR in prone position. Back was prepped with chlorhexidine and draped in sterile fashion. After injecting 10 mL of 1% lidocaine subcutaneously, a 20-gauge Tuohy needle was introduced at L5-S1 interspace with loss of resistance technique using a syringe filled with air. Negative CSF, negative blood, negative paresthesia. Needle position was confirmed with AP and lateral view of the fluoroscope. After repeat negative aspiration 2 mL of Omnipaque 200 water soluble contrast was injected. Contrast was noted in the epidural space. No contrast was noted into intrathecal or intravascular space. After repeat negative aspiration 6 mL solution was injected intermittently which consists of 5 mL of preservative-free normal saline mixed with 1 mL of 80 mg Depo-Medrol. Needle was withdrawn intact. Skin was cleansed and Band-Aids was applied. DISPOSITION / PLANS: The patient tolerated the procedure well. No complication. The patient was placed in a supine position and transferred to the recovery area in a stable condition for observation. There was no evidence of lower extremity motor or sensory deficit after the procedure. Patient was discharged from the recovery room after meeting discharge criteria. Home discharge instructions were given to the patient by the staff. The patient was reexamined prior to discharge. The patient will schedule a follow up in the clinic in 2-4 weeks.
[2023-10-09 07:34] VITALS: BP 149/76; PULSE 86; RESP 16
--- NOTE | 2023-10-09 08:20 | FL ---
EXAMINATION TYPE: FL guided pain mgmt statistic Intraoperative/procedural fluoroscopic services were provided. Total fluoroscopy time is 19 x 0 seconds with a total of 2 submitted images to PACS. Please see the operative/procedural note for further details. DAP: [id number] mGym2
== END 2023-10-09 07:39 | disposition home or self-care (01) ==
LOC: ORPAIN 06:20
PROVIDERS: ATTEND Pain Medicine Interventional Pain Medicine
DX: M51.36 Other intervertebral disc degeneration, lumbar region (principal); M47.816 Spondylosis without myelopathy or radiculopathy, lumbar region; M48.061 Spinal stenosis, lumbar region without neurogenic claudication; E11.9 Type 2 diabetes mellitus without complications; Z88.5 Allergy status to narcotic agent; Z88.8 Allergy status to other drugs, medicaments and biological substances
CPT/HCPCS: 62323; J1040; Q9967; J2795

== ENCOUNTER → 2023-10-09 | Outpatient (CLI) | payer OTHER ==
[2023-10-09 16:44] LABS: T4, Free (Free Thyroxine) 1.46 ng/dL (0.80-1.80)
[2023-10-09 16:55] LABS: Prolactin 15.7 ng/mL (2.100-17.000)
[2023-10-10 00:30] LABS: ACTH 5.45 pg/mL (0.00-45.99)
== END | disposition home or self-care (01) ==
LOC: LABWHC1 08:05
PROVIDERS: ATTEND Internal Medicine Endocrinology, Diabetes & Metabolism
DX: D35.2 Benign neoplasm of pituitary gland (principal)
CPT/HCPCS: 36415; 82024; 82533; 84146; 84305; 84439; 84443; 84480

== ENCOUNTER 2023-10-11 20:38 | Observation (INO) | payer MEDICARE, OTHER ==
--- NOTE | 2023-10-11 21:19 | ED ---
Nausea/Vomiting/Diarrhea HPI - General Chief complaint: Nausea/Vomiting/Diarrhea Stated complaint: vomitting - has a brain tumor Time Seen by Provider: 10/11/23 21:13 Source: patient, RN notes reviewed, old records reviewed Mode of arrival: wheelchair Limitations: no limitations - History of Present Illness Initial comments: This is a 68-year-old male to the ER for evaluation today. [facility] significant and severe nausea vomiting intractable nausea vomiting presented to the ER today. Patient also complaining of some headache and severe dizziness, patient has history of pituitary tumor on medications with no recent change in medications. Patient states he occasionally gets symptoms like this but can usually take a cortisol and feel better, he is unable to keep any medication down currently with active nausea vomiting on arrival to the ER today. Patient has no fevers or travel history no recent trauma MD complaint: nausea, vomiting, other (Dizziness) -: hour(s) Description of Vomiting: food contents, watery, bilious Associated Abdominal Pain: No Radiation: scalp, forehead, eyes, neck Severity: severe Severity scale (1-10): 8 Consistency: constant Improves with: none Worsens with: none Associated Symptoms: diaphoresis, nausea/vomiting, weakness - Related Data Home Medications Medication Instructions Recorded Confirmed Testosterone Cypionate 200 mg IM Q14D 09/04/16 10/09/23 [Depo-Testosterone] Furosemide [Lasix] 40 mg PO DAILY 11/16/20 10/09/23 Hydrocortisone [Cortef] 20 mg PO DAILY 11/16/20 10/09/23 Omeprazole 20 mg PO DAILY 11/16/20 10/09/23 Cholecalciferol [Vitamin D3 (25 50 mcg PO DAILY 12/24/20 10/09/23 Mcg = 1000 Iu)] Sildenafil Citrate [Viagra] 50 mg PO DAILY PRN 12/24/20 10/09/23 Levothyroxine Sodium [Synthroid] 150 mcg PO DAILY 03/27/22 10/09/23 Losartan [Cozaar] 50 mg PO DAILY 03/27/22 10/09/23 Atorvastatin [Lipitor] 20 mg PO HS 08/03/23 10/09/23 Celecoxib [Celebrex] 200 mg PO DAILY 08/03/23 10/09/23 Meclizine [Antivert] 25 mg PO DAILY 08/03/23 10/09/23 Zinc Gluconate [Zinc] 50 mg PO DAILY 08/03/23 10/09/23 metFORMIN HCL 500 mg PO BID 08/03/23 10/09/23 Cyclobenzaprine [Flexeril] 10 mg PO HS 08/07/23 10/09/23 Allergies Allergy/AdvReac Type Severity Reaction Status Date / Time morphine Allergy dizzy, Verified 10/11/23 20:47 throat swelling atorvastatin [From Lipitor] AdvReac muscle pain Verified 10/11/23 20:47 codeine AdvReac Dizzy/Heada Verified 10/11/23 20:47 joanna lisinopril AdvReac Cough Verified 10/11/23 20:47 Review of Systems ROS Statement: Those systems with pertinent positive or pertinent negative responses have been documented in the HPI. ROS Other: All systems not noted in ROS Statement are negative. Past Medical History Past Medical History: Diabetes Mellitus, GERD/Reflux, Memory Impairment, Osteoarthritis (OA), Pneumonia, Prostate Disorder, Sleep Apnea/CPAP/BIPAP, Thyroid Disorder, Vascular Disorder Additional Past Medical History / Comment(s): PITUITARY TUMOR removed x 2, has some short term memory since tumor, saw cyst on liver, asthma as child, gout, chronic back pain, lower legs discolored( stated poor circulation), cataracts, Aorotic Aneurysm- watching. History of Any Multi-Drug Resistant Organisms: None Reported Past Surgical History: Hernia Repair, Orthopedic Surgery Additional Past Surgical History / Comment(s): sx to removed pituitary tumor-it grew back and in 1999 had it removed again, also had gamma knife radiation tx, deviated septum repair, nasal- sx-removed benign tumor, metal removed from rt eye, colonoscopy, L knee replacement., PAIN CLINIC PROCEDURES Past Anesthesia/Blood Transfusion Reactions: Postoperative Nausea & Vomiting (PONV) Additional Past Anesthesia/Blood Transfusion Reaction / Comment(s): "sensative to opiod based narcotics" never received any blood. Past Psychological History: No Psychological Hx Reported Smoking Status: Former smoker Past Alcohol Use History: None Reported Past Drug Use History: None Reported - Past Family History Mother Family Medical History: Hypertension, Myocardial Infarction (IA) Additional Family Medical History / Comment(s): 13 people on mom's side of family from [place] Father Family Medical History: Myocardial Infarction ([place]) Additional Family Medical History / Comment(s): grandfather CAD, from blood clot. General Exam Limitations: no limitations General appearance: alert, in no apparent distress Head exam: Present: atraumatic, normocephalic, normal inspection Eye exam: Present: normal appearance, PERRL, EOMI. Absent: scleral icterus, conjunctival injection, periorbital swelling ENT exam: Present: normal exam, mucous membranes moist Neck exam: Present: normal inspection. Absent: tenderness, meningismus, lymphadenopathy Respiratory exam: Present: normal lung sounds bilaterally. Absent: respiratory distress, wheezes, rales, rhonchi, stridor Cardiovascular Exam: Present: regular rate, normal rhythm, normal heart sounds. Absent: systolic murmur, diastolic murmur, rubs, gallop, clicks GI/Abdominal exam: Present: soft, normal bowel sounds. Absent: distended, tenderness, guarding, rebound, rigid Extremities exam: Present: normal inspection, full ROM, normal capillary refill. Absent: tenderness, pedal edema, joint swelling, calf tenderness Back exam: Present: normal inspection Neurological exam: Present: alert, oriented X3, CN II-XII intact Psychiatric exam: Present: normal affect, normal mood Skin exam: Present: warm, dry, intact, normal color. Absent: rash Course Vital Signs 10/11/23 10/11/23 10/11/23 20:44 20:59 22:47 Temperature 96.3 F L Pulse Rate 114 H 68 58 L Respiratory 24 18 16 Rate Blood Pressure 156/88 153/98 129/82 O2 Sat by Pulse 96 93 L 94 L Oximetry - Reevaluation(s) Reevaluation #1: 10/11/23 23:33 Medical records reviewed Reevaluation #2: 10/11/23 23:33 Patient symptoms are improving Reevaluation #3: 10/11/23 23:33 Patient informed of results and questions answered Reevaluation #4: Was pt. sent in by a medical professional or institution (, PA, [employer], urgent care, hospital, or penitentiary...) When possible be specific @ -no Did you speak to anyone other than the patient for history (EMS, parent, family, police, friend...)? What history was obtained from this source @ -no Did you review nursing and triage notes (agree or disagree)? Why? @ -agree Are old charts reviewed (outside hosp., previous admission, EMS record, old EKG, old radiological studies, urgent care reports/EKG's, penitentiary records)? Report findings @ -yes Differential Diagnosis (chest pain, altered mental status, abdominal pain women, abdominal pain men, vaginal bleeding, weakness, fever, dyspnea, syncope, headache, dizziness, GI bleed, back pain, seizure, CVA, palpatations, mental health, musculoskeletal)? @ -prior EKG interpreted by me (3pts min.). @ -yes X-rays interpreted by me (1pt min.). @ -yes negative for acute disease CT interpreted by me (1pt min.). @ -no U/S interpreted by me (1pt. min.). @ -no What testing was considered but not performed or refused? (CT, X-rays, U/S, labs)? Why? @ -none What meds were considered but not given or refused? Why? @ -none Did you discuss the management of the patient with other professionals (kristi erazo i.e. , PA, [employer], lab, RT, psych nurse, foster care social worker, credit risk manager, teacher, chief science officer, case technician)? Give summary @ -no Was smoking cessation discussed for >3mins.? @ -no Was critical care preformed (if so, how long)? @ -no Were there social determinants of health that impacted care today? How? (Homelessness, low income, unemployed, alcoholism, drug addiction, transportation, low edu. Level, literacy, decrease access to med. care, snf, rehab)? @ -none Was there de-escalation of care discussed even if they declined (Discuss DNR or withdrawal of care, Hospice)? DNR status @ -no What co-morbidities impacted this encounter? (DM, HTN, Smoking, COPD, CAD, Cancer, CVA, ARF, Chemo, Hep., AIDS, mental health diagnosis, sleep apnea, morbid obesity)? @ -none Was patient admitted / discharged? Hospital course, mention meds given and route, prescriptions, significant lab abnormalities, going to OR and other pertinent info. @ - Undiagnosed new problem with uncertain prognosis? @ -no Drug Therapy requiring intensive monitoring for toxicity (Heparin, Nitro, Insulin, Cardizem)? @ -no Were any procedures done? @ -no Diagnosis/symptom? @ - Acute, or Chronic, or Acute on Chronic? @ -Acute Uncomplicated (without systemic symptoms) or Complicated (systemic symptoms)? @ -Complicated Side effects of treatment? @ -no Exacerbation, Progression, or Severe Exacerbation? @ -exacerbation Poses a threat to life or bodily function? How? (Chest pain, USA, IA, pneumonia, PE, COPD, DKA, ARF, appy, cholecystitis, CVA, Diverticulitis, Homicidal, Suicidal, threat to staff... and all critical care pts) @ -yes Reevaluation #5: Differential Dizziness: Benign paroxysmal positional Vertigo, Menieres disease, otitis media, acoustic neuroma, vertebrobasilar insufficiency, cerebellar stroke, encephalitis, hypovolemic, arrhythmia, coronary artery syndrome, anemia, this is not meant to be an all-inclusive list - Consultations Consultation #1: Miguel who agrees to admit this patient Medical Decision Making - Medical Decision Making 68 male to ER for evaluation of significant severe dizziness room spinning. Patient will be admitted for further evaluation and management, supportive care - Lab Data Result diagrams: 10/11/23 21:44 10/11/23 21:44 Lab Results 10/11/23 10/11/23 10/11/23 Range/Units 21:44 21:44 21:44 WBC 11.0 H (3.8-10.6) k/uL RBC 4.77 (4.30-5.90) m/uL Hgb 15.7 (13.0-17.5) gm/dL Hct 44.0 (39.0-53.0) % MCV 92.2 (80.0-100.0) fL MCH 32.9 (25.0-35.0) pg MCHC 35.7 (31.0-37.0) g/dL RDW 11.7 (11.5-15.5) % Plt Count 214 (150-450) k/uL MPV 7.3 Neutrophils % 69 % Lymphocytes % 20 % Monocytes % 6 % Eosinophils % 1 % Basophils % 1 % Neutrophils # 7.6 (1.3-7.7) k/uL Lymphocytes # 2.2 (1.0-4.8) k/uL Monocytes # 0.7 (0-1.0) k/uL Eosinophils # 0.1 (0-0.7) k/uL Basophils # 0.1 (0-0.2) k/uL Sodium 138 (137-145) mmol/L Potassium 3.9 (3.5-5.1) mmol/L Chloride 103 (98-107) mmol/L Carbon Dioxide 21 L (22-30) mmol/L Anion Gap 14 mmol/L BUN 20 (9-20) mg/dL Creatinine 1.01 (0.66-1.25) mg/dL Est GFR (CKD-EPI)AfAm 88 (>60 ml/min/1.73 sqM) Est GFR (CKD-EPI)NonAf 76 (>60 ml/min/1.73 sqM) Glucose 139 H (74-99) mg/dL Plasma Lactic Acid Too 4.3 H* (0.7-2.0) mmol/L Calcium 9.2 (8.4-10.2) mg/dL Phosphorus 3.4 (2.5-4.5) mg/dL Magnesium 2.0 (1.6-2.3) mg/dL Total Bilirubin 0.8 (0.2-1.3) mg/dL AST 23 (17-59) U/L ALT 24 (4-49) U/L Alkaline Phosphatase 89 (38-126) U/L Total Protein 7.3 (6.3-8.2) g/dL Albumin 4.8 (3.5-5.0) g/dL Lipase 83 (23-300) U/L - EKG Data -: EKG Interpreted by Me - Radiology Data Radiology results: report reviewed (CT brain is negative for acute disease), image reviewed Disposition Clinical Impression: Nausea and vomiting, Dehydration, Gastroenteritis, Adrenal insufficiency Disposition: ADMITTED IP TO THIS HOSP Condition: Fair Is patient prescribed a controlled substance at d/c from ED?: No Referrals: [facility],Clinic [Primary Care Provider] - 1-2 days Time of Disposition: 23:30
[2023-10-11] MEDS: SODIUM CHLORIDE 0.9% 1,000 ML IV STA ×2 (21:34)
[2023-10-11] MEDS: SODIUM CHLORIDE 0.9% 500 ML 500 ML IV STA (21:35)
[2023-10-11] MEDS: ONDANSETRON 4 MG/2 ML VIAL IVP STA (21:39)
[2023-10-11] MEDS: diphenhydrAMINE 50 MG/ML 1 ML VIAL IVP STA (21:41)
[2023-10-11] MEDS: LORazepam 2 MG/ML INJ IV STA (21:42)
[2023-10-11 21:59] LABS: Basophils # (A) 0.1 k/uL (0-0.2); Basophils % (A) 1 %; Eosinophils # (A) 0.1 k/uL (0-0.7); Eosinophils % (A) 1 %; HGB 15.7 gm/dL (13.0-17.5); Lymphocytes # (A) 2.2 k/uL (1.0-4.8); Lymphocytes % (A) 20 %; MCH 32.9 pg (25.0-35.0); MCHC 35.7 g/dL (31.0-37.0); MCV 92.2 fL (80.0-100.0); Mean Platelet Volume 7.3; Monocytes # (A) 0.7 k/uL (0-1.0); Monocytes % (A) 6 %; Neutrophils # (A) 7.6 k/uL (1.3-7.7); Neutrophils % (A) 69 %; Platelet Count 214 k/uL (150-450); RBC 4.77 m/uL (4.30-5.90); RDW 11.7 % (11.5-15.5)
[2023-10-11] MEDS: MORPHINE SULFATE 4 MG/ML SYRINGE IV STA (22:11)
[2023-10-11] MEDS: DEXAMETHASONE SOD PHOSPHATE 10 MG/ML 1 ML VIAL IVP STA (22:15)
[2023-10-11 22:17] LABS: ALT 24 U/L (4-49); AST 23 U/L (17-59); African American GFR (CKD) 88 (>60 ml/min/1.73 sqM); Albumin 4.8 g/dL (3.5-5.0); Alkaline Phosphatase 89 U/L (38-126); Anion Gap 14 mmol/L; Blood Urea Nitrogen 20 mg/dL (9-20); Calcium 9.2 mg/dL (8.4-10.2); Carbon Dioxide 21 mmol/L (22-30); Chloride 103 mmol/L (98-107); Glucose 139 mg/dL (74-99); Lipase 83 U/L (23-300); Non-African American GFR(CKD) 76 (>60 ml/min/1.73 sqM); Phosphorus 3.4 mg/dL (2.5-4.5); Potassium 3.9 mmol/L (3.5-5.1); Sodium 138 mmol/L (137-145); Total Bilirubin 0.8 mg/dL (0.2-1.3); Total Protein 7.3 g/dL (6.3-8.2)
[2023-10-11] MEDS: HYDROmorphone 1 MG/ML 1 ML SYRINGE IVP STA (22:46)
[2023-10-11] MEDS ORDERED: ONDANSETRON 4 MG/2 ML VIAL IVP PRN (23:31)
[2023-10-11] MEDS ORDERED: NALOXONE 0.4 MG/ML 1 ML VIAL IV PRN (23:31)
[2023-10-11] MEDS ORDERED: HYDROmorphone 1 MG/ML 1 ML SYRINGE IVP PRN (23:31)
[2023-10-11] MEDS: SODIUM CHLORIDE 0.9% 1,000 ML IV SCH (23:57)
[2023-10-11] MEDS: HYDROCORTISONE SUCCINATE 100 MG/2 ML VIAL IV STA (23:57)
--- NOTE | 2023-10-12 00:18 | CT ---
EXAMINATION TYPE: CT brain wo con DATE OF EXAM: 10/12/2023 HISTORY: Patient brought in by for nausea/vomiting and passing out. hx brain tumor CT DLP: 1226.7 mGycm. Automated Exposure Control for Dose Reduction was Utilized. TECHNIQUE: CT scan of the head is performed without contrast. COMPARISON: CT brain September 04, 2016. FINDINGS: There is no acute intracranial hemorrhage or midline shift identified. There is mild diff use ventricular and sulcal prominence redemonstrated. Cardenas-white matter differentiation fairly well p reserved. Large expansile sellar mass near axial image 21 has similar appearance to prior study with suprasellar extension extending anteriorly. The globes are intact and the visualized sinuses are radha ar. IMPRESSION: No acute intracranial hemorrhage or midline shift. 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
--- NOTE | 2023-10-12 03:59 | P.HPIM ---
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 Barron), hypothyroidism, hypertension, hyperlipidemia who presents to the emergency room with complaints of nausea, vomiting, and dizziness. Patient reports that his symptoms started this evening after a few stressful days where he was taking care of a friend from [place]. Patient notes that his adrenal insufficiency is usually very well- controlled and that his last adrenal crisis was roughly 5 years ago during a stressful time as well. Notes that his symptoms today are typical of his crises. Reports not missing any doses of steroids at home. Does report feeling significantly better after having received additional steroids in the emergency room. Reports a significant improvement in his nausea, vomiting, and dizziness which she described as vertigo. Denies experiencing chest discomfort, shortness of breath, fever, chills, cough, abdominal pain, diarrhea. CT brain in the emergency room revealed a stable sellar mass with no other acute abnormalities. Laboratory evaluation was remarkable for lactic acid of 1.3, glucose 139, and WBC count 11.0. ED documentation reviewed and case discussed with ED provider. Review of systems: Pertinent positives and negatives as discussed in HPI, a complete review of systems was performed and all other systems are negative. Physical examination: Vital signs reviewed General: non toxic, no distress, appears at stated age, morbidly obese Derm: no unusual rashes/lesions, warm Head: atraumatic, normocephalic, symmetric Eyes: EOMI, no lid lag, anicteric sclera, pupils equal round reactive to light ENT: Nose and ears atraumatic Neck: No cervical lymphadenopathy, trachea midline, supple Mouth: no lip lesion, mucus membranes moist Cardiovascular: S1S2 reg, no murmur, positive dorsalis pedis pulse bilateral, no edema Lungs: CTA bilateral, no rhonchi, no rales, no accessory muscle use Abdominal: soft, nontender to palpation, no guarding Ext: muscle strength 5 out of 5 in all 4 extremities grossly, no gross muscle atrophy, no contractures, Neuro: CN II-XI grossly intact, no gross focal neuro deficits Psych: Alert, oriented, appropriate affect Assessment: Addisonian crisis Lactic acidosis, likely due to above with persistent nausea and vomiting Leukocytosis, suspect reactive with no other signs of active infection at this time Chronic conditions: Hypothyroidism, hypertension, hyperlipidemia Imaging: CT brain in the emergency room revealed a stable sellar mass with no other acute abnormalities. Data Review: Laboratory evaluation was remarkable for lactic acid of 1.3, glucose 139, and WBC count 11.0. Plan: Status post hydrocortisone 100 mg IV in the emergency room Continue with hydrocortisone 50 mg every 6 hourly for now Continue IV fluids with normal saline 130 cc/h Monitor lactic acid levels for resolution Resume remaining home medications C/w Zofran prn DVT prophylaxis: Lovenox subcu The patient is admitted with an anticipated less than 2 midnight stay for evaluation of lactic acidosis CODE STATUS: Full Code Discussed with: Patient Anticipated discharge place: Home Past Medical History Past Medical History: Diabetes Mellitus, GERD/Reflux, Memory Impairment, Osteoarthritis (OA), Pneumonia, Prostate Disorder, Sleep Apnea/CPAP/BIPAP, Thyroid Disorder, Vascular Disorder Additional Past Medical History / Comment(s): PITUITARY TUMOR removed x 2, has some short term memory since tumor, saw cyst on liver, asthma as child, gout, chronic back pain, lower legs discolored( stated poor circulation), cataracts, Aorotic Aneurysm- watching. History of Any Multi-Drug Resistant Organisms: None Reported Past Surgical History: Hernia Repair, Orthopedic Surgery Additional Past Surgical History / Comment(s): sx to removed pituitary tumor-it grew back and in 1999 had it removed again, also had gamma knife radiation tx, deviated septum repair, nasal- sx-removed benign tumor, metal removed from rt eye, colonoscopy, L knee replacement., PAIN CLINIC PROCEDURES Past Anesthesia/Blood Transfusion Reactions: Postoperative Nausea & Vomiting (PONV) Additional Past Anesthesia/Blood Transfusion Reaction / Comment(s): "sensative to opiod based narcotics" never received any blood. Past Psychological History: No Psychological Hx Reported Smoking Status: Former smoker Past Alcohol Use History: None Reported Past Drug Use History: None Reported - Past Family History Mother Family Medical History: Hypertension, Myocardial Infarction (DC) Additional Family Medical History / Comment(s): 13 people on mom's side of family from [place] Father Family Medical History: Myocardial Infarction (DC) Additional Family Medical History / Comment(s): grandfather CAD, from blood clot. Medications and Allergies Home Medications Medication Instructions Recorded Confirmed Type Testosterone Cypionate 200 mg IM Q14D 09/04/16 10/09/23 History [Depo-Testosterone] Furosemide [Lasix] 40 mg PO DAILY 11/16/20 10/09/23 History Hydrocortisone [Cortef] 20 mg PO DAILY 11/16/20 10/09/23 History Omeprazole 20 mg PO DAILY 11/16/20 10/09/23 History Cholecalciferol [Vitamin D3 (25 50 mcg PO DAILY 12/24/20 10/09/23 History Mcg = 1000 Iu)] Sildenafil Citrate [Viagra] 50 mg PO DAILY PRN 12/24/20 10/09/23 History Levothyroxine Sodium [Synthroid] 150 mcg PO DAILY 03/27/22 10/09/23 History Losartan [Cozaar] 50 mg PO DAILY 03/27/22 10/09/23 History Atorvastatin [Lipitor] 20 mg PO HS 08/03/23 10/09/23 History Celecoxib [Celebrex] 200 mg PO DAILY 08/03/23 10/09/23 History Meclizine [Antivert] 25 mg PO DAILY 08/03/23 10/09/23 History Zinc Gluconate [Zinc] 50 mg PO DAILY 08/03/23 10/09/23 History metFORMIN HCL 500 mg PO BID 08/03/23 10/09/23 History Cyclobenzaprine [Flexeril] 10 mg PO HS 08/07/23 10/09/23 History Allergies Allergy/AdvReac Type Severity Reaction Status Date / Time morphine Allergy dizzy, Verified 10/11/23 20:47 throat swelling atorvastatin [From Lipitor] AdvReac muscle pain Verified 10/11/23 20:47 codeine AdvReac Dizzy/Heada Verified 10/11/23 20:47 joanna lisinopril AdvReac Cough Verified 10/11/23 20:47 Physical Exam Vitals: Vital Signs Temp Pulse Resp BP Pulse Ox 10/12/23 02:05 69 18 135/85 95 10/11/23 22:47 58 L 16 129/82 94 L 10/11/23 20:59 68 18 153/98 93 L 10/11/23 20:44 96.3 F L 114 H 24 156/88 96 Intake and Output 10/11/23 10/11/23 10/12/23 14:59 22:59 06:59 Other: Weight 149.685 kg Results CBC & Chem 7: 10/11/23 21:44 10/11/23 21:44 Labs: Abnormal Lab Results - Last 24 Hours (Table) 10/11/23 10/11/23 10/11/23 Range/Units 21:44 21:44 21:44 WBC 11.0 H (3.8-10.6) k/uL Carbon Dioxide 21 L (22-30) mmol/L Glucose 139 H (74-99) mg/dL Plasma Lactic Acid Too 4.3 H* (0.7-2.0) mmol/L 10/12/23 Range/Units 02:01 WBC (3.8-10.6) k/uL Carbon Dioxide (22-30) mmol/L Glucose (74-99) mg/dL Plasma Lactic Acid Too 2.2 H* (0.7-2.0) mmol/L
[2023-10-12 04:58] LABS: Basophils % (A) 0 %; Eosinophils % (A) 0 %; HCT 42.2 % (39.0-53.0); HGB 15.1 gm/dL (13.0-17.5); Lymphocytes # (A) 0.7 k/uL (1.0-4.8); Lymphocytes % (A) 9 %; MCH 33.4 pg (25.0-35.0); MCHC 35.7 g/dL (31.0-37.0); MCV 93.4 fL (80.0-100.0); Mean Platelet Volume 6.9; Monocytes # (A) 0.2 k/uL (0-1.0); Monocytes % (A) 2 %; Neutrophils # (A) 6.8 k/uL (1.3-7.7); Neutrophils % (A) 88 %; Platelet Count 175 k/uL (150-450); RBC 4.52 m/uL (4.30-5.90); RDW 11.8 % (11.5-15.5); WBC 7.7 k/uL (3.8-10.6)
[2023-10-12 05:10] LABS: ALT 22 U/L (4-49); AST 21 U/L (17-59); African American GFR (CKD) >90 (>60 ml/min/1.73 sqM); Albumin 4.2 g/dL (3.5-5.0); Alkaline Phosphatase 65 U/L (38-126); Anion Gap 7 mmol/L; Blood Urea Nitrogen 19 mg/dL (9-20); Calcium 8.7 mg/dL (8.4-10.2); Carbon Dioxide 25 mmol/L (22-30); Chloride 105 mmol/L (98-107); Glucose 179 mg/dL (74-99); Non-African American GFR(CKD) 89 (>60 ml/min/1.73 sqM); Phosphorus 3.7 mg/dL (2.5-4.5); Potassium 4.6 mmol/L (3.5-5.1); Sodium 137 mmol/L (137-145); Total Bilirubin 0.9 mg/dL (0.2-1.3); Total Protein 6.5 g/dL (6.3-8.2)
[2023-10-12] MEDS: HYDROCORTISONE SUCCINATE 100 MG/2 ML VIAL IV SCH (06:08)
[2023-10-12 08:16] LABS: Glucose,Whole Blood 165 mg/dL (70-110)
[2023-10-12] MEDS: INSULIN ASPART (NovoLOG) 100 UNIT/ML VIAL SQ SCH (08:25)
[2023-10-12] MEDS: ENOXAPARIN 40 MG/0.4 ML SYRINGE SQ SCH (08:26)
[2023-10-12] MEDS: PANTOPRAZOLE 40 MG/10 ML VIAL IV SCH (08:26)
[2023-10-12 12:10] LABS: Glucose,Whole Blood 169 mg/dL (70-110)
[2023-10-12] MEDS: CYCLOBENZAPRINE 10 MG TAB PO SCH (16:48)
[2023-10-12 17:10] LABS: Glucose,Whole Blood 183 mg/dL (70-110)
[2023-10-12 20:38] LABS: Glucose,Whole Blood 145 mg/dL (70-110)
[2023-10-12] MEDS: ATORVASTATIN 20 MG TAB PO SCH (21:53)
[2023-10-12] MEDS: CHOLECALCIFEROL 25 MCG (1000 IU) TABLET PO SCH (21:53)
[2023-10-12 22:49] VITALS: RESP 18
[2023-10-13] MEDS: PANTOPRAZOLE 40 MG TABLET PO SCH (05:31)
[2023-10-13] MEDS: LEVOTHYROXINE 75 MCG TAB PO SCH (05:31)
[2023-10-13 06:06] LABS: Glucose,Whole Blood 165 mg/dL (70-110)
[2023-10-13 08:09] VITALS: BP 146/84; PULSE 66; TEMP 97.9
[2023-10-13] MEDS: LOSARTAN 50 MG TAB PO SCH (08:48)
--- NOTE | 2023-10-13 10:34 | P.DS ---
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 Barron), hypothyroidism, hypertension, hyperlipidemia who presents to the emergency room with complaints of nausea, vomiting, and dizziness. Patient reports that his symptoms started this evening after a few stressful days where he was taking care of a friend from [place]. Patient notes that his adrenal insufficiency is usually very well-controlled and that his last adrenal crisis was roughly 5 years ago during a stressful time as well. Notes that his symptoms today are typical of his crises. Reports not missing any doses of steroids at home. CT brain in the emergency room revealed a stable sellar mass with no other acute abnormalities. Laboratory evaluation was remarkable for lactic acid of 1.3, glucose 139, and WBC count 11.0. Patient was started on IV hydration and Hydrocortisone 50 mg IV Q6H. Lactic acid normalized and leukocytosis resolved with IV hydration. 10/12 Patient was seen and examined. No more nausea or vomiting. Lightheadedness resolved. Feeling back to baseline. Plans on discharge home today on home medications. He does have an appointment with Dr. Barron on 10/17. General: non toxic, no distress, appears at stated age Derm: warm, dry Head: atraumatic, normocephalic, symmetric Eyes: EOMI, no lid lag, anicteric sclera Mouth: no lip lesion, mucus membranes moist Cardiovascular: Good distal perfusion in all 4 extremities, Normal S1 S2. No murmurs. Lungs: Breathing comfortably, no accessory muscle use, CTA bilaterally Ext: no gross muscle atrophy, no edema, no contractures Neuro: no focal neuro deficits Psych: Alert, oriented, appropriate affect Discharge Diagnosis: Addisonian crisis Lactic acidosis, likely due to above with persistent nausea and vomiting Leukocytosis, suspect reactive with no other signs of active infection at this time Chronic conditions: Hypothyroidism, hypertension, hyperlipidemia This complex discharge took 35 minutes to complete. Patient Condition at Discharge: Stable Plan - Discharge Summary Discharge Rx Participant: No New Discharge Prescriptions: Continue Testosterone Cypionate [Depo-Testosterone] 200 mg IM Q14D Hydrocortisone [Cortef] 20 mg PO BID Cholecalciferol [Vitamin D3 (25 Mcg = 1000 Iu)] 25 mcg PO BID Levothyroxine Sodium [Synthroid] 150 mcg PO DAILY Celecoxib [CeleBREX] 200 mg PO BID metFORMIN HCL 1,000 mg PO BID Carboxymethylcellulose Sodium [Refresh Tears] 1 drop BOTH EYES BID Ketotifen 0.025% Ophth Soln [Zaditor] 1 drop BOTH EYES BID Lidocaine 5% Patch [Lidoderm 5% Patch] 1 patch TOPICAL DAILY PRN PRN Reason: Pain Omeprazole 20 mg PO DAILY Sildenafil Citrate [Viagra] 100 mg PO DAILY PRN PRN Reason: E.D. Atorvastatin [Lipitor] 20 mg PO HS Cyclobenzaprine [Flexeril] 10 mg PO TID Albuterol Sulfate [Albuterol Sulfate Hfa] 1 puff PO RT-Q6H PRN PRN Reason: Shortness Of Breath Losartan Potassium [Cozaar] 100 mg PO DAILY Discharge Medication List Testosterone Cypionate [Depo-Testosterone] 200 mg IM Q14D 09/04/16 [History] Hydrocortisone [Cortef] 20 mg PO BID 11/16/20 [History] Omeprazole 20 mg PO DAILY 11/16/20 [History] Cholecalciferol [Vitamin D3 (25 Mcg = 1000 Iu)] 25 mcg PO BID 12/24/20 [History] Sildenafil Citrate [Viagra] 100 mg PO DAILY PRN 12/24/20 [History] Levothyroxine Sodium [Synthroid] 150 mcg PO DAILY 03/27/22 [History] Atorvastatin [Lipitor] 20 mg PO HS 08/03/23 [History] Celecoxib [CeleBREX] 200 mg PO BID 08/03/23 [History] metFORMIN HCL 1,000 mg PO BID 08/03/23 [History] Cyclobenzaprine [Flexeril] 10 mg PO TID 08/07/23 [History] Albuterol Sulfate [Albuterol Sulfate Hfa] 1 puff PO RT-Q6H PRN 10/12/23 [History] Carboxymethylcellulose Sodium [Refresh Tears] 1 drop BOTH EYES BID 10/12/23 [History] Ketotifen 0.025% Ophth Soln [Zaditor] 1 drop BOTH EYES BID 10/12/23 [History] Lidocaine 5% Patch [Lidoderm 5% Patch] 1 patch TOPICAL DAILY PRN 10/12/23 [History] Losartan Potassium [Cozaar] 100 mg PO DAILY 10/12/23 [History] Follow up Appointment(s)/Referral(s): Tram Barron [STAFF PHYSICIAN] - 1 Week [facility] [Primary Care Provider] - 1-2 days Discharge Disposition: HOME SELF-CARE
== END 2023-10-13 10:35 | disposition home or self-care (01) ==
LOC: EC 20:38 → 6NMEDSUR 23:31
PROVIDERS: ADMIT Internal Medicine; ATTEND Internal Medicine
DX: E27.2 Addisonian crisis (principal); E87.20 Acidosis, unspecified; K52.9 Noninfective gastroenteritis and colitis, unspecified; E86.0 Dehydration; K21.9 Gastro-esophageal reflux disease without esophagitis; G47.30 Sleep apnea, unspecified; E11.9 Type 2 diabetes mellitus without complications; E03.9 Hypothyroidism, unspecified; I10 Essential (primary) hypertension; E78.5 Hyperlipidemia, unspecified; Z87.891 Personal history of nicotine dependence; Z79.890 Hormone replacement therapy; Z79.899 Other long term (current) drug therapy; Z79.1 Long term (current) use of non-steroidal anti-inflammatories (NSAID); Z79.84 Long term (current) use of oral hypoglycemic drugs; Z88.5 Allergy status to narcotic agent
CPT/HCPCS: 96376 ×3; 96372 ×2; 96374; 96375 ×2; 99285; 36415; 80053 ×2; 82533; 83605 ×2; 83690; 83735 ×2; 84100 ×2; 85025 ×2; 70450; G0378 ×3; J2060; J1200; J1100; J1720 ×3; J2405; J1650 ×2; C9113

== ENCOUNTER → 2023-10-24 | Outpatient (CLI) | payer OTHER ==
[2023-10-24 09:04] VITALS: BP 162/94; PULSE 77; RESP 15; TEMP 98.6
--- NOTE | 2023-10-24 14:36 | P.PAINPG ---
PQRS Measure Charge Sheet Comment: HISTORY OF PRESENT ILLNESS: A 68 yr old male presents today w severe and chronic LBP x 50 yrs secondary to DDD, spondylosis and facet arthropathy without myelopathy for evaluation s/p GAMA L5-S1 #2. Pt states he experienced 100 % pain relief x 2 wks s/p procedure. Pt states pain level is provoked at 1 /10 in intensity, constant, localized in the lower lumbar spine, predominantly axial, stabbing in character w occasional shooting pain towards the R hip and LE. Pain is provoked by walking/ standing for periods of 20 min or more. Pain is alleviated by PT x 6 wks in May 2023, medications , repositioning and rest. Oswestry axial pain score at 30. Interventional procedures include GAMA L5-S1 x2 Medications include Flexeril, Celebrex, Tyl REVIEW OF ORGAN SYSTEMS: CONSTITUTIONAL: No fevers or chills. No recent weight loss. NEUROLOGICAL: + numbness and tingling along the distal extremities. No seizure disorders or headaches. MUSCULOSKELETAL: + pain PSYCHIATRIC: Denies current depression or suicidal thoughts. Physical Examinations : Constitutional : Cooperative , not in acute distress . Neurologic : Cranial nerve II to XII intact. No focal neurological deficits. Psychiatric : alert & oriented x 3. Matching mood & appropriate affect. Judgment & insight intact. Musculoskeletal : Cervical Spine Motor strength in the deltoid and biceps: Normal right side. Normal Left side Motor strength biceps and the wrist extensors: Normal right side . Normal left side Motor strength in the triceps muscle: Normal right side. Normal left side Deep tendon reflexes: Normal at the biceps. Normal at Brachioradialis. Normal at triceps Vertebral body tenderness to deep palpation over Cervical facet loading test: positive bilaterally Spurling test: positive bilaterally Neck distraction test: positive bilaterally Julissa sign: positive bilaterally Lumbar spine Motor strength lower extremities ,thigh and legs 5/5 Right side , 5/5 Left side Deep tendon reflexes : Normal Knee Jerk. Normal Ankle Jerk Vertebral body tenderness over L5 Garcia Test positive Lumbar facet Loading Test: positive Right / positive Left Range of motion of the lumbar spine Flexion 30 degrees, extension 10 degrees Straight Leg Raise test: Left/ Right positive at < 35 degrees Osmin test: positive right / positive left. Severe tenderness over the Sacroiliac joint on the Right / Left sides Gaenslen test: positive bilaterally Seated flexion test: positive bilaterally. Sacral spine : Severe tenderness over the Sacroiliac joint: right side / left side Range of motion: Flexion of the lumbar spine <60 degrees Range of motion: Extension of the lumbar spine <20 degrees Gaenslen's Test positive Osmin test: positive right side / left side Thigh Thrust Test Sacral Thrust Test Imaging: MRI noncontrast of the lumbar spine from 03/16/23 reviewed Assessment/ Plan : Lumbar DDD Will manage residual pain an d may RTC on an as needed basis. All questions answered. I have spent greater than 30 minutes on patient care today. Dr Agosto was available by phone for the evaluation of this patient. The time was used to review the medical records including relevant urine studies and Prescription history (MAPs), review of the available imaging, evaluation and examination of the patient, coordination of care with the medical staff and if applicable referring physicians, as well as creation of the medical record PQRS Narrative: Smoking Status Former smoker Hx Alcohol Use (MH) No Home Medications: Ambulatory Orders Testosterone Cypionate [Depo-Testosterone] 200 mg IM Q14D 09/04/16 Hydrocortisone [Cortef] 20 mg PO BID 11/16/20 Omeprazole 20 mg PO DAILY 11/16/20 Cholecalciferol [Vitamin D3 (25 Mcg = 1000 Iu)] 25 mcg PO BID 12/24/20 Sildenafil Citrate [Viagra] 100 mg PO DAILY PRN 12/24/20 Levothyroxine Sodium [Synthroid] 150 mcg PO DAILY 03/27/22 Atorvastatin [Lipitor] 20 mg PO HS 08/03/23 Celecoxib [CeleBREX] 200 mg PO BID 08/03/23 metFORMIN HCL 1,000 mg PO BID 08/03/23 Cyclobenzaprine [Flexeril] 10 mg PO TID 08/07/23 Albuterol Sulfate [Albuterol Sulfate Hfa] 1 puff PO RT-Q6H PRN 10/12/23 Carboxymethylcellulose Sodium [Refresh Tears] 1 drop BOTH EYES BID 10/12/23 Ketotifen 0.025% Ophth Soln [Zaditor] 1 drop BOTH EYES BID 10/12/23 Lidocaine 5% Patch [Lidoderm 5% Patch] 1 patch TOPICAL DAILY PRN 10/12/23 Losartan Potassium [Cozaar] 100 mg PO DAILY 10/12/23 Controlled Substance Measures - Controlled Substance Measures Is patient prescribed a controlled substance at discharge?: No
== END ==
LOC: PNWHC3 08:15
PROVIDERS: ATTEND Specialist
DX: M51.36 Other intervertebral disc degeneration, lumbar region (principal); Z88.8 Allergy status to other drugs, medicaments and biological substances; Z88.5 Allergy status to narcotic agent; Z88.1 Allergy status to other antibiotic agents; Z87.891 Personal history of nicotine dependence
CPT/HCPCS: 99211

== ENCOUNTER → 2023-11-26 | Outpatient (CLI) | payer OTHER ==
[2023-11-26 14:23] LABS: HCT 39.3 % (39.6-50.0); HGB 14.1 g/dL (13.0-17.0); MCH 33.1 pg (27.0-32.0); MCHC 35.9 g/dL (32.0-37.0); MCV 92.3 FL (80.0-97.0); Mean Platelet Volume 9.6 FL (9.5-12.2); NRBC Per 100 WBC 0 X 10*3/uL (0.00-0.01); Platelet Count 182 X 10*3/uL (140-440); RBC 4.26 X 10*6/uL (4.40-5.60); RDW 11.6 % (11.5-14.5)
[2023-11-26 15:24] LABS: ALT 27 U/L (10-49); AST 21 U/L (14-35); Albumin 4.3 g/dL (3.8-4.9); Albumin/Globulin Ratio 2.53 Ratio (1.60-3.17); Alkaline Phosphatase 84 U/L (41-126); Blood Urea Nitrogen 16.5 mg/dL (9.0-27.0); Calcium 9.4 mg/dL (8.7-10.3); Carbon Dioxide 26.3 mmol/L (21.6-31.8); Chloride 104 mmol/L (96-109); Globulin 1.7 g/dL (1.6-3.3); Glucose 222 mg/dL (70-110); Potassium 3.7 mmol/L (3.5-5.5); Sodium 141 mmol/L (135-145); T4, Free (Free Thyroxine) 1.32 ng/dL (0.80-1.80); Total Bilirubin 0.7 mg/dL (0.3-1.2)
== END | disposition home or self-care (01) ==
LOC: LABWHC1 08:59
PROVIDERS: ATTEND Internal Medicine Endocrinology, Diabetes & Metabolism
DX: D35.2 Benign neoplasm of pituitary gland (principal); E29.1 Testicular hypofunction
CPT/HCPCS: 36415; 80053; 82533; 84146; 84439; 84443; 85027

== ENCOUNTER → 2024-01-03 | Outpatient (CLI) | payer OTHER ==
[2024-01-03 11:41] VITALS: BP 150/82; PULSE 60; RESP 16; TEMP 98.5
--- NOTE | 2024-01-03 14:37 | P.PAINPG ---
PQRS Measure Charge Sheet Comment: HISTORY OF PRESENT ILLNESS: A 68 yr old male presents today w severe and chronic LBP x 50 yrs ( parachute jump injury) secondary to DDD, spondylosis and facet arthropathy without myelopathy for evaluation. Pt states pain level is provoked at 6 /10 in intensity, constant, localized in the lower lumbar spine, predominantly axial, stabbing in character w occasional shooting pain towards the R hip and LE. Pain is provoked by walking/ standing for periods of 20 min or more. Pain is alleviated by PT x 6 wks in May 2023, physician guided exercises 5 times weekly since May 2023, medications , repositioning and rest. Oswestry axial pain score at 28. Interventional procedures include GAMA L5-S1 x2 Medications include Flexeril, Celebrex, Tyl REVIEW OF ORGAN SYSTEMS: CONSTITUTIONAL: No fevers or chills. No recent weight loss. NEUROLOGICAL: + numbness and tingling along the distal extremities. No seizure disorders or headaches. MUSCULOSKELETAL: + pain PSYCHIATRIC: Denies current depression or suicidal thoug hts. Physical Examinations : Constitutional : Cooperative , not in acute distress . Neurologic : Cranial nerve II to XII intact. No focal neurological deficits. Psychiatric : alert & oriented x 3. Matching mood & appropriate affect. Judgment & insight intact. Musculoskeletal : Cervical Spine Motor strength in the deltoid and biceps: Normal right side. Normal Left side Motor strength biceps and the wrist extensors: Normal right side . Normal left side Motor strength in the triceps muscle: Normal right side. Normal left side Deep tendon reflexes: Normal at the biceps. Normal at Brachioradialis. Normal at triceps Vertebral body tenderness to deep palpation over Cervical facet loading test: positive bilaterally Spurling test: positive bilaterally Neck distraction test: positive bilaterally Julissa sign: positive bilaterally Lumbar spine Motor strength lower extremities ,thigh and legs 5/5 Right side , 5/5 Left side Deep tendon reflexes : Normal Knee Jerk. Normal Ankle Jerk Vertebral body tenderness over L5 Garcia Test positive Lumbar facet Loading Test: positive Right / positive Left Range of motion of the lumbar spine Flexion 30 degrees, extension 10 degrees Straight Leg Raise test: Left/ Right positive at < 35 degrees Osmin test: positive right / positive left. Severe tenderness over the Sacroiliac joint on the Right / Left sides Gaenslen test: positive bilaterally Seated flexion test: positive bilaterally. Sacral spine : Severe tenderness over the Sacroiliac joint: right side / left side Range of motion: Flexion of the lumbar spine <60 degrees Range of motion: Extension of the lumbar spine <20 degrees Gaenslen's Test positive Osmin test: positive right side / left side Thigh Thrust Test Sacral Thrust Test Imaging: MRI noncontrast of the lumbar spine from 03/16/23 reviewed Assessment/ Plan : Lumbar DDD Recommendation of GAMA L5-S1 #3. May need a series of injections for optimal pain relief. Risks, benefits of procedure discussed and pt verbalized understanding. Protocol for discontinuation/ continuation of medications annabelle procedure discuss ed. All questions answered. I have spent greater than 30 minutes on patient care today. Dr Agosto was available by phone for the evaluation of this patient. The time was used to review the medical records including relevant urine studies and Prescription history (MAPs), review of the available imaging, evaluation and examination of the patient, coordination of care with the medical staff and if applicable referring physicians, as well as creation of the medical record PQRS Narrative: Smoking Status Former smoker Hx Alcohol Use (MH) No Home Medications: Ambulatory Orders Testosterone Cypionate [Depo-Testosterone] 200 mg IM Q14D 09/04/16 Hydrocortisone [Cortef] 20 mg PO BID 11/16/20 Omeprazole 20 mg PO DAILY 11/16/20 Cholecalciferol [Vitamin D3 (25 Mcg = 1000 Iu)] 25 mcg PO BID 12/24/20 Sildenafil Citrate [Viagra] 100 mg PO DAILY PRN 12/24/20 Levothyroxine Sodium [Synthroid] 150 mcg PO DAILY 03/27/22 Atorvastatin [Lipitor] 40 mg PO HS 08/03/23 Celecoxib [CeleBREX] 200 mg PO BID 08/03/23 Cyclobenzaprine [Flexeril] 10 mg PO TID PRN 08/07/23 Albuterol Sulfate [Albuterol Sulfate Hfa] 1 puff PO RT-Q6H PRN 10/12/23 Carboxymethylcellulose Sodium [Refresh Tears] 1 drop BOTH EYES BID 10/12/23 Ketotifen 0.025% Ophth Soln [Zaditor] 1 drop BOTH EYES BID 10/12/23 Lidocaine 5% Patch [Lidoderm 5% Patch] 1 patch TOPICAL DAILY PRN 10/12/23 Losartan Potassium [Cozaar] 100 mg PO DAILY 10/12/23 Controlled Substance Measures - Controlled Substance Measures Is patient prescribed a controlled substance at discharge?: No
== END ==
LOC: PNWHC3 10:50
PROVIDERS: ATTEND Specialist
DX: M51.36 Other intervertebral disc degeneration, lumbar region (principal); M47.816 Spondylosis without myelopathy or radiculopathy, lumbar region; Z87.891 Personal history of nicotine dependence; Z88.5 Allergy status to narcotic agent; Z88.8 Allergy status to other drugs, medicaments and biological substances
CPT/HCPCS: 99211

== ENCOUNTER → 2024-01-11 | Outpatient (CLI) | payer OTHER ==
--- NOTE | 2024-01-14 19:05 | CT ---
EXAMINATION TYPE: CT chest wo con CT DLP: 705 mGycm, Automated exposure control for dose reduction was used. DATE OF EXAM: 01/11/2024 10:01 AM COMPARISON: CTA chest 01/23/2023. CLINICAL INDICATION:Male, 68 years old with history of I71.20 THORACIC AORTIC ANEURYSM; PHH, THORACIC AORTIC ANEURYSM TECHNIQUE: Multiple axial images were obtained through the chest without IV contrast. Lack of IV or o ral contrast limits evaluation of solid and hollow organ viscera. . Coronal and sagittal reformats re viewed. FINDINGS: LUNGS/ PLEURA: No pleural effusion, pneumothorax, focal consolidation. No suspicious pulmonary nodule or mass. AIRWAY: Patent and unremarkable.. HEART: Size within normal limits. No pericardial effusion. Mild coronary arterial calcifications.. MEDIASTINUM: No gross evidence of adenopathy. VASCULATURE: Prominent main and right pulmonary arteries again demonstrated suggesting underlying pu lmonary hypertension. Ascending aorta measures up to 3.9 cm which is stable from prior exam. The aort ic root measures up to 3.9 cm, previously 3.7 cm. Normal three-vessel origin from the aortic arch. Th e descending thoracic aorta measures up to 3.1 cm. No aneurysm extension into the descending aorta. N o evidence for intramural hematoma. Cannot assess for aortic injury due to lack of intravenous contra st. MUSCULOSKELETAL: No acute osseous abnormalities . Multilevel degenerative disc disease of the visuali zed thoracic spine. SOFT TISSUES/LYMPH NODES: Unremarkable. LOWER NECK: No significant findings. UPPER ABDOMEN: Subcentimeter hypodense focus within the posterior right hepatic lobe which is too sma ll characterize. The visualized liver is diffusely hypoattenuating consistent with steatosis. Small h iatal hernia. IMPRESSION: 1. Stable 3.9 cm aortic root and ascending aortic aneurysm. 2. Hepatic steatosis. 3. Small hiatal hernia.
== END | disposition home or self-care (01) ==
LOC: RADCTMAIN 09:41
PROVIDERS: ATTEND Surgery
DX: I71.21 Aneurysm of the ascending aorta, without rupture (principal); K76.0 Fatty (change of) liver, not elsewhere classified; K44.9 Diaphragmatic hernia without obstruction or gangrene
CPT/HCPCS: 71250

== ENCOUNTER 2024-01-17 11:32 | Day surgery (SDC) | payer OTHER ==
[2024-01-15 14:51] VITALS: BMI 42.4
[2024-01-17 13:02] LABS: Glucose,Whole Blood 107 mg/dL (70-110)
[2024-01-17 13:03] VITALS: TEMP 98
[2024-01-17] MEDS ORDERED: ROPIVACAINE 5MG/ML 20ML VIAL ONE (13:39)
[2024-01-17] MEDS ORDERED: IOPAMIDOL M300 15ML VIAL ONE (13:39)
[2024-01-17] MEDS ORDERED: methylPREDNISolone ACETATE 80 MG/ML 1 ML VIAL ONE (13:39)
--- NOTE | 2024-01-17 14:02 | P.PCN ---
Description of Procedure: PREOPERATIVE DIAGNOSIS: 1- Lumbar Degenerative Disc Diseases 2-Lumbar spondylosis with Facet arthropathy without myelopathy. 3-lumbar spinal stenosis POSTOPERATIVE DIAGNOSIS: 1-lumbar degenerative disc disease. 2-lumbar spondylosis with facet arthropathy without myelopathy. 3-lumbar spinal stenosis. PROCEDURE Injection of radio contrast material into L5-S1 interspace, interpretation of epidurogram, injection of steroid at L5-S1 epidural space under fluoroscopic guidance. ANESTHESIA: Lidocaine 1% subcutaneously. In OR continuous pulse ox, EKG, blood pressure and verbal communication was maintained with the patient. EBL: Minimal PROCEDURE INDICATION: Before the procedure were discussed with the patient detailed procedure, alternatives, complications including infection, bleeding, nerve damage, paralysis all of which could be permanent. Patient understands and all questions were answered. PROCEDURE DESCRIPTION : After getting consent, patient in OR in prone position. Back was prepped with chlorhexidine and draped in sterile fashion. After injecting 10 mL of 1% lidocaine subcutaneously, a 20-gauge Tuohy needle was introduced at L5-S1 interspace with loss of resistance technique using a syringe filled with air. Negative CSF, negative blood, negative paresthesia. Needle position was confirmed with AP and lateral view of the fluoroscope. After repeat negative aspiration 2 mL of Omnipaque 200 water soluble contrast was injected. Contrast was noted in the epidural space. No contrast was noted into intrathecal or intravascular space. After repeat negative aspiration 6 mL solution was injected intermittently which consists of 5 mL of preservative-free normal saline mixed with 1 mL of 80 mg Depo-Medrol. Needle was withdrawn intact. Skin was cleansed and Band-Aids was applied. DISPOSITION / PLANS: The patient tolerated the procedure well. No complication. The patient was placed in a supine position and transferred to the recovery area in a stable condition for observation. There was no evidence of lower extremity motor or sensory deficit after the procedure. Patient was discharged from the recovery room after meeting discharge criteria. Home discharge instructions were given to the patient by the staff. The patient was reexamined prior to discharge. The patient will schedule a follow up in the clinic in 2-4 weeks.
[2024-01-17 14:04] VITALS: PULSE 70; RESP 20
[2024-01-17 14:19] VITALS: BP 162/78
--- NOTE | 2024-01-17 15:56 | FL ---
EXAMINATION TYPE: FL guided pain mgmt statistic Intraoperative/procedural fluoroscopic services were provided. Total fluoroscopy time is 15.6 seconds with a total of 2 submitted images to PACS. Please s ee the operative/procedural note for further details. DAP: 0.1 11/06/1939 [id number]
== END 2024-01-17 14:21 | disposition home or self-care (01) ==
LOC: ORPAIN 11:32
PROVIDERS: ATTEND Pain Medicine Interventional Pain Medicine
DX: M48.061 Spinal stenosis, lumbar region without neurogenic claudication (principal); M47.816 Spondylosis without myelopathy or radiculopathy, lumbar region; M51.36 Other intervertebral disc degeneration, lumbar region; Z79.899 Other long term (current) drug therapy; Z88.5 Allergy status to narcotic agent; Z88.6 Allergy status to analgesic agent; Z88.8 Allergy status to other drugs, medicaments and biological substances
CPT/HCPCS: 62323; Q9967; J2795; J1010

== ENCOUNTER 2024-05-08 07:19 | Day surgery (SDC) | payer OTHER ==
[2024-05-05 11:36] VITALS: BMI 40.6
[2024-05-08] MEDS ORDERED: LACTATED RINGERS 1,000 ML IV SCH (08:18)
[2024-05-08 08:32] VITALS: RESP 18; TEMP 96.9
[2024-05-08 08:41] LABS: Glucose,Whole Blood 108 mg/dL (70-110)
[2024-05-08] MEDS ORDERED: IOPAMIDOL M200 10 ML VIAL ONE (09:43)
[2024-05-08] MEDS ORDERED: methylPREDNISolone ACETATE 40 MG/ML 1 ML VIAL ONE (09:43)
--- NOTE | 2024-05-08 09:49 | P.PCN ---
Date of Procedure: 05/08/24 Procedure(s) Performed: PREOPERATIVE DIAGNOSIS: 1- Lumbar Degenerative Disc Diseases 2-Lumbar spondylosis with Facet arthropathy without myelopathy. 3-lumbar spinal stenosis 4-lumbar radiculopathy POSTOPERATIVE DIAGNOSIS: 1-lumbar degenerative disc disease. 2-lumbar spondylosis with facet arthropathy without myelopathy. 3-lumbar spinal stenosis. 4-lumbar radiculopathy PROCEDURE 1. Lumbar epidural steroid injection under fluoroscopic guidance at the L5-S1 level. (Fluoroscopy imaging was available in radiology department) 2. Lumbar epidurogram. ANESTHESIA: Lidocaine 1% 3 and then only. EBL: Minimal PROCEDURE INDICATION: The patient with low back pain and radiculitis symptoms unresponsive to conservative treatment. Fluoroscopy was used to optimize visualization of the needle placement and to maximize safety. PROCEDURE DESCRIPTION / TECHNIQUE: The patient was seen and identified in the preoperative area. Risks, benefits, complications including but not limited to infections ,bleeding ,allergic reaction to the medications ,nerve damage and not complete pain releife , and alternatives were discussed with the patient. The patient agreed to proceed with the procedure and signed the consent, and vital signs were stable. Patient was taken to the OR and time out was completed. The patient was placed in the prone position on procedure table and a pillow was placed under the abdomen to reduce lumbar lordosis. The lumbosacral area was prepped and draped in the usual sterile fashion.ere closely monitored during the procedure. Vital signs was monitered during the entire procedure. Using anterior-posterior fluoroscopy, the L5-S1 interlaminar space was identified and the skin over this site was marked and then infiltrated with 1% lidocaine subcutaneously. Subsequently, a 20-gauge Tuohy epidural needle was inserted and advanced toward the epidural space using the ``Loss of resistance technique and guided by AP and lateral fluoroscopy. The correct needle position in the epidural space was verified with the injection of 2 mL of the water soluble contrast dye Isovue 200 contrast and observing an excellent epidurogram with the epidural spread of the dye, after negative aspiration for blood and CSF and in the absence of paresthesias. Again after negative aspiration, a 6 ml mixture containing 40 mg of Depo-medrol ( Preservetive Free ), and 2 ml of preservative free Normal Saline, and 2 ml of preservative free lidocaine 1% solution was injected and a washout of epidurogram was seen. Needle was withdrawn intact, skin was cleansed, and bandages were applied. COMPLICATIONS: None DISPOSITION / PLANS: The patient was placed in a supine position and transferred to the recovery area in a stable condition for observation. There was no evidence of lower extremity motor or sensory deficit after the procedure. Patient was discharged from the recovery room after meeting discharge criteria. Home discharge instructions were given to the patient by the staff. The patient was reexamined prior to discharge. The patient will schedule a follow up in the clinic in 2-4 weeks.
[2024-05-08 10:09] VITALS: BP 124/79; PULSE 62
--- NOTE | 2024-05-08 11:35 | FL ---
EXAMINATION TYPE: FL guided pain mgmt statistic DATE OF EXAM: 05/08/2024 FLUOROSCOPY LESI 2sec fluoro time [id number] Arango One image submitted. [facility], , 05/08/2024 11:32 AM
== END 2024-05-08 10:11 | disposition home or self-care (01) ==
LOC: ORPAIN 07:19
PROVIDERS: ATTEND Specialist
DX: M54.16 Radiculopathy, lumbar region
CPT/HCPCS: 62323

== ENCOUNTER → 2024-05-13 | Outpatient (CLI) | payer OTHER ==
[2024-05-13 19:54] LABS: Microalbumin Creatinine Ratio <17 mg/g Cr (0-30); Urine Creatinine 70.9 mg/dL (39.0-259.0)
== END | disposition home or self-care (01) ==
LOC: LABWHC1 13:20
PROVIDERS: ATTEND Internal Medicine Endocrinology, Diabetes & Metabolism
CPT/HCPCS: 82043; 82570

== ENCOUNTER → 2024-05-14 | Outpatient (CLI) | payer OTHER ==
[2024-05-14 15:18] LABS: ALT 13 U/L (10-49); AST 17 U/L (14-35); Albumin 4.3 g/dL (3.8-4.9); Albumin/Globulin Ratio 2.39 Ratio (1.60-3.17); Alkaline Phosphatase 67 U/L (41-126); Blood Urea Nitrogen 16.8 mg/dL (9.0-27.0); Calcium 8.7 mg/dL (8.7-10.3); Carbon Dioxide 25.6 mmol/L (21.6-31.8); Chloride 103 mmol/L (96-109); Chol/HDL Ratio 4.86 Ratio; Globulin 1.8 g/dL (1.6-3.3); Glucose 110 mg/dL (70-110); LDL Cholesterol,Calculated 150.8 mg/dL (0.0-131.0); Potassium 4.2 mmol/L (3.5-5.5); Prostate Specific Antigen 0.62 ng/mL (0.000-4.500); Sodium 140 mmol/L (135-145); Total Bilirubin 0.6 mg/dL (0.3-1.2); Total Protein 6.1 g/dL (6.2-8.2)
[2024-05-14 15:41] LABS: HCT 42.3 % (39.6-50.0); HGB 14.8 g/dL (13.0-17.0); MCH 32.7 pg (27.0-32.0); MCV 93.4 FL (80.0-97.0); Mean Platelet Volume 9.7 FL (9.5-12.2); NRBC Per 100 WBC 0 X 10*3/uL (0.00-0.01); Platelet Count 165 X 10*3/uL (140-440); RBC 4.53 X 10*6/uL (4.40-5.60); RDW 11.9 % (11.5-14.5); WBC 8.77 X 10*3/uL (4.50-10.00)
== END | disposition home or self-care (01) ==
LOC: LABWHC1 11:13
PROVIDERS: ATTEND Internal Medicine Endocrinology, Diabetes & Metabolism
CPT/HCPCS: 36415; 80053; 80061; 82024; 82533; 83036; 84153; 84403; 84443; 85027

== ENCOUNTER → 2024-10-24 | Outpatient (CLI) | payer OTHER ==
[2024-10-24 15:03] LABS: HCT 44.1 % (39.6-50.0); HGB 15.1 g/dL (13.0-17.0); MCH 31.9 pg (27.0-32.0); MCHC 34.2 g/dL (32.0-37.0); Mean Platelet Volume 9.4 FL (9.5-12.2); NRBC Per 100 WBC 0 X 10*3/uL (0.00-0.01); Platelet Count 174 X 10*3/uL (140-440); RBC 4.74 X 10*6/uL (4.40-5.60); RDW 12.1 % (11.5-14.5); WBC 7.63 X 10*3/uL (4.50-10.00)
[2024-10-24 15:44] LABS: Prolactin 14.5 ng/mL (2.100-17.000)
== END | disposition home or self-care (01) ==
LOC: LABWHC1 10:00
PROVIDERS: ATTEND Internal Medicine Endocrinology, Diabetes & Metabolism
DX: E27.40 Unspecified adrenocortical insufficiency (principal); E29.1 Testicular hypofunction; D35.2 Benign neoplasm of pituitary gland
CPT/HCPCS: 36415; 82024; 82533; 84146; 84153; 84403; 84443; 85027

== ENCOUNTER 2025-01-06 07:16 | Day surgery (SDC) | payer OTHER ==
[2025-01-05 09:32] VITALS: BMI 44.0
[2025-01-06] MEDS ORDERED: HEPARIN SODIUM,PORCINE (1 ML) 2,500 UNIT in SODIUM CHLORIDE 0.9% 250 ML IRRIGATION PRN (07:31)
[2025-01-06] MEDS ORDERED: NITROGLYCERIN SL TABS 0.4 MG TAB SUBLINGUAL PRN (07:31)
[2025-01-06] MEDS ORDERED: ASPIRIN 325 MG TAB PO STA (07:31)
[2025-01-06] MEDS ORDERED: ALPRAZolam 0.5 MG TAB PO PRN (07:31)
[2025-01-06] MEDS ORDERED: HEPARIN SODIUM,PORCINE 10,000 UNIT in SODIUM CHLORIDE 0.9% 1,000 ML IRRIGATION PRN (07:31)
[2025-01-06] MEDS ORDERED: ALPRAZolam 0.25 MG TAB PO PRN (07:31)
[2025-01-06 07:54] VITALS: TEMP 97.8
[2025-01-06] MEDS: SODIUM CHLORIDE 0.9% 1,000 ML in EMPTY BAG 1 BAG IV SCH (07:54)
[2025-01-06] MEDS: ASPIRIN 81 MG PO STA (07:56)
[2025-01-06] MEDS: IV FLUID CONTINUATION 1,000 ML IV ONE (07:59)
[2025-01-06] MEDS: HEPARIN SODIUM,PORCINE (1 ML) 2,500 UNIT in SODIUM CHLORIDE 0.9% 250 ML IRRIGATION ONE (09:09)
[2025-01-06] MEDS: HEPARIN SODIUM (1,000 UNIT/ML) 1,000 UNIT in SODIUM CHLORIDE 0.9% 1,000 ML IRRIGATION ONE (09:09)
[2025-01-06] MEDS: fentaNYL (PF) 50 MCG/1 ML VIAL IVP ONE (09:29)
[2025-01-06] MEDS: LIDOCAINE 2% (PF) 20 MG/ML 5 ML VIAL SQ ONE ×2 (09:29→09:31)
[2025-01-06] MEDS: VERAPAMIL 2.5 MG/ML 4 ML VIAL INTRAARTER ONE (09:31)
[2025-01-06] MEDS: HEPARIN SODIUM 1,000 UN/ML (10ML VL) IVP ONE (09:38)
[2025-01-06] MEDS: IOPAMIDOL-370 200ML BTL INTRATHECA ONE (09:56)
[2025-01-06] MEDS ORDERED: RX INFO: IV CONTRAST WAS GIVEN 1 EACH MISC MISCELLANE PRN (10:02)
--- NOTE | 2025-01-06 10:07 | P.CARDCATH ---
Date of Procedure: 01/06/25 Description of Procedure: Cardiac Catheterization: The patient is a 69-year-old male with a known history of hypertension, hyperlipidemia, diabetes who has been complaining of exertional chest discomfort, increasing in frequency and severity. He underwent an MPI that showed no evidence of stress-induced ischemia. He persisted in having the symptoms limiting his physical activity. Recommendations were made regarding cardiac catheterization, the risks and the complications were discussed with the patient who is in full understanding and agreement. Procedure Description: Patient was brought to label rewinder in fasting semi-sedated state after receiving Fentanyl and Benadryl achieiving moderate conscious sedated state. Using Xylocaine Anesthesia and modified Seldinger technique, a 6-Congolese sheath was introduced in the right radial artery . Subsequently, selective coronary angiography was performed using a 5-Congolese 3.5 bend Barbara catheter. Multiple views of the coronary artery including hemiaxial views were obtained. The 5 Congolese pigtail catheter was used to cross the aortic valve and LVEDP was calculated. Following that, catheter and sheath were removed. Hemostasis was obtained with deployment of vascular band . There was no immediate complication. Patient was returned to room in stable condition. Of note, the patient received a total of 5000 units of intravenous heparin as well as intra-arterial verapamil. Findings: Fluoroscopy: Calcification of the ostium of the RCA was noted. Left main: This is a short size vessel, bifurcating into LAD and left circumflex, left main has no obstructive disease LAD: This is a large size vessel, reaching to the apex with a wraparound apex segment giving rise to a large diagonal branch in the midsegment. The mid LAD has intimal disease of 2030% with no high-grade stenosis Left circumflex: This is a nondominant vessel, large in caliber, giving rise to 2 obtuse marginal branch, the first 1 is very proximal. The left circumflex has mild intimal disease with no evidence of high-grade stenosis RCA: This is a dominant vessel, large in caliber, bifurcating into PDA and PLV. The RCA and its branches have intimal disease of 20 to 30% throughout its course. Left Ventriculogram: Not performed Hemodynamics: There was no gradient across the aortic valve, LVEDP was 18-22 mmHg Conclusion: 1. Calcified ostium of the RCA 2. Mild triple-vessel disease 3. Right dominance 4. Mildly elevated LVEDP Recommendations: I have recommended to continue medical therapy with the aggressive coronary risks modification initiated. The findings and the recommendations were discussed with the patient and the family and they were in full understanding and agreement. Duration of sedation is 15 minutes.
[2025-01-06] MEDS ORDERED: SODIUM CHLORIDE 0.9% 1,000 ML IV SCH (10:15)
[2025-01-06 12:01] VITALS: RESP 16
[2025-01-06 12:22] VITALS: BP 147/83; PULSE 75
[2025-01-06] MEDS ORDERED: HYDROCORTISONE 10 MG TAB PO SCH (16:00)
[2025-01-07] MEDS ORDERED: amLODIPine 5 MG TAB PO SCH (09:00)
[2025-01-07] MEDS ORDERED: EZETIMIBE 10 MG TAB PO SCH (09:00)
== END 2025-01-06 13:07 | disposition home or self-care (01) ==
LOC: CATHCVL 07:16
PROVIDERS: ATTEND Internal Medicine Interventional Cardiology
DX: I25.10 Atherosclerotic heart disease of native coronary artery without angina pectoris (principal); I71.21 Aneurysm of the ascending aorta, without rupture; I73.9 Peripheral vascular disease, unspecified; I10 Essential (primary) hypertension; E78.5 Hyperlipidemia, unspecified; E78.2 Mixed hyperlipidemia; E11.9 Type 2 diabetes mellitus without complications; Z72.0 Tobacco use; Z88.8 Allergy status to other drugs, medicaments and biological substances; Z79.890 Hormone replacement therapy; Z79.899 Other long term (current) drug therapy
CPT/HCPCS: 93458; 99152; C1769 ×2; C1894; J1644 ×2; J2003; J3010; Q9967

== ENCOUNTER → 2025-01-26 | Outpatient (CLI) | payer OTHER ==
[2025-01-26 19:23] LABS: HGB 16.3 g/dL (13.0-17.0); MCH 32.5 pg (27.0-32.0); MCHC 34.7 g/dL (32.0-37.0); MCV 93.6 FL (80.0-97.0); Mean Platelet Volume 9.9 FL (9.5-12.2); NRBC Per 100 WBC 0 X 10*3/uL (0.00-0.01); Platelet Count 205 X 10*3/uL (140-440); RBC 5.02 X 10*6/uL (4.40-5.60); WBC 6.91 X 10*3/uL (4.50-10.00)
[2025-01-26 21:22] LABS: ALT 20 U/L (10-49); AST 21 U/L (14-35); Albumin 4.4 g/dL (3.8-4.9); Alkaline Phosphatase 71 U/L (41-126); BUN/Creat Ratio 17.57 Ratio (12.00-20.00); Blood Urea Nitrogen 12.3 mg/dL (9.0-27.0); Calcium 8.8 mg/dL (8.7-10.3); Carbon Dioxide 30.3 mmol/L (21.6-31.8); Chloride 102 mmol/L (96-109); Globulin 2.2 g/dL (1.6-3.3); Glucose 163 mg/dL (70-110); Potassium 3.9 mmol/L (3.5-5.5); Sodium 140 mmol/L (135-145); T4, Free (Free Thyroxine) 1.15 ng/dL (0.80-1.80); Total Bilirubin 0.4 mg/dL (0.3-1.2); Total Protein 6.6 g/dL (6.2-8.2)
[2025-01-26 23:18] LABS: ACTH 9.93 pg/mL (0.00-45.99)
== END | disposition home or self-care (01) ==
LOC: LABWHC1 13:23
PROVIDERS: ATTEND Internal Medicine Endocrinology, Diabetes & Metabolism
DX: E11.9 Type 2 diabetes mellitus without complications (principal); D35.2 Benign neoplasm of pituitary gland; E27.40 Unspecified adrenocortical insufficiency; E29.1 Testicular hypofunction
CPT/HCPCS: 36415; 80053; 82024; 82533; 83036; 84146; 84153; 84305; 84403; 84439; 84443; 84480; 85027

== ENCOUNTER → 2025-02-25 | Outpatient (CLI) | payer OTHER ==
[2025-02-25 08:54] VITALS: BP 136/75; PULSE 64; RESP 16
--- NOTE | 2025-02-25 14:16 | P.PAINPG ---
Objective - Vital Signs Vital signs: Intake & Output 02/24/25 02/25/25 02/25/25 18:59 06:59 18:59 Weight 145.603 kg PQRS Measure Charge Sheet Comment: HISTORY OF PRESENT ILLNESS: A 69 yr old male w at side presents today w severe and chronic LBP x 50 yrs ( parachute jump injury) secondary to radiculopathy, spondylosis and facet arthropathy without myelopathy for evaluation s/p GAMA L5-S1 #4. Pt states he experienced 80% pain relief x 8 mo s/p procedure. Pt states pain level is provoked at 4-7 /10 in intensity, constant, localized in the lower lumbar spine, predominantly axial, stabbing in character w occasional shooting pain towards the hip and feet. Pain is provoked by walking/ standing for periods of 20 min or more. Pain is alleviated by PT x 6 wks in May 2023, physician guided exercises 5 times weekly since May 2023, medications , repositioning and rest. Interventional procedures include GAMA L5-S1 x4 (01/20, 05/22) Medications include Flexeril, Celebrex, Tyl REVIEW OF ORGAN SYSTEMS: CONSTITUTIONAL: No fevers or chills. No recent weight loss. NEUROLOGICAL: + numbness and tingling along the distal extremities. No seizure disorders or headaches. MUSCULOSKELETAL: + pain PSYCHIATRIC: Denies current depression or suicidal thoughts. Physical Examinations : Constitutional : Cooperative , not in acute distress . Neurologic : Cranial nerve II to XII intact. No focal neurological deficits. Psychiatric : alert & oriented x 3. Matching mood & appropriate affect. Judgment & insight intact. Musculoskeletal : Cervical Spine Motor strength in the deltoid and biceps: Normal right side. Normal Left side Motor strength biceps and the wrist extensors: Normal right side . Normal left side Motor strength in the triceps muscle: Normal right side. Normal left side Deep tendon reflexes: Normal at the biceps. Normal at Brachioradialis. Normal at triceps Vertebral body tenderness to deep palpation over Cervical facet loading test: positive bilaterally Spurling test: positive bilaterally Neck distraction test: positive bilaterally Julissa sign: positive bilaterally Lumbar spine Motor strength lower extremities ,thigh and legs 5/5 Right side , 5/5 Left side Deep tendon reflexes : Normal Knee Jerk. Normal Ankle Jerk Vertebral body tenderness over L5 Garcia Test positive Lumbar facet Loading Test: positive Right / positive Left Range of motion of the lumbar spine Flexion 30 degrees, extension 10 degrees Straight Leg Raise test: Left/ Right positive at < 35 degrees Osmin test: positive right / positive left. Severe tenderness over the Sacroiliac joint on the Right / Left sides Gaenslen test: positive bilaterally Seated flexion test: positive bilaterally. Sacral spine : Severe tenderness over the Sacroiliac joint: right side / left side Range of motion: Flexion of the lumbar spine <60 degrees Range of motion: Extension of the lumbar spine <20 degrees Gaenslen's Test positive Osmin test: positive right side / left side Thigh Thrust Test Sacral Thrust Test Imaging: MRI noncontrast of the lumbar spine from 03/16/23 reviewed Assessment/ Plan : Lumbar radiculopathy Recommendation of GAMA L5-S1 #1. Risks, benefits of procedure discussed and pt verbalized understanding. Protocol for discontinuation/ continuation of medications annabelle procedure discussed. All questions answered. I have spent greater than 30 minutes on patient care today. Dr Agosto was available by phone for the evaluation of this patient. The time was used to review the medical records including relevant urine studies and Prescription history (MAPs), review of the available imaging, evaluation and examination of the patient, coordination of care with the medical staff and if applicable referring physicians, as well as creation of the medical record PQRS Narrative: Smoking Status Former smoker Hx Alcohol Use (MH) No Home Medications: Ambulatory Orders Testosterone Cypionate [Depo-Testosterone] 100 mg IM [id number] 09/04/16 Hydrocortisone [Cortef] 10 mg PO TID 11/16/20 Cholecalciferol [Vitamin D3 (25 Mcg = 1000 Iu)] 25 mcg PO BID 12/24/20 Sildenafil Citrate [Viagra] 100 mg PO DAILY PRN 12/24/20 Levothyroxine Sodium [Synthroid] 150 mcg PO DAILY 03/27/22 Celecoxib [CeleBREX] 200 mg PO BID PRN 08/03/23 Cyclobenzaprine [Flexeril] 10 mg PO Q30D PRN 08/07/23 Albuterol Sulfate [Albuterol Sulfate Hfa] 1 puff PO RT-Q6H PRN 10/12/23 Carboxymethylcellulose Sodium [Refresh Tears] 1 drop BOTH EYES BID 10/12/23 Famotidine 20 mg PO DAILY 05/05/24 Ezetimibe [Zetia] 10 mg PO DAILY 01/05/25 Vitamin D3/Vitamin K2 (Mk4) [Vitamin K2 Plus D3 Tablet] 125 - 180 mcg PO DAILY 01/05/25 Zinc Gluconate [Zinc] 50 mg PO DAILY 01/05/25 amLODIPine [Norvasc] 5 mg PO DAILY 01/05/25 hydroCHLOROthiazide 25 mg PO DAILY 01/05/25 Aspirin 81 mg PO ONCE 01/06/25 Controlled Substance Measures - Controlled Substance Measures Is patient prescribed a controlled substance at discharge?: No
== END ==
LOC: PNWHC3 08:43
PROVIDERS: ATTEND Specialist
DX: M47.26 Other spondylosis with radiculopathy, lumbar region (principal); M48.061 Spinal stenosis, lumbar region without neurogenic claudication; M43.16 Spondylolisthesis, lumbar region; Z88.5 Allergy status to narcotic agent; Z88.8 Allergy status to other drugs, medicaments and biological substances; Z87.891 Personal history of nicotine dependence
CPT/HCPCS: 99211